=== PATIENT | female | born 1945 | race Caucasian/White ===

== ENCOUNTER 2017-12-06 15:16 | Emergency (ER) | payer MEDICARE ==
[2017-12-06] MEDS ORDERED: Sulfamethoxazole/Trimethoprim 800-160 MG Tab PO ONE (15:17)
[2017-12-06 15:32] VITALS: BP 148/77
--- NOTE | 2017-12-06 17:03 | EDM.PDOC ---
ED HPI GENERAL MEDICAL PROBLEM - General Chief Complaint: General Stated Complaint: falls, "hands are shaky" Time Seen by Provider: 12/06/17 16:06 Source of Information: Reports: Patient, Family () History Limitations: Reports: No Limitations - History of Present Illness INITIAL COMMENTS - FREE TEXT/NARRATIVE: Marielle is a 72 yo female who presents to the ER via private vehicle, accompanied by her . She has multiple complaints today. is concerned that she has fallen 3 times in the last few weeks. ADmits the first time she fell she was out power walking with him and ended up tripping. She was seen on the 26 of November by Cathi Penaloza and had x-rays of her right shoulder, ribs and right knee, which were unremarkable. This was roughly a week after her fall. She did hit her head on that occasion but had no loss of consciousness. She also complains of hand tremors which she is on propanolol for. We had seen her on the 17 of November and had increased her propanolol but she admits she never increased it and has not taken it for the last few days. She has right lower back pain and also has right knee pain as well still. We had filled out physical therapy form for referral and advised she may take her Tramadol for discomfort on the 30 of November. feels she has been more down, she does take an antidepressant. He feels the falls have brought her down and have made her more scared and worried about things. Right Lower Back Pain Score (Numeric/FACES): 4 - Related Data Allergies Allergy/AdvReac Type Severity Reaction Status Date / Time No Known Allergies Allergy Verified 12/06/17 15:31 Home Meds: Home Meds Cholecalciferol (Vitamin D3) [Vitamin D] 2,000 unit PO DAILY 10/30/13 [History] Multivitamin with Minerals [Multiple Vitamin] 1 tab PO DAILY 10/30/13 [History] Omeprazole [priLOSEC OTC] 20 mg PO DAILY 10/30/13 [History] Simvastatin [Zocor] 20 mg PO DAILY 10/30/13 [History] Aspirin [Adult Low Dose Aspirin EC] 81 mg PO DAILY 04/30/14 [History] Denosumab [Prolia] 60 mg SUBCUT ASDIRECTED 04/30/14 [History] FLUoxetine HCl [Fluoxetine HCl] 40 mg PO DAILY 12/06/17 [History] Propranolol HCl 20 mg PO BID 12/06/17 [History] Vitamin E 400 unit PO DAILY 12/06/17 [History] traMADol HCl [Tramadol HCl] 50 mg PO Q6H PRN 12/06/17 [History] Past Medical History HEENT History: Reports: Hard of Hearing Cardiovascular History: Reports: High Cholesterol Gastrointestinal History: Reports: Chronic Constipation, GERD, PUD Genitourinary History: Reports: Other (See Below) Other Genitourinary History: hematuria Musculoskeletal History: Reports: Arthritis, Osteoporosis Psychiatric History: Reports: Depression Endocrine/Metabolic History: Reports: Vitamin D Deficiency Hematologic History: Reports: Iron Deficiency - Past Surgical History GI Surgical History: Reports: Appendectomy Social & Family History - Tobacco Use Smoking Status *Q: Never Smoker - Recreational Drug Use Recreational Drug Use: No ED ROS GENERAL - Review of Systems Review Of Systems: See Below Constitutional: Reports: Fatigue. Denies: Fever, Chills HEENT: Reports: No Symptoms Respiratory: Reports: No Symptoms Cardiovascular: Reports: No Symptoms GI/Abdominal: Reports: No Symptoms : Reports: Frequency Musculoskeletal: Reports: Shoulder Pain, Joint Pain, Muscle Stiffness Neurological: Reports: Headache, Weakness. Denies: Change in Speech Psychiatric: Reports: Confusion ED EXAM, GENERAL - Physical Exam Exam: See Below Exam Limited By: No Limitations General Appearance: Alert, No Apparent Distress Eye Exam: Bilateral Eye: EOMI, PERRL Ears: Normal External Exam, Normal Canal, Normal TMs, Hearing Loss, Other ( bilateral hearing aids) Nose: Normal Inspection, Normal Mucosa, No Blood Throat/Mouth: Normal Inspection, Normal Lips, Normal Teeth, Normal Gums, Normal Oropharynx, Normal Voice, No Airway Compromise Head: Atraumatic, Normocephalic Neck: Normal Inspection, Supple, Non-Tender Respiratory/Chest: No Respiratory Distress, Lungs Clear, Normal Breath Sounds, No Accessory Muscle Use Cardiovascular: Regular Rate, Rhythm, No Edema, No Murmur GI/Abdominal: Normal Bowel Sounds, Soft, No Organomegaly, No Abnormal Bruit, No Mass Neurological: Alert, Oriented, No Motor/Sensory Deficits, Confused (slight confusion), Other (Score 23 Mini Mental exam) Psychiatric: Normal Affect, Normal Mood Skin Exam: Warm, Dry, Intact, Normal Color, No Rash Course - Vital Signs Last Recorded V/S: Last Vital Signs Temp 98.1 F 12/06/17 15:23 Pulse 83 12/06/17 15:23 Resp 20 12/06/17 15:23 BP 148/77 H 12/06/17 15:23 Pulse Ox 98 12/06/17 15:23 - Orders/Labs/Meds Orders: Active Orders 24 hr Category Date Time Status Head wo Cont [CT] Stat Exams 12/06/17 16:19 Taken Labs: Laboratory Tests 12/06/17 Range/Units 16:25 Urine Color Yellow (YELLOW) Urine Appearance Slightly cloudy (CLEAR) Urine pH 7.0 (4.5-8.0) Ur Specific [place] 1.020 (1.003-1.020) Urine Protein Negative (NEGATIVE) mg/dL Urine Glucose (UA) Negative (NEGATIVE) mg/dL Urine Ketones 80 H (NEGATIVE) mg/dL Urine Occult Blood Moderate H (NEGATIVE) Urine Nitrite Negative (NEGATIVE) Urine Bilirubin Negative (NEGATIVE) Urine Urobilinogen 4.0 H (0.2-1.0) EU/dL Ur Leukocyte Esterase Moderate H (NEGATIVE) Urine RBC 5-10 H (0-5) /HPF Urine WBC 10-20 H (0-5) /HPF Ur Squamous Epith Cells Few H (NOT SEEN) /HPF Amorphous Sediment Few H (NOT SEEN) /HPF Urine Bacteria Few H (NOT SEEN) /HPF Meds: Medications Discontinued Medications Generic Name Dose Route Start Last Admin Trade Name Freq PRN Reason Stop Dose Admin Trimethoprim/Sulfamethoxazole 1 packet 12/06/17 17:30 Take Home: Sulfameth/Trimet 800-160mg, 2 Pack PO 12/06/17 17:31 ONETIME ONE Departure - Departure Time of Disposition: 17:06 Disposition: Home, Self-Care 01 Clinical Impression: UTI, Urinary tract infectious disease, Frequent falls - Discharge Information Instructions: Urinary Tract Infection, Adult, [id number] Referrals: Anjel Cason PA-C [Primary Care Provider] - Forms: ED Department Discharge Additional Instructions: 1) Bactrim DS - 1 tablet twice a day for 7 days 2) Physical therapy referral as well. 3) Recheck in clinic after finishing antibiotic, sooner if any concerns. 4) Encourage increasing water intake. - Problem List & Annotations (1) UTI, Urinary tract infectious disease SNOMED Code(s): 65975686 Code(s): N39.0 - URINARY TRACT INFECTION, SITE NOT SPECIFIED Status: Acute Current Visit: Yes (2) Frequent falls SNOMED Code(s): 921024642 Code(s): R29.6 - REPEATED FALLS Status: Acute Current Visit: Yes - Problem List Review Problem List Initiated/Reviewed/Updated: Yes - My Orders Last 24 Hours: My Active Orders 12/06/17 16:19 Head wo Cont [CT] Stat - Assessment/Plan Last 24 Hours: My Active Orders 12/06/17 16:19 Head wo Cont [CT] Stat Plan: CT head was negative. Will treat UTI with Bactrim DS. REcommend follow up appointment in clinic after finishing antibiotic. may return sooner if any concerns. Advise increasing water intake. Physical therapy referral given as she had lost her last one. I do feel with her arthralgias it will give her some relief.
[2017-12-06] MEDS ORDERED: Take Home: Sulfamethoxazole/Trimethoprim 800-160 MG Tab, 2 Tab Pack PO ONE (17:30)
== END 2017-12-06 17:50 | disposition home or self-care (01) ==
LOC: CC.ED 15:16
DX: N39.0 Urinary tract infection, site not specified (principal); R29.6 Repeated falls; Z79.82 Long term (current) use of aspirin; Z79.899 Other long term (current) drug therapy
CPT/HCPCS: 70450; 81001; 99283; A9270; 99284

== ENCOUNTER 2019-02-16 12:24 | Emergency (ER) | payer MEDICARE ==
[2019-02-16 12:41] VITALS: BP 119/65; PULSE 83
[2019-02-16 13:24] LABS: CHLORIDE,CL 103 mEq/L (98-106); SODIUM,NA 143 mEq/L (136-145)
--- NOTE | 2019-02-16 14:06 | EDM.PDOC ---
ED HPI GENERAL MEDICAL PROBLEM - General Chief Complaint: General Stated Complaint: NAUSEA Time Seen by Provider: 02/16/19 12:30 Source of Information: Reports: Patient, Family History Limitations: Reports: No Limitations - History of Present Illness INITIAL COMMENTS - FREE TEXT/NARRATIVE: Patient presents to ER with with concerns of not feeling well. States had issues with nausea and vomiting this am. Patient does have some issues with relating story due to memory loss but able "to fill in the blanks" . She has a history of tremors for the last year and was seen by a neurologist a month ago. Sinemet was increased from TID to QID at that time and patient and concerned this is leading to her nausea. She has been on Sinemet for about a year. Does believe the med does help her tremors. Per the neurology note, is concerns for Parkinson's syndrome. She has had balance issues for some time. Did take much conversation to determine why patient was asking to be seen today as concerns of her med have been ongoing for about 3 weeks. states that is unusual for her to call him at work and complain of being "sick". Denies any chest pain, shortness of breath or present nausea. Did have one emesis this am. Complains of not having a good BM for several days, had small one 2 days ago. No fevers. No abdominal pain. Does feel bloated. Onset: Gradual Duration: Week(s): Location: Reports: Abdomen Associated Symptoms: Reports: Confusion, Loss of Appetite, Nausea/Vomiting. Denies: Chest Pain, Cough, Fever/Chills, Headaches, Shortness of Breath, Syncope , Weakness - Related Data Allergies Allergy/AdvReac Type Severity Reaction Status Date / Time No Known Allergies Allergy Verified 02/16/19 12:42 Home Meds: Home Meds Cholecalciferol (Vitamin D3) [Vitamin D] 5,000 unit PO DAILY 10/30/13 [History] Multivitamin with Minerals [Multiple Vitamin] 1 tab PO DAILY 10/30/13 [History] Simvastatin [Zocor] 20 mg PO DAILY 10/30/13 [History] Aspirin [Adult Low Dose Aspirin EC] 81 mg PO DAILY 04/30/14 [History] Denosumab [Prolia] 60 mg SUBCUT ASDIRECTED 04/30/14 [History] FLUoxetine HCl [Fluoxetine HCl] 40 mg PO DAILY 12/06/17 [History] Propranolol HCl 40 mg PO BID 12/06/17 [History] Vitamin E 400 unit PO DAILY 12/06/17 [History] Carbidopa/Levodopa [Carbidopa-Levodopa 25-100 Tab] 25 - 100 mg PO QID 02/16/19 [ History] Omeprazole 20 mg PO DAILY 02/16/19 [History] Past Medical History HEENT History: Reports: Hard of Hearing Cardiovascular History: Reports: High Cholesterol Gastrointestinal History: Reports: Chronic Constipation, GERD, PUD Genitourinary History: Reports: Other (See Below) Other Genitourinary History: hematuria [employer] F[employer]ER History: Reports: Musculoskeletal History: Reports: Arthritis, Osteoporosis Psychiatric History: Reports: Depression Endocrine/Metabolic History: Reports: Vitamin D Deficiency Hematologic History: Reports: Iron Deficiency - Past Surgical History GI Surgical History: Reports: Appendectomy Social & Family History - Family History Family Medical History: Noncontributory - Tobacco Use Smoking Status *Q: Former Smoker Years of Tobacco use: 30 Packs/Tins Daily: 0.2 Used Tobacco, but Quit: Yes Month/Year Tobacco Last Used: 1979 - Caffeine Use Caffeine Use: Reports: Coffee, Soda - Recreational Drug Use Recreational Drug Use: No ED ROS GENERAL - Review of Systems Review Of Systems: See Below Constitutional: Reports: Fatigue, Decreased Appetite. Denies: Fever, Chills, Malaise, Weakness Respiratory: Denies: Shortness of Breath, Cough Cardiovascular: Denies: Chest Pain, Edema, Lightheadedness Endocrine: Reports: Fatigue GI/Abdominal: Reports: Constipation, Decreased Appetite, Distension, Nausea, Vomiting. Denies: Abdominal Pain : Reports: No Symptoms Musculoskeletal: Reports: No Symptoms Skin: Reports: No Symptoms Neurological: Reports: Confusion Psychiatric: Reports: No Symptoms ED EXAM, GENERAL - Physical Exam Exam: See Below Exam Limited By: No Limitations General Appearance: Alert, WD/WN, No Apparent Distress Ears: Normal External Exam, Normal TMs Nose: Normal Inspection, Normal Mucosa, No Blood Throat/Mouth: Normal Inspection, Normal Oropharynx Head: Normocephalic Neck: Normal Inspection, Supple, Non-Tender Respiratory/Chest: No Respiratory Distress, Lungs Clear, Normal Breath Sounds GI/Abdominal: Normal Bowel Sounds, Soft, Non-Tender Extremities: Other (tremors, right greater than left) Neurological: Alert, Oriented (person and place) Skin Exam: Warm, Dry Course - Vital Signs Last Recorded V/S: Last Vital Signs Temp 98.4 F 02/16/19 12:38 Pulse 83 02/16/19 12:38 Resp 18 02/16/19 12:38 BP 119/65 02/16/19 12:38 Pulse Ox 98 02/16/19 12:38 - Orders/Labs/Meds Labs: Laboratory Tests 02/16/19 02/16/19 Range/Units 12:48 12:48 WBC 6.5 (5.0-10.0) 10^3/uL RBC 4.87 (4.00-5.50) 10^6/uL Hgb 14.7 (12.0-16.0) g/dL Hct 44.7 (37.0-47.0) % MCV 91.8 (82.0-94.0) fL MCH 30.2 (27.0-32.0) pg MCHC 32.9 L (33.0-38.0) g/dL RDW Coeff of Catrina 13.9 (11.0-15.0) % Plt Count 309 (150-400) 10^3/uL Neut % (Auto) 67.3 (35-85) % Lymph % (Auto) 22.1 (10-55) % [place] % (Auto) 8.3 (0-16) % Eos % (Auto) 2.0 (0-5) % Baso % (Auto) 0.3 (0-3) % Neut # (Auto) 4.39 (1.80-7.00) 10^3/uL Lymph # (Auto) 1.44 (1.00-4.80) 10^3/uL [place] # (Auto) 0.54 (0.00-0.80) 10^3/uL Eos # (Auto) 0.13 (0.00-0.45) 10^3/uL Baso # (Auto) 0.02 10^3/uL Sodium 143 (136-145) mEq/L Potassium 4.0 (3.5-5.0) mEq/L Chloride 103 (98-106) mEq/L Carbon Dioxide 27 (21-32) mmol/L BUN 9 (7-18) mg/dL Creatinine 0.8 (0.6-1.0) mg/dL Est Cr Clr Drug Dosing 51.03 mL/min Estimated GFR (MDRD) > 60 (>=60) mL/min Glucose 105 H (75-99) mg/dL Calcium 9.8 (8.4-10.1) mg/dL Total Bilirubin 0.7 (0.0-1.0) mg/dL AST 25 (15-37) U/L ALT 6 L (12-78) U/L Alkaline Phosphatase 69 (46-116) U/L C-Reactive Protein < 0.2 L (0.2-0.8) mg/dL Total Protein 7.1 (6.4-8.2) g/dL Albumin 4.1 (3.4-5.0) g/dL - Re-Assessments/Exams Free Text/Narrative Re-Assessment/Exam: 02/16 Labs are normal. Xray shows large amount of stool, no obstruction. Discussed results and medication possible side effects. Is willing to continue to take Sinemet QID as does believe it is necessary to help tremors. Offered enema but declines, feels can do this at home. Will need to start a stool softener. Zofran for nausea. Follow up with Dr. aJmil if side effects persist. verbalizes understanding. Departure - Departure Time of Disposition: 14:03 Disposition: Home, Self-Care 01 Condition: Good Clinical Impression: Constipation - Discharge Information *PRESCRIPTION DRUG MONITORING PROGRAM REVIEWED*: No *COPY OF PRESCRIPTION DRUG MONITORING REPORT IN PATIENT FLO: No Referrals: Bharat Jamil MD [Primary Care Provider] - Forms: ED Department Discharge Additional Instructions: 1. Fleets enema or dulcolax suppository- can obtain from pharmacy 2. Start Colace twice a day 3. Push fluids 4. Zofran 4 mg under tongue as needed for nausea 5. Follow up with Dr. Jamil if continue to have intolerance of Sinemet 6. Call with any questions or concerns. Sepsis Event Note - Evaluation Sepsis Screening Result: No Definite Risk - Focused Exam Date Exam was Performed: 02/18/19 Time Exam was Performed: 20:15
== END 2019-02-16 14:10 | disposition home or self-care (01) ==
LOC: CC.ED 12:24 → SUPCPDRO 12:24 → CC.ED 14:10
DX: K59.00 Constipation, unspecified (principal); E78.00 Pure hypercholesterolemia, unspecified; K21.9 Gastro-esophageal reflux disease without esophagitis; M19.90 Unspecified osteoarthritis, unspecified site; F32.9 Major depressive disorder, single episode, unspecified; Z87.891 Personal history of nicotine dependence; Z79.899 Other long term (current) drug therapy; Z79.82 Long term (current) use of aspirin
CPT/HCPCS: 36415; 74019; 80053; 85025; 86140; 99284; 99285-25

== ENCOUNTER 2019-03-25 16:33 | Emergency (ER) | payer MEDICARE ==
[2019-03-25 16:56] VITALS: BP 148/84; PULSE 82
--- NOTE | 2019-03-25 18:04 | EDM.PDOC ---
ED HPI GENERAL MEDICAL PROBLEM - General Chief Complaint: General Stated Complaint: constipation, abdomen pain Time Seen by Provider: 03/25/19 16:53 Source of Information: Reports: Patient History Limitations: Reports: No Limitations - History of Present Illness INITIAL COMMENTS - FREE TEXT/NARRATIVE: This patient is a 73 year old female that presents to the ER. Patient is with her that is also historian for this patient. Patient reports that today she was out shopping when she started having some mild abdominal pain. Patient reports that it "feels like I have to go, but cant." The reports that he thinks she is constipated. The patent denies rousseau, dizziness, n, v, d, f, chest pain, shortness of breath. The patient has attempted to go the bathroom twice since being in the ER, without success for BM. Onset: Today Onset Date: 03/25/19 Location: Reports: Abdomen Quality: Reports: Other ("feel like need to go, but cant") Severity: Mild Improves with: Reports: None Worsens with: Reports: None Associated Symptoms: Denies: Confusion, Chest Pain, Cough, cough w sputum, Diaphoresis, Fever/Chills, Headaches, Loss of Appetite, Malaise, Nausea/Vomiting , Rash, Seizure, Shortness of Breath, Syncope, Weakness Right Middle Abdomen Pain Score (Numeric/FACES): 2 - Related Data Allergies Allergy/AdvReac Type Severity Reaction Status Date / Time No Known Allergies Allergy Verified 02/16/19 12:42 Home Meds: Home Meds Cholecalciferol (Vitamin D3) [Vitamin D] 5,000 unit PO DAILY 10/30/13 [History] Multivitamin with Minerals [Multiple Vitamin] 1 tab PO DAILY 10/30/13 [History] Simvastatin [Zocor] 20 mg PO DAILY 10/30/13 [History] Aspirin [Adult Low Dose Aspirin EC] 81 mg PO DAILY 04/30/14 [History] FLUoxetine HCl [Fluoxetine HCl] 40 mg PO DAILY 12/06/17 [History] Propranolol HCl 40 mg PO BID 12/06/17 [History] Vitamin E 400 unit PO DAILY 12/06/17 [History] Carbidopa/Levodopa [Carbidopa-Levodopa 25-100 Tab] 25 - 100 mg PO QID 02/16/19 [ History] Omeprazole 20 mg PO DAILY 01/03/20 [History] Past Medical History HEENT History: Reports: Hard of Hearing Cardiovascular History: Reports: High Cholesterol Gastrointestinal History: Reports: Chronic Constipation, GERD, PUD Genitourinary History: Reports: Other (See Below) Other Genitourinary History: hematuria [employer] History: Reports: Musculoskeletal History: Reports: Arthritis, Osteoporosis Neurological History: Reports: Parkinson's Psychiatric History: Reports: Depression Endocrine/Metabolic History: Reports: Vitamin D Deficiency Hematologic History: Reports: Iron Deficiency - Past Surgical History HEENT Surgical History: Reports: None Cardiovascular Surgical History: Reports: None GI Surgical History: Reports: Appendectomy Female Surgical History: Reports: None Endocrine Surgical History: Reports: None Musculoskeletal Surgical History: Reports: None Social & Family History - Family History Family Medical History: Noncontributory - Tobacco Use Smoking Status *Q: Never Smoker Second Hand Smoke Exposure: No - Caffeine Use Caffeine Use: Reports: None - Recreational Drug Use Recreational Drug Use: No ED ROS GENERAL - Review of Systems Review Of Systems: See Below Constitutional: Reports: No Symptoms HEENT: Reports: No Symptoms Respiratory: Reports: No Symptoms Cardiovascular: Reports: No Symptoms Endocrine: Reports: No Symptoms GI/Abdominal: Reports: Abdominal Pain, Constipation. Denies: Nausea, Vomiting Musculoskeletal: Reports: No Symptoms Skin: Reports: No Symptoms Neurological: Reports: No Symptoms Psychiatric: Reports: No Symptoms Hematologic/Lymphatic: Reports: No Symptoms Immunologic: Reports: No Symptoms ED EXAM, GENERAL - Physical Exam Exam: See Below Exam Limited By: No Limitations General Appearance: Alert, WD/WN, No Apparent Distress Eye Exam: Bilateral Eye: Normal Inspection, PERRL Ears: Normal External Exam, Normal Canal, Hearing Grossly Normal, Normal TMs Ear Exam: Bilateral Ear: Auricle Normal, Canal Normal, TM normal Nose: Normal Inspection, Normal Mucosa, No Blood Throat/Mouth: Normal Inspection, Normal Lips, Normal Teeth, Normal Gums, Normal Oropharynx, Normal Voice, No Airway Compromise Head: Atraumatic, Normocephalic Neck: Normal Inspection, Supple, Non-Tender, Full Range of Motion Respiratory/Chest: No Respiratory Distress, Lungs Clear, Normal Breath Sounds, No Accessory Muscle Use, Chest Non-Tender Cardiovascular: Normal Peripheral Pulses, Regular Rate, Rhythm, No Edema, No Gallop, No JVD, No Murmur, No Rub Peripheral Pulses: 2+: Radial (L), Radial (R), Posterior Tibial (L), Posterior Tibial (R) GI/Abdominal: Normal Bowel Sounds, Soft, Non-Tender, No Organomegaly, No Distention, No Abnormal Bruit, No Mass, Pelvis Stable. No: Guarding, Tender Back Exam: Normal Inspection, Full Range of Motion Extremities: Normal Inspection, Normal Range of Motion, Non-Tender, No Pedal Edema, Normal Capillary Refill Neurological: Alert, Oriented, Normal Cognition, Normal Gait, No Motor/Sensory Deficits Psychiatric: Normal Affect, Normal Mood Skin Exam: Warm, Dry, Intact, Normal Color, No Rash Lymphatic: No Adenopathy Course - Vital Signs Last Recorded V/S: Last Vital Signs Temp 98.3 F 03/25/19 16:50 Pulse 82 03/25/19 16:50 Resp 16 03/25/19 16:50 BP 148/84 H 03/25/19 16:50 Pulse Ox 100 03/25/19 16:50 - Orders/Labs/Meds Orders: Active Orders 24 hr Category Date Time Status Enema [RC] ASDIRECTED Care 03/25/19 18:05 Active Abdomen 2V AP Flat Upright [CR] Stat Exams 03/25/19 17:05 Taken Labs: Laboratory Tests 03/25/19 03/25/19 03/25/19 Range/Units 17:05 17:05 17:05 WBC 7.5 (5.0-10.0) 10^3/uL RBC 4.48 (4.00-5.50) 10^6/uL Hgb 13.6 (12.0-16.0) g/dL Hct 41.4 (37.0-47.0) % MCV 92.4 (82.0-94.0) fL MCH 30.4 (27.0-32.0) pg MCHC 32.9 L (33.0-38.0) g/dL RDW Coeff of Catrina 14.1 (11.0-15.0) % Plt Count 279 (150-400) 10^3/uL Neut % (Auto) 70.7 (35-85) % Lymph % (Auto) 16.6 (10-55) % [place] % (Auto) 11.9 (0-16) % Eos % (Auto) 0.7 (0-5) % Baso % (Auto) 0.1 (0-3) % Neut # (Auto) 5.31 (1.80-7.00) 10^3/uL Lymph # (Auto) 1.25 (1.00-4.80) 10^3/uL [place] # (Auto) 0.89 H (0.00-0.80) 10^3/uL Eos # (Auto) 0.05 (0.00-0.45) 10^3/uL Baso # (Auto) 0.01 10^3/uL Sodium 141 (136-145) mEq/L Potassium 3.5 (3.5-5.0) mEq/L Chloride 102 (98-106) mEq/L Carbon Dioxide 28 (21-32) mmol/L BUN 9 (7-18) mg/dL Creatinine 0.7 (0.6-1.0) mg/dL Est Cr Clr Drug Dosing 63.45 mL/min Estimated GFR (MDRD) > 60 (>=60) mL/min Glucose 89 (75-99) mg/dL Calcium 9.3 (8.4-10.1) mg/dL Total Bilirubin 0.6 (0.0-1.0) mg/dL AST 24 (15-37) U/L ALT 36 (12-78) U/L Alkaline Phosphatase 62 (46-116) U/L Total Protein 6.7 (6.4-8.2) g/dL Albumin 3.8 (3.4-5.0) g/dL Amylase 45 (25-115) U/L Lipase 81 (73-393) U/L Urine Color Yellow (YELLOW) Urine Appearance Clear (CLEAR) Urine pH 8.0 (4.5-8.0) Ur Specific [place] 1.015 (1.003-1.020) Urine Protein Negative (NEGATIVE) mg/dL Urine Glucose (UA) Negative (NEGATIVE) mg/dL Urine Ketones 15 H (NEGATIVE) mg/dL Urine Occult Blood Trace-lysed H (NEGATIVE) Urine Nitrite Negative (NEGATIVE) Urine Bilirubin Negative (NEGATIVE) Urine Urobilinogen 0.2 (0.2-1.0) EU/dL Ur Leukocyte Esterase Trace H (NEGATIVE) Urine RBC Not seen (0-5) /HPF Urine WBC 0-5 (0-5) /HPF Meds: Medications Discontinued Medications Generic Name Dose Route Start Last Admin Trade Name Freq PRN Reason Stop Dose Admin Magnesium Citrate 300 ml 02/09/20 18:06 03/25/19 19:04 Citrate Of Magnesia PO 03/25/19 18:07 Not Given ONETIME ONE - Radiology Interpretation Free Text/Narrative:: KUB: Moderate constipation. no obstructive pattern. Departure - Departure Time of Disposition: 18:05 Disposition: Home, Self-Care 01 Condition: Good Clinical Impression: Constipation Qualifiers: Constipation type: unspecified constipation type Qualified Code(s): K59.00 - Constipation, unspecified - Discharge Information *PRESCRIPTION DRUG MONITORING PROGRAM REVIEWED*: Not Applicable *COPY OF PRESCRIPTION DRUG MONITORING REPORT IN PATIENT FLO: Not Applicable Instructions: Constipation, Adult Referrals: Bharat Jamil MD [Primary Care Provider] - Forms: ED Department Discharge Additional Instructions: Followup with primary care provider Return to the ER for worsening of condition or any emergent concerns Increase fluids Attempt fleet enema at home, if no success having bowel movement, then give the Mag Citrate drink in the morning May use over the counter Miralax next time for constipation Sepsis Event Note - Evaluation Sepsis Screening Result: No Definite Risk - Focused Exam Vital Signs: Vital Signs Temp Pulse Resp BP Pulse Ox 03/25/19 16:50 98.3 F 82 16 148/84 H 100 Date Exam was Performed: 03/25/19 Time Exam was Performed: 19:05 - My Orders Last 24 Hours: My Active Orders 03/25/19 17:05 Abdomen 2V AP Flat Upright [CR] Stat 03/25/19 18:05 Enema [RC] ASDIRECTED - Assessment/Plan Last 24 Hours: My Active Orders 03/25/19 17:05 Abdomen 2V AP Flat Upright [CR] Stat 03/25/19 18:05 Enema [RC] ASDIRECTED Plan: PLEASE SEE RN NOTE FOR PFSH
[2019-03-25] MEDS ORDERED: Magnesium Citrate Solution 296 ML Bottle PO ONE (18:06)
[2019-03-25 18:49] LABS: CHLORIDE,CL 102 mEq/L (98-106); SODIUM,NA 141 mEq/L (136-145)
== END 2019-03-25 19:18 | disposition home or self-care (01) ==
LOC: CC.ED 16:33
DX: K59.00 Constipation, unspecified (principal); E78.00 Pure hypercholesterolemia, unspecified; K21.9 Gastro-esophageal reflux disease without esophagitis; M19.90 Unspecified osteoarthritis, unspecified site; F32.9 Major depressive disorder, single episode, unspecified; Z90.49 Acquired absence of other specified parts of digestive tract; Z79.899 Other long term (current) drug therapy; Z79.82 Long term (current) use of aspirin
CPT/HCPCS: 36415; 74019; 80053; 81001; 82150; 83690; 85025; 99283; 99283-25; A9270-GY

== ENCOUNTER → 2019-08-24 | Day surgery (SDC) | payer MEDICARE ==
[~2019-08-24] MED LIST: Ketamine 200 MG/20 ML MDV IV ONE; Propofol 200 MG/20 ML SDV IV ONE; fentaNYL 100 MCG/2 ML SDV IV ONE
[2019-08-24] MEDS: Lactated Ringers 1,000 ML IV SCH (08:33)
[2019-08-24 10:04] VITALS: BP 168/68; PULSE 58
--- NOTE | 2019-08-24 11:17 | OR ---
DATE OF OPERATION: 08/24/2019 PREOPERATIVE DIAGNOSIS: 1. ABDOMINAL PAIN. 2. WEIGHT LOSS. POSTOPERATIVE DIAGNOSIS: 1. ABDOMINAL PAIN. 2. WEIGHT LOSS. SURGEON: Bharat Jamil MD PROCEDURE: 1. ESOPHAGOGASTRODUODENOSCOPY WITH DISTAL ESOPHAGEAL BIOPSIES X2, ANTRAL ROBERT. 2. FULL-LENGTH COLONOSCOPY WITH EXTREMELY POOR PREP. COMPLICATIONS: None. SPECIMEN: 1. Antral ROBERT. 2. Distal esophageal biopsy x2. FINDINGS: 1. Full-length EGD. 2. Large hiatal hernia with spontaneous GERD. 3. Mcqueen esophagus. 4. Full-length colonoscopy with extremely poor prep. 5. No obvious colon abnormalities. RECOMMENDATIONS: Ongoing medical followup. INDICATIONS: The patient has been having weight loss, abdominal pain. She does have occasional altered bowel habits and constipation, diarrhea alternating. Kiara Cason sent her for diagnostic scopes after her CT of the abdomen and pelvis was apparently negative. DESCRIPTION OF PROCEDURE: The patient was prepped and draped, placed in the left lateral decubitus position. A lubricated Olympus gastroscope was inserted over a bit, advanced to cricopharyngeus area and easily intubated in the esophagus. The esophageal lining was benign in its entire course until its most distal aspect. The patient had a large hiatal hernia with spontaneous reflux. 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 Two biopsies were taken of that area. The scope was advanced into the stomach through the pylorus and into the second portion of the duodenum. This and the duodenal bulb were unremarkable. The scope was brought back into the stomach and retroflexed. The upper fundus and cardia were benign other than the large hernia. Upon straightening, the rest of the fundus and antrum were benign. No polyps, masses, ulcerations, or bleeding sites. A CLOtest was obtained. Air was then suctioned from the stomach and the scope removed without complication. A lubricated Olympus colonoscope was then inserted. Unfortunately, the patient has an extremely poor prep. She had a lot of dark-colored liquid stool throughout that made traversing her colon very tenuous. We were able to get all the way to the cecal pouch, irrigate quite thoroughly. No gross abnormalities were seen. There were areas where it was just too hard to suction as she had dark stool with solid particles and not all these areas could be visualized. Approximately half the colon probably was not seen well. Throughout the length of the colon, I could find no polyps, masses, ulceration, or bleeding sites. No vascular abnormalities or signs of colitis. There were no significant diverticula. The rectal vault appeared benign, although I could not retroflex due to the volume of stool safely. Air was then suctioned. Scope removed without complication. ROMEL/SYMONE /[id number]
== END ==
LOC: CC.SDS 08:15
PROVIDERS: ATTEND Family Medicine
DX: K22.70 Barrett's esophagus without dysplasia (principal); K29.70 Gastritis, unspecified, without bleeding; K25.9 Gastric ulcer, unspecified as acute or chronic, without hemorrhage or perforation; K44.9 Diaphragmatic hernia without obstruction or gangrene; K21.0 Gastro-esophageal reflux disease with esophagitis; R19.4 Change in bowel habit; R63.4 Abnormal weight loss; Z11.59 Encounter for screening for other viral diseases; Z79.82 Long term (current) use of aspirin; Z79.899 Other long term (current) drug therapy; Z87.891 Personal history of nicotine dependence; Z68.1 Body mass index [BMI] 19.9 or less, adult
CPT/HCPCS: 00813; 87081; 88305; J2704; J3010; J7120; U0002

== ENCOUNTER 2019-10-09 19:08 | Observation (INO) | payer MEDICARE ==
--- NOTE | 2019-10-09 20:01 | EDM.PDOC ---
ED HPI GENERAL MEDICAL PROBLEM - General Chief Complaint: General Stated Complaint: fall Time Seen by Provider: 10/09/19 19:12 Source of Information: Reports: Patient, EMS, Family History Limitations: Reports: No Limitations - History of Present Illness INITIAL COMMENTS - FREE TEXT/NARRATIVE: Patient presents per EMS after a fall at home. relates that she had been sitting on the couch watching TV. Had gotten up and he heard a "bang". Went in to the kitchen and found her laying over the cupboard door. STates was "hanging by her arm". He relates she had complained of dizziness and felt faint after getting up. He laid her on to the ground and states she was unresponsive for short period of time. Complained of right arm pain after aroused. Called EMS and had reported she was unresponsive and had shallow breathing. On arrival per EMS to the scene, patient was alert. Complained of mild neck pain. Denies head pain. relates she had fallen recently, no head trauma. Is weak as she has not been eating well. Onset: Today, Sudden Duration: Minutes:, Improving Location: Reports: Head, Neck Quality: Reports: Ache Severity: Mild Improves with: Reports: Rest Associated Symptoms: Reports: Confusion, Syncope, Weakness. Denies: Fever/Chills, Loss of Appetite, Nausea/Vomiting, Shortness of Breath Treatments NURSING EDUCATOR: Reports: Cervical Collar, Spinal Immobilization Right Elbow Pain Score (Numeric/FACES): 3 - Related Data Allergies Allergy/AdvReac Type Severity Reaction Status Date / Time No Known Allergies Allergy Verified 10/09/19 19:34 Home Meds: Home Meds Cholecalciferol (Vitamin D3) [Vitamin D] 5,000 unit PO DAILY 10/30/13 [History] Multivitamin with Minerals [Multiple Vitamin] 1 tab PO DAILY 10/30/13 [History] Simvastatin [Zocor] 20 mg PO DAILY 10/30/13 [History] Aspirin [Adult Low Dose Aspirin EC] 81 mg PO DAILY 04/30/14 [History] FLUoxetine HCl [Fluoxetine HCl] 40 mg PO DAILY 12/06/17 [History] Vitamin E 400 unit PO DAILY 12/06/17 [History] Carbidopa/Levodopa [Carbidopa-Levodopa 25-100 Tab] 1 each PO TID 02/16/19 [History] Omeprazole 20 mg PO DAILY 02/16/19 [History] Denosumab [Prolia] 60 mg SUBCUT ASDIRECTED 08/23/19 [History] Past Medical History HEENT History: Reports: Hard of Hearing Cardiovascular History: Reports: High Cholesterol Gastrointestinal History: Reports: Chronic Constipation, GERD, PUD Genitourinary History: Reports: Other (See Below) Other Genitourinary History: hematuria [employer] History: Reports: Musculoskeletal History: Reports: Arthritis, Osteoporosis Neurological History: Reports: Parkinson's Psychiatric History: Reports: Depression Endocrine/Metabolic History: Reports: Vitamin D Deficiency Hematologic History: Reports: Iron Deficiency - Past Surgical History HEENT Surgical History: Reports: None Cardiovascular Surgical History: Reports: None GI Surgical History: Reports: Appendectomy Female Surgical History: Reports: None Endocrine Surgical History: Reports: None Musculoskeletal Surgical History: Reports: None Social & Family History - Family History Family Medical History: Noncontributory - Caffeine Use Caffeine Use: Reports: None ED ROS GENERAL - Review of Systems Review Of Systems: See Below Constitutional: Reports: Malaise, Weakness, Fatigue. Denies: Fever, Chills HEENT: Denies: Ear Pain, Sinus Problem, Throat Pain Respiratory: Denies: Shortness of Breath, Cough Cardiovascular: Reports: Lightheadedness. Denies: Chest Pain Endocrine: Reports: Fatigue GI/Abdominal: Denies: Abdominal Pain, Nausea, Vomiting Musculoskeletal: Reports: Neck Pain Skin: Reports: Pallor Neurological: Reports: Weakness ED EXAM, GENERAL - Physical Exam Exam: See Below Exam Limited By: No Limitations General Appearance: Alert, WD/WN, No Apparent Distress Ears: Normal External Exam, Normal TMs Nose: Normal Inspection, Normal Mucosa, No Blood Throat/Mouth: Normal Inspection, Normal Oropharynx Head: Normocephalic Neck: Normal Inspection, Supple, Other (c-colllar intact) Respiratory/Chest: No Respiratory Distress, Lungs Clear, Normal Breath Sounds Cardiovascular: Regular Rate, Rhythm GI/Abdominal: Normal Bowel Sounds, Soft Extremities: Normal Inspection, No Pedal Edema Neurological: Alert, Oriented (person and place) Skin Exam: Warm, Dry Course - Vital Signs Last Recorded V/S: Last Vital Signs Temp 97.8 F 10/09/19 19:22 Pulse 77 10/09/19 19:22 Resp 14 10/09/19 19:22 BP 137/75 10/09/19 19:54 Pulse Ox 96 10/09/19 19:22 - Orders/Labs/Meds Orders: Active Orders 24 hr Category Date Time Status Cervical Spine wo Cont [CT] Stat Exams 10/09/19 19:23 Taken Head wo Cont [CT] Stat Exams 10/09/19 19:23 Taken UA RFX OVIDIO AND CULT IF INDIC [URIN] Stat Lab 10/09/19 20:03 Ordered EKG 12 Lead [EK] Stat Ther 10/09/19 20:03 Stop Req Labs: Laboratory Tests 10/09/19 10/09/19 Range/Units 20:10 20:10 WBC 6.9 (5.0-10.0) 10^3/uL RBC 4.38 (4.00-5.50) 10^6/uL Hgb 13.2 (12.0-16.0) g/dL Hct 39.6 (37.0-47.0) % MCV 90.4 (82.0-94.0) fL MCH 30.1 (27.0-32.0) pg MCHC 33.3 (33.0-38.0) g/dL RDW Coeff of Catrina 13.5 (11.0-15.0) % Plt Count 276 (150-400) 10^3/uL Neut % (Auto) 74.7 (35-85) % Lymph % (Auto) 14.4 (10-55) % [place] % (Auto) 9.9 (0-16) % Eos % (Auto) 0.9 (0-5) % Baso % (Auto) 0.1 (0-3) % Neut # (Auto) 5.18 (1.80-7.00) 10^3/uL Lymph # (Auto) 1.00 (1.00-4.80) 10^3/uL [place] # (Auto) 0.69 (0.00-0.80) 10^3/uL Eos # (Auto) 0.06 (0.00-0.45) 10^3/uL Baso # (Auto) 0.01 10^3/uL Sodium 139 (136-145) mEq/L Potassium 3.4 L (3.5-5.0) mEq/L Chloride 104 (98-106) mEq/L Carbon Dioxide 25 (21-32) mmol/L BUN 14 D (7-18) mg/dL Creatinine 0.7 (0.6-1.0) mg/dL Est Cr Clr Drug Dosing 46.79 mL/min Estimated GFR (MDRD) > 60 (>=60) mL/min Glucose 95 (75-99) mg/dL Calcium 8.6 (8.4-10.1) mg/dL Total Bilirubin 0.4 (0.0-1.0) mg/dL AST 14 L (15-37) U/L ALT 10 L (12-78) U/L Alkaline Phosphatase 59 (46-116) U/L Total Protein 6.2 L (6.4-8.2) g/dL Albumin 3.5 (3.4-5.0) g/dL Departure - Departure Time of Disposition: 20:49 Disposition: Refer to Observation Condition: Fair Clinical Impression: Near syncope - Discharge Information *PRESCRIPTION DRUG MONITORING PROGRAM REVIEWED*: No *COPY OF PRESCRIPTION DRUG MONITORING REPORT IN PATIENT FLO: No Referrals: Bharat Jamil MD [Primary Care Provider] - Forms: ED Department Discharge Sepsis Event Note (ED) - Evaluation Sepsis Screening Result: No Definite Risk - Focused Exam Vital Signs: Vital Signs Temp Pulse Resp BP BP Pulse Ox 10/09/19 19:54 137/75 10/09/19 19:22 97.8 F 77 14 138/76 96 - Problem List & Annotations (1) Near syncope SNOMED Code(s): 282374147 Code(s): R55 - SYNCOPE AND COLLAPSE Status: Acute Priority: High Current Visit: Yes - Problem List Review Problem List Initiated/Reviewed/Updated: Yes - My Orders Last 24 Hours: My Active Orders 10/09/19 19:23 Cervical Spine wo Cont [CT] Stat Head wo Cont [CT] Stat 10/09/19 20:03 UA RFX OVIDIO AND CULT IF INDIC [URIN] Stat EKG 12 Lead [EK] Stat - Assessment/Plan Admission H&P: Please use this note as an admission H&P Last 24 Hours: My Active Orders 10/09/19 19:23 Cervical Spine wo Cont [CT] Stat Head wo Cont [CT] Stat 10/09/19 20:03 UA RFX OVIDIO AND CULT IF INDIC [URIN] Stat EKG 12 Lead [EK] Stat Assessment:: Near Syncope Plan: Patient will be admitted to observation. Will continue with cardiac monitoring and neuro checks. Repeat labs in am.
[2019-10-09 20:28] LABS: CHLORIDE,CL 104 mEq/L (98-106); SODIUM,NA 139 mEq/L (136-145)
[2019-10-09] MEDS ORDERED: Acetaminophen 325 MG Tab PO PRN (23:58)
[2019-10-09] MEDS ORDERED: Ondansetron 4 MG Tab.DIS PO PRN (23:58)
[2019-10-09] MEDS ORDERED: Sodium Chloride 0.9% 10 ML Syringe FLUSH PRN (23:58)
[2019-10-09] MEDS ORDERED: Ondansetron 4 MG/2 ML SDV IV PRN (23:58)
[2019-10-10 07:22] LABS: CHLORIDE,CL 106 mEq/L (98-106); SODIUM,NA 139 mEq/L (136-145)
[2019-10-10] MEDS ORDERED: Aspirin 81 MG Tab.EC PO SCH (08:00)
[2019-10-10] MEDS ORDERED: Cholecalciferol (Vitamin D3) 25 MCG Tab PO SCH (08:30)
[2019-10-10] MEDS ORDERED: OMEPRAZOLE 20 MG PO SCH (09:00)
[2019-10-10] MEDS: LEVODOPA PO SCH ×2 (09:29→13:51)
[2019-10-10] MEDS: CARBIDOPA PO SCH ×2 (09:29→13:51)
[2019-10-10] MEDS ORDERED: FLUOXETINE 40 MG PO SCH (09:30)
[2019-10-10 12:47] VITALS: BP 133/74; PULSE 80
[2019-10-10] MEDS ORDERED: SIMVASTATIN 20 MG PO SCH (20:00)
--- NOTE | 2019-10-10 20:31 | PCM.DCSUM1 ---
Discharge Summary - Hospital Course Free Text/Narrative:: Marielle is a 74 year old female who presented to ER per EMS after a fall at home. Had been sitting on the cough watching TV and had gotten up and felt "lightheaded". She had fallen over the cupboard door. states she was "hanging" over the door by her arm. laid her down to the ground and she was unresponsive for short period of time. concerned that her breathing was shallow so called 911. She complained of right arm pain after arousing. On arrival to the scene, per EMS, patient was alert, complained of mild neck pain. IN ER, patient was alert. Answers questions appropriately. Oriented to person and place. GCS 15. CT scan of head and neck were negative. Labs normal. EKG showed junctional rhythm. Admitted for neuro checks, cardiac monitoring. Diagnosis: Stroke: No Modified Kingman Scale: No Symptoms at All Modified Kingman Scale Score: 0 - Discharge Data Discharge Date: 10/10/19 Discharge Disposition: Home, Self-Care 01 Condition: Good - Referral to Home Health Primary Care Physician: Bharat Jamil MD - Discharge Diagnosis/Problem(s) (1) Near syncope SNOMED Code(s): 767637992 ICD Code: R55 - SYNCOPE AND COLLAPSE Status: Acute Priority: High - Patient Summary/Data Complications: none Consults: Consultations 10/10/19 08:49 Consult to Physical Therapy [PT Evaluation and Treatment] [CONS] Routine Hospital Course: Patient doing well this afternoon. Has been ambulating with staff with standby assist, feels more steady this afternoon. cardiac monitor shows NSR, unchanged. Labs remain stable this am, troponin negative. Did have echocardiogram and carotid ultrasound this afternoon. Meal intake fair. No headache, chest discomfort, shortness of breath, nausea or vomiting. Right elbow is mildly tender, has abrasion from fall but good range of motion. - Patient Instructions Diet: Usual Diet as Tolerated Activity: As Tolerated - Discharge Plan *PRESCRIPTION DRUG MONITORING PROGRAM REVIEWED*: No *COPY OF PRESCRIPTION DRUG MONITORING REPORT IN PATIENT FLO: No Home Medications: Home Meds Cholecalciferol (Vitamin D3) [Vitamin D3] 5,000 unit PO DAILY 10/30/13 [History] Multivitamin with Minerals [Multiple Vitamin] 1 tab PO DAILY 10/30/13 [History] Simvastatin [Zocor] 20 mg PO DAILY 10/30/13 [History] Aspirin [Adult Low Dose Aspirin EC] 81 mg PO DAILY 04/30/14 [History] FLUoxetine HCl [Fluoxetine HCl] 40 mg PO DAILY 12/06/17 [History] Vitamin E 400 unit PO DAILY 12/06/17 [History] Carbidopa/Levodopa [Carbidopa-Levodopa 25-100 Tab] 1 each PO TID 02/16/19 [History] Omeprazole 20 mg PO DAILY 02/16/19 [History] Denosumab [Prolia] 60 mg SUBCUT ASDIRECTED 08/23/19 [History] Forms: ED Department Discharge Referrals: Bharat Jamil MD [Primary Care Provider] - (Follow up in one week with Dr. Jamil. ) - Discharge Summary/Plan Comment DC Time >30 min.: No - General Info Date of Service: 10/10/19 Admission Dx/Problem (Free Text: Near Syncope Functional Status: Reports: Pain Controlled, Tolerating Diet, Ambulating - Review of Systems General: Reports: Weakness, Fatigue HEENT: Denies: Ear Pain, Sinus Congestion, Sore Throat Pulmonary: Denies: Shortness of Breath, Cough Cardiovascular: Denies: Chest Pain, Edema, Lightheadedness Gastrointestinal: Denies: Abdominal Pain, Nausea, Vomiting Genitourinary: Reports: No Symptoms Musculoskeletal: Reports: No Symptoms Skin: Reports: Other (abrasion right elbow) Neurological: Reports: Weakness Psychiatric: Reports: No Symptoms - Patient Data Vitals - Most Recent: Last Vital Signs Temp 96.9 F 10/10/19 12:00 Pulse 80 10/10/19 12:00 Resp 16 10/10/19 12:00 BP 133/74 10/10/19 12:00 Pulse Ox 97 10/10/19 12:00 Weight - Most Recent: 92 lb 6.4 oz Lab Results - Last 24 hrs: Laboratory Results - last 24 hr 10/09/19 10/09/19 10/10/19 Range/Units 20:10 22:00 07:00 WBC 5.0 (5.0-10.0) 10^3/uL RBC 4.34 (4.00-5.50) 10^6/uL Hgb 13.1 (12.0-16.0) g/dL Hct 39.7 (37.0-47.0) % MCV 91.5 (82.0-94.0) fL MCH 30.2 (27.0-32.0) pg MCHC 33.0 (33.0-38.0) g/dL RDW Coeff of Catrina 13.6 (11.0-15.0) % Plt Count 246 (150-400) 10^3/uL Neut % (Auto) 61.1 (35-85) % Lymph % (Auto) 27.0 (10-55) % [place] % (Auto) 10.3 (0-16) % Eos % (Auto) 1.4 (0-5) % Baso % (Auto) 0.2 (0-3) % Neut # (Auto) 3.03 (1.80-7.00) 10^3/uL Lymph # (Auto) 1.34 (1.00-4.80) 10^3/uL [place] # (Auto) 0.51 (0.00-0.80) 10^3/uL Eos # (Auto) 0.07 (0.00-0.45) 10^3/uL Baso # (Auto) 0.01 10^3/uL Sodium 139 (136-145) mEq/L Potassium 3.4 L (3.5-5.0) mEq/L Chloride 104 (98-106) mEq/L Carbon Dioxide 25 (21-32) mmol/L BUN 14 D (7-18) mg/dL Creatinine 0.7 (0.6-1.0) mg/dL Est Cr Clr Drug Dosing 46.79 mL/min Estimated GFR (MDRD) > 60 (>=60) mL/min Glucose 95 (75-99) mg/dL Calcium 8.6 (8.4-10.1) mg/dL Total Bilirubin 0.4 (0.0-1.0) mg/dL AST 14 L (15-37) U/L ALT 10 L (12-78) U/L Alkaline Phosphatase 59 (46-116) U/L Troponin I (0.00-0.06) ng/mL Total Protein 6.2 L (6.4-8.2) g/dL Albumin 3.5 (3.4-5.0) g/dL Urine Color Light yellow (YELLOW) Urine Appearance Clear (CLEAR) Urine pH 7.5 (4.5-8.0) Ur Specific [place] 1.015 (1.003-1.020) Urine Protein Negative (NEGATIVE) mg/dL Urine Glucose (UA) Negative (NEGATIVE) mg/dL Urine Ketones 80 H (NEGATIVE) mg/dL Urine Occult Blood Trace-lysed H (NEGATIVE) Urine Nitrite Negative (NEGATIVE) Urine Bilirubin Negative (NEGATIVE) Urine Urobilinogen 0.2 (0.2-1.0) EU/dL Ur Leukocyte Esterase Trace H (NEGATIVE) Urine RBC 0-5 (0-5) /HPF Urine WBC 0-5 (0-5) /HPF Ur Epithelial Cells Few H (NOT SEEN) /HPF 10/10/19 Range/Units 07:00 WBC (5.0-10.0) 10^3/uL RBC (4.00-5.50) 10^6/uL Hgb (12.0-16.0) g/dL Hct (37.0-47.0) % MCV (82.0-94.0) fL MCH (27.0-32.0) pg MCHC (33.0-38.0) g/dL RDW Coeff of Catrina (11.0-15.0) % Plt Count (150-400) 10^3/uL Neut % (Auto) (35-85) % Lymph % (Auto) (10-55) % [place] % (Auto) (0-16) % Eos % (Auto) (0-5) % Baso % (Auto) (0-3) % Neut # (Auto) (1.80-7.00) 10^3/uL Lymph # (Auto) (1.00-4.80) 10^3/uL [place] # (Auto) (0.00-0.80) 10^3/uL Eos # (Auto) (0.00-0.45) 10^3/uL Baso # (Auto) 10^3/uL Sodium 139 (136-145) mEq/L Potassium 3.9 (3.5-5.0) mEq/L Chloride 106 (98-106) mEq/L Carbon Dioxide 27 (21-32) mmol/L BUN 11 (7-18) mg/dL Creatinine 0.6 (0.6-1.0) mg/dL Est Cr Clr Drug Dosing 53.60 mL/min Estimated GFR (MDRD) > 60 (>=60) mL/min Glucose 89 (75-99) mg/dL Calcium 8.1 L (8.4-10.1) mg/dL Total Bilirubin (0.0-1.0) mg/dL AST (15-37) U/L ALT (12-78) U/L Alkaline Phosphatase (46-116) U/L Troponin I < 0.017 (0.00-0.06) ng/mL Total Protein (6.4-8.2) g/dL Albumin (3.4-5.0) g/dL Urine Color (YELLOW) Urine Appearance (CLEAR) Urine pH (4.5-8.0) Ur Specific [place] (1.003-1.020) Urine Protein (NEGATIVE) mg/dL Urine Glucose (UA) (NEGATIVE) mg/dL Urine Ketones (NEGATIVE) mg/dL Urine Occult Blood (NEGATIVE) Urine Nitrite (NEGATIVE) Urine Bilirubin (NEGATIVE) Urine Urobilinogen (0.2-1.0) EU/dL Ur Leukocyte Esterase (NEGATIVE) Urine RBC (0-5) /HPF Urine WBC (0-5) /HPF Ur Epithelial Cells (NOT SEEN) /HPF Med Orders - Current: Current Medications Discontinued Medications Acetaminophen (Tylenol) 650 mg PO Q4H PRN PRN Reason: Pain (Mild 1-3)/fever Aspirin (Halfprin) 81 mg PO DAILY [facility] Last Admin: 10/10/19 09:34 Dose: 81 mg Documented by: Carbidopa/Levodopa (Sinemet 25-100 Mg) 1 tab PO TID [facility] Last Admin: 10/10/19 13:51 Dose: 1 tab Documented by: Cholecalciferol (Vitamin D3) 125 mcg PO DAILY [facility] Last Admin: 10/10/19 09:34 Dose: 125 mcg Documented by: Fluoxetine 40 Mg Cap (Pt Own Med) 0 each PO DAILY [facility] Last Admin: 10/10/19 09:26 Dose: 1 each Documented by: Omeprazole 20 Mg (Pt Own Med) 0 mg PO ACBRK [facility] Last Admin: 10/10/19 09:26 Dose: 20 mg Documented by: Ondansetron HCl (Zofran Odt) 4 mg PO Q4H PRN PRN Reason: nausea, able to take PO Ondansetron HCl (Zofran) 4 mg IV Q4H PRN PRN Reason: Nausea/Vomiting Simvastatin (Zocor) 20 mg PO BEDTIME RADHA Sodium Chloride (Saline Flush) 10 ml FLUSH ASDIRECTED PRN PRN Reason: Keep Vein Open - Exam General: Reports: Alert, Oriented HEENT: Reports: Mucous Membr. Moist/[place] Neck: Reports: Supple Lungs: Reports: Clear to Auscultation, Normal Respiratory Effort Cardiovascular: Reports: Regular Rate, Regular Rhythm GI/Abdominal Exam: Normal Bowel Sounds, Soft, Non-Tender Extremities: Normal Inspection, No Pedal Edema Skin: Reports: Warm, Dry Wound/Incisions: Reports: No Drainage Neurological: Reports: No New Focal Deficit
== END 2019-10-10 15:29 | disposition home or self-care (01) ==
LOC: CC.ED 19:08 → CC.MS 20:59 → UNDOADMOB 21:00 → CC.MS 21:00 → CC.ED 21:00
PROVIDERS: ADMIT Physician Assistant Medical; ATTEND Family Medicine
DX: R55 Syncope and collapse (principal); E78.00 Pure hypercholesterolemia, unspecified; M54.2 Cervicalgia; Z79.82 Long term (current) use of aspirin; Z79.899 Other long term (current) drug therapy; W19.XXXA Unspecified fall, initial encounter
CPT/HCPCS: 36415; 70450; 72125; 80048; 80053; 81001; 84484; 85025; 93005; 93306; 93880; 97161-GP; 99217; 99220; 99285-25; A9270-GY; G0378

== ENCOUNTER 2020-04-03 16:35 | Observation (INO) | payer MEDICARE ==
[2020-04-03] MEDS ORDERED: Acetaminophen 500 MG Tab PO ONE (17:01)
[2020-04-03 17:31] LABS: PTT,PARTIAL THROMBOPLSTIN TIME 23.7 SEC (23.2-32.3)
[2020-04-03 17:37] LABS: CHLORIDE,CL 106 mEq/L (98-106); SODIUM,NA 145 mEq/L (136-145)
--- NOTE | 2020-04-03 18:03 | EDM.PDOC ---
ED HPI GENERAL MEDICAL PROBLEM - General Chief Complaint: General Stated Complaint: RUNNING PULSE/CHILLS/POST NASAL DRIP Time Seen by Provider: 04/03/20 17:20 Source of Information: Reports: Patient, RN History Limitations: Reports: No Limitations - History of Present Illness INITIAL COMMENTS - FREE TEXT/NARRATIVE: Pts states that she has had chills since Tuesday where she just can't warm up. Today she was more confused and he states that her pulse was rapid and bounding. Ambulance states that she was confused when they picked her up. No COVID exposure [place] aware [place] He noted that this afternoon she was shaky so brought her to ER. On admit her pulse was initially elevated as well as her fever. She was given tylenol and temp did come down as well as pulse and she became more alert and answered questions. She did states that she had some burning when urinating. Does not know when it started. No diarrhea but is concerned for constipation. Thinks she had a BM yesterday. No URI symptoms reported by . Onset: Gradual Duration: Getting Worse Location: Reports: Generalized - Related Data Allergies Allergy/AdvReac Type Severity Reaction Status Date / Time No Known Allergies Allergy Verified 04/03/20 17:59 Home Meds: Home Meds Cholecalciferol (Vitamin D3) [Vitamin D3] 5,000 unit PO DAILY 10/30/13 [History] Multivitamin with Minerals [Multiple Vitamin] 1 tab PO DAILY 10/30/13 [History] Simvastatin [Zocor] 20 mg PO DAILY 10/30/13 [History] Aspirin [Adult Low Dose Aspirin EC] 81 mg PO DAILY 04/30/14 [History] Carbidopa/Levodopa [Carbidopa-Levodopa 25-100 Tab] 1 each PO QID 02/16/19 [History] Omeprazole 20 mg PO DAILY 02/16/19 [History] Denosumab [Prolia] 60 mg SUBCUT ASDIRECTED 08/23/19 [History] Mirtazapine 15 mg PO BEDTIME 03/27/20 [History] Past Medical History HEENT History: Reports: Hard of Hearing Cardiovascular History: Reports: High Cholesterol Gastrointestinal History: Reports: Chronic Constipation, GERD, PUD Genitourinary History: Reports: Other (See Below) Other Genitourinary History: hematuria [employer] History: Reports: Musculoskeletal History: Reports: Arthritis, Osteoporosis Neurological History: Reports: Parkinson's Psychiatric History: Reports: Depression Endocrine/Metabolic History: Reports: Vitamin D Deficiency Hematologic History: Reports: Iron Deficiency - Past Surgical History HEENT Surgical History: Reports: None Other HEENT Surgeries/Procedures: lens replaced Cardiovascular Surgical History: Reports: None GI Surgical History: Reports: Appendectomy Female Surgical History: Reports: Tubal Ligation Endocrine Surgical History: Reports: None Neurological Surgical History: Reports: None Musculoskeletal Surgical History: Reports: None Social & Family History - Family History Family Medical History: No Pertinent Family History - Tobacco Use Tobacco Use Status *Q: Never Tobacco User Second Hand Smoke Exposure: No - Caffeine Use Caffeine Use: Reports: None - Living Situation & Occupation Living situation: Reports: , with Spouse Occupation: Employed ED ROS GENERAL - Review of Systems Review Of Systems: See Below Constitutional: Reports: Fever, Chills, Weakness HEENT: Reports: No Symptoms Respiratory: Reports: No Symptoms Cardiovascular: Reports: No Symptoms GI/Abdominal: Reports: Constipation. Denies: Diarrhea : Reports: Dysuria, Incontinence. Denies: Frequency Musculoskeletal: Reports: No Symptoms Skin: Reports: No Symptoms Neurological: Reports: Confusion, Weakness Psychiatric: Reports: No Symptoms ED EXAM, GENERAL - Physical Exam Exam: See Below Exam Limited By: No Limitations General Appearance: Alert, WD/WN, No Apparent Distress Ears: Normal External Exam, Normal Canal, Normal TMs Nose: Normal Inspection Throat/Mouth: Normal Inspection, Normal Oropharynx Head: Atraumatic, Normocephalic Neck: Normal Inspection, Supple, Non-Tender, Full Range of Motion Respiratory/Chest: No Respiratory Distress, Lungs Clear, Normal Breath Sounds Cardiovascular: Normal Peripheral Pulses, Regular Rate, Rhythm, No Edema GI/Abdominal: Normal Bowel Sounds, Soft, Non-Tender Back Exam: Normal Inspection, Full Range of Motion Extremities: Normal Inspection, Normal Range of Motion Neurological: Alert, Oriented Skin Exam: Warm, Dry, Intact Course - Vital Signs Last Recorded V/S: Last Vital Signs Temp 102 F H 04/03/20 17:15 Pulse 86 04/03/20 17:12 Resp 18 04/03/20 17:12 BP 154/84 H 04/03/20 17:12 Pulse Ox - Orders/Labs/Meds Orders: Active Orders 24 hr Category Date Time Status Chest 1V Frontal [CR] Stat Exams 04/03/20 17:02 Ordered CULTURE BLOOD [BC] Stat Lab 04/03/20 17:34 Received CULTURE BLOOD [BC] Stat Lab 04/03/20 17:34 Received CULTURE URINE [RM] Stat Lab 04/03/20 17:41 Received Blood Culture x2 Reflex Set [OM.PC] Stat Oth 04/03/20 17:29 Ordered Labs: Laboratory Tests 04/03/20 04/03/20 04/03/20 Range/Units 17:02 17:02 17:02 WBC 6.0 (5.0-10.0) 10^3/uL RBC 4.69 (4.00-5.50) 10^6/uL Hgb 13.9 (12.0-16.0) g/dL Hct 41.6 (37.0-47.0) % MCV 88.7 (82.0-94.0) fL MCH 29.6 (27.0-32.0) pg MCHC 33.4 (33.0-38.0) g/dL RDW Coeff of Catrina 13.7 (11.0-15.0) % Plt Count 282 (150-400) 10^3/uL Neut % (Auto) 43.7 (35-85) % Lymph % (Auto) 44.4 (10-55) % [place] % (Auto) 9.8 (0-16) % Eos % (Auto) 1.8 (0-5) % Baso % (Auto) 0.3 (0-3) % Neut # (Auto) 2.61 (1.80-7.00) 10^3/uL Lymph # (Auto) 2.66 (1.00-4.80) 10^3/uL [place] # (Auto) 0.59 (0.00-0.80) 10^3/uL Eos # (Auto) 0.11 (0.00-0.45) 10^3/uL Baso # (Auto) 0.02 10^3/uL PT 11.7 (9.7-12.3) SEC INR 1.16 (0.92-1.18) APTT 23.7 (23.2-32.3) SEC D-Dimer, Quantitative 0.44 (0.00-0.50) Sodium (136-145) mEq/L Potassium (3.5-5.0) mEq/L Chloride (98-106) mEq/L Carbon Dioxide (21-32) mmol/L BUN (7-18) mg/dL Creatinine (0.6-1.0) mg/dL Est Cr Clr Drug Dosing mL/min Estimated GFR (MDRD) (>=60) mL/min Glucose (75-99) mg/dL Lactic Acid (0.4-2.0) mmol/L Calcium (8.4-10.1) mg/dL Total Bilirubin (0.0-1.0) mg/dL AST (15-37) U/L ALT (12-78) U/L Alkaline Phosphatase (46-116) U/L Troponin I (0.00-0.06) ng/mL NT-Pro-B Natriuret Pep (0-1000) pg/mL Total Protein (6.4-8.2) g/dL Albumin (3.4-5.0) g/dL Urine Color (YELLOW) Urine Appearance (CLEAR) Urine pH (4.5-8.0) Ur Specific [place] (1.003-1.020) Urine Protein (NEGATIVE) mg/dL Urine Glucose (UA) (NEGATIVE) mg/dL Urine Ketones (NEGATIVE) mg/dL Urine Occult Blood (NEGATIVE) Urine Nitrite (NEGATIVE) Urine Bilirubin (NEGATIVE) Urine Urobilinogen (0.2-1.0) EU/dL Ur Leukocyte Esterase (NEGATIVE) Urine RBC (0-5) /HPF Urine WBC (0-5) /HPF Urine WBC Clumps (NOT SEEN) /HPF Ur Epithelial Cells (NOT SEEN) /HPF Urine Bacteria (NOT SEEN) /HPF Urinalysis Comment SARS CoV-2 RNA Rapid [place]GET[place] Negative (NEGATIVE) 04/03/20 04/03/20 04/03/20 Range/Units 17:02 17:02 17:41 WBC (5.0-10.0) 10^3/uL RBC (4.00-5.50) 10^6/uL Hgb (12.0-16.0) g/dL Hct (37.0-47.0) % MCV (82.0-94.0) fL MCH (27.0-32.0) pg MCHC (33.0-38.0) g/dL RDW Coeff of [place] (11.0-15.0) % Plt Count (150-400) 10^3/uL Neut % (Auto) (35-85) % Lymph % (Auto) (10-55) % [place] % (Auto) (0-16) % Eos % (Auto) (0-5) % Baso % (Auto) (0-3) % Neut # (Auto) (1.80-7.00) 10^3/uL Lymph # (Auto) (1.00-4.80) 10^3/uL [place] # (Auto) (0.00-0.80) 10^3/uL Eos # (Auto) (0.00-0.45) 10^3/uL Baso # (Auto) 10^3/uL PT (9.7-12.3) SEC INR (0.92-1.18) APTT (23.2-32.3) SEC D-Dimer, Quantitative (0.00-0.50) Sodium 145 (136-145) mEq/L Potassium 3.0 L D (3.5-5.0) mEq/L Chloride 106 (98-106) mEq/L Carbon Dioxide 24 (21-32) mmol/L BUN 21 H (7-18) mg/dL Creatinine 0.8 (0.6-1.0) mg/dL Est Cr Clr Drug Dosing 48.06 mL/min Estimated GFR (MDRD) > 60 (>=60) mL/min Glucose 90 (75-99) mg/dL Lactic Acid 1.9 (0.4-2.0) mmol/L Calcium 9.2 (8.4-10.1) mg/dL Total Bilirubin 0.7 (0.0-1.0) mg/dL AST 17 (15-37) U/L ALT 12 (12-78) U/L Alkaline Phosphatase 67 (46-116) U/L Troponin I < 0.017 (0.00-0.06) ng/mL NT-Pro-B Natriuret Pep 31 (0-1000) pg/mL Total Protein 6.9 (6.4-8.2) g/dL Albumin 4.1 (3.4-5.0) g/dL Urine Color Yellow (YELLOW) Urine Appearance Clear (CLEAR) Urine pH 6.5 (4.5-8.0) Ur Specific [place] 1.020 (1.003-1.020) Urine Protein Negative (NEGATIVE) mg/dL Urine Glucose (UA) Negative (NEGATIVE) mg/dL Urine Ketones 40 H (NEGATIVE) mg/dL Urine Occult Blood Trace-intact H (NEGATIVE) Urine Nitrite Negative (NEGATIVE) Urine Bilirubin Negative (NEGATIVE) Urine Urobilinogen 0.2 (0.2-1.0) EU/dL Ur Leukocyte Esterase Moderate H (NEGATIVE) Urine RBC 5-10 H (0-5) /HPF Urine WBC 50-75 H (0-5) /HPF Urine WBC Clumps Few H (NOT SEEN) /HPF Ur Epithelial Cells Few H (NOT SEEN) /HPF Urine Bacteria Moderate H (NOT SEEN) /HPF Urinalysis Comment SARS CoV-2 RNA Rapid GE[place]GETTE (NEGATIVE) Meds: Medications Discontinued Medications Generic Name Dose Route Start Last Admin Trade Name Freq PRN Reason Stop Dose Admin Acetaminophen 1,000 mg 04/03/20 17:01 04/03/20 17:15 Tylenol Extra Strength PO 04/03/20 17:02 1,000 mg ONETIME ONE Administration - Re-Assessments/Exams Free Text/Narrative Re-Assessment/Exam: 04/03/20 18:[address] Jamil and he agrees with admit. Will admit observation with IV antibiotics and potassium replacement. and pt are in agreement. Departure - Departure Time of Disposition: 18:06 Disposition: Refer to Observation Condition: Fair Clinical Impression: Fever of undetermined origin, UTI, Urinary tract infectious disease - Discharge Information *PRESCRIPTION DRUG MONITORING PROGRAM REVIEWED*: Not Applicable *COPY OF PRESCRIPTION DRUG MONITORING REPORT IN PATIENT FLO: Not Applicable Sepsis Event Note (ED) - Evaluation Sepsis Screening Result: No Definite Risk - Focused Exam Vital Signs: Vital Signs Temp Temp Pulse Resp BP 04/03/20 17:15 102 F H 04/03/20 17:12 102 F H 86 18 154/84 H - Problem List & Annotations (1) Fever of undetermined origin SNOMED Code(s): 9820526 Code(s): R50.9 - FEVER, UNSPECIFIED Status: Acute Priority: High (2) UTI, Urinary tract infectious disease SNOMED Code(s): 13780951 Code(s): N39.0 - URINARY TRACT INFECTION, SITE NOT SPECIFIED Status: Acute Priority: High - Problem List Review Problem List Initiated/Reviewed/Updated: Yes - My Orders Last 24 Hours: My Active Orders 04/03/20 17:02 Chest 1V Frontal [CR] Stat 04/03/20 17:29 Blood Culture x2 Reflex Set [OM.PC] Stat 04/03/20 17:34 CULTURE BLOOD [BC] Stat CULTURE BLOOD [BC] Stat 04/03/20 17:41 CULTURE URINE [RM] Stat - Assessment/Plan Admission H&P: Please use this note as an admission H&P Last 24 Hours: My Active Orders 04/03/20 17:02 Chest 1V Frontal [CR] Stat 04/03/20 17:29 Blood Culture x2 Reflex Set [OM.PC] Stat 04/03/20 17:34 CULTURE BLOOD [BC] Stat CULTURE BLOOD [BC] Stat 04/03/20 17:41 CULTURE URINE [RM] Stat Plan: Admit to observation with IV antibiotics and K+ replacement. will repeat labs in the AM.
[2020-04-03] MEDS ORDERED: Sodium Chloride 0.9% 10 ML Syringe FLUSH PRN (18:41)
[2020-04-03] MEDS ORDERED: Acetaminophen 325 MG Tab PO PRN (18:41)
[2020-04-03] MEDS ORDERED: Potassium Chloride 20 MEQ in Premix Bag 1 BAG IV ONE (19:28)
[2020-04-03] MEDS: MIRTAZAPINE 15 MG PO SCH (19:54)
[2020-04-03] MEDS: LEVODOPA PO SCH (19:55)
[2020-04-03] MEDS: CARBIDOPA PO SCH (19:55)
[2020-04-03] MEDS: cefTRIAXone 1 GM Vial IVPUSH SCH (19:56)
[2020-04-03] MEDS: Pantoprazole 40 MG Vial IVPUSH SCH (20:03)
[2020-04-03] MEDS: Enoxaparin 40 MG/0.4 ML Syringe SUBCUT SCH (20:03)
[2020-04-03] MEDS ORDERED: Sodium Chloride 0.9% 250 ML IV SCH (20:15)
[2020-04-04] MEDS: LEVODOPA PO SCH ×4 (06:13→19:36)
[2020-04-04] MEDS: CARBIDOPA PO SCH ×4 (06:13→19:36)
[2020-04-04 07:22] LABS: CHLORIDE,CL 108 mEq/L (98-106); SODIUM,NA 145 mEq/L (136-145)
[2020-04-04] MEDS: Aspirin 81 MG Tab.EC PO SCH (07:58)
[2020-04-04] MEDS: Pantoprazole 40 MG Vial IVPUSH SCH ×2 (07:58→19:29)
[2020-04-04] MEDS: Simvastatin 20 MG Tab ** OWN MED PO SCH (07:58)
[2020-04-04] MEDS ORDERED: Omeprazole [Omeprazole] 20 MG PO SCH (08:00)
[2020-04-04] MEDS: Cholecalciferol (Vitamin D3) 25 MCG Tab PO SCH (08:13)
--- NOTE | 2020-04-04 10:46 | PN ---
DATE: 04/04/2020 S: Mrs. Pierre was admitted yesterday by Kiara Cason for fever. She came in with tachycardia that her found at home. She had not really been feeling bad other than the fact that she had an elevated temp. She denied that she had any cough or abdominal pain. She is confused with Parkinson's dementia, but she denied any urinary complaints. Kiara Cason did appropriate workup in the emergency room and admitted her for fever, started her on Rocephin. The patient is feeling fine since being here. She has been on some IV fluids and this morning once again denies any complaints. O: HEENT: Today is grossly benign. NECK: Supple. Veins are flat. LUNGS: Sounds appear clear throughout. CARDIAC: Tones are regular. ABDOMEN: She has no flank pain or abdominal pain to palpation. EXTREMITIES: No peripheral edema. Chest x-ray is reviewed and appears clear. Lab work is reviewed from admission. This patient's potassium was down at 3 and her urine looks like it was positive and culture is pending. ASSESSMENT: 1. FEVER SECONDARY TO URINARY TRACT INFECTION. 2. HYPOKALEMIA. 3. ADVANCED PARKINSON'S WITH DEMENTIA. P: We will continue with IV Rocephin for now. She has been getting IV potassium replacement. Her potassium is back into the normal range. No magnesium was done on admit and I will order one today. Her white count is normal. If she is doing well, hopefully home tomorrow. ASADP/MODL /[id number]
[2020-04-04] MEDS: cefTRIAXone 1 GM Vial IVPUSH SCH (19:22)
[2020-04-04] MEDS: Enoxaparin 40 MG/0.4 ML Syringe SUBCUT SCH (19:35)
[2020-04-04] MEDS: MIRTAZAPINE 15 MG PO SCH (19:36)
[2020-04-04] MEDS ORDERED: ALPRAZolam 0.25 MG Tab PO ONE (20:58)
[2020-04-05] MEDS: LEVODOPA PO SCH ×3 (07:38→11:32)
[2020-04-05] MEDS: CARBIDOPA PO SCH ×3 (07:38→11:32)
[2020-04-05] MEDS: Pantoprazole 40 MG Vial IVPUSH SCH ×2 (07:38→07:47)
[2020-04-05] MEDS: Cholecalciferol (Vitamin D3) 25 MCG Tab PO SCH ×2 (07:39→09:46)
[2020-04-05] MEDS: Simvastatin 20 MG Tab ** OWN MED PO SCH ×2 (07:39→09:46)
[2020-04-05] MEDS: Aspirin 81 MG Tab.EC PO SCH ×2 (07:39→09:46)
[2020-04-05] MEDS ORDERED: Pantoprazole 40 MG Tab.CR PO STA (09:11)
[2020-04-05 12:45] VITALS: BP 118/53; PULSE 66
[2020-04-05] MEDS ORDERED: Cefuroxime 250 MG Tab PO ONE (13:13)
--- NOTE | 2020-04-05 13:28 | PCM.DCSUM1 ---
Discharge Summary - Hospital Course Free Text/Narrative:: Marielle presented to ER with increased confusion and increased heart rate. Noticed "shaking by ". History of dementia. Did have fever on arrival to ER, was given Tylenol with good response for fever. As fever dropped so did heart rate. Did have burning with urination. No diarrhea, possibly constipated. No covid exposure. No shortness of breath, cough or chest discomfort. Labs done. Normal WBC, CRP negative. Potassium slightly low at 3.0. UA positive for leukocytes and WBC clumps. Culture ordered. Admitted and started on IV fluids, IV Rocephin. Diagnosis: Stroke: No Modified [place] Scale: No Symptoms at All Modified [place] Scale Score: 0 - Discharge Data Discharge Date: 04/05/20 Discharge Disposition: Home, W Home Health Agency 06 Condition: Fair - Referral to Home Health Date of Face to Face Encounter: 04/05/20 Reason for Homebound Status: Unable to drive due to confusion Primary Care Physician: Bharat Jamil MD Skilled Need: Monitor mental status, ability to care for self, ADLS. PT/OT to follow for strengthening, home safety. adaptations to home as needed - Discharge Diagnosis/Problem(s) (1) Fever of undetermined origin SNOMED Code(s): 6282132 ICD Code: R50.9 - FEVER, UNSPECIFIED Status: Acute Priority: High Current Visit: Yes (2) UTI, Urinary tract infectious disease SNOMED Code(s): 96533630 ICD Code: N39.0 - URINARY TRACT INFECTION, SITE NOT SPECIFIED Status: Acute Priority: High Current Visit: Yes - Patient Summary/Data Complications: none Consults: Consultations 04/03/20 18:41 PT Evaluation and Treatment [CONS] Routine Hospital Course: Patient is doing well. Returned back now to her usual state at home per . Is restless at present. This am was very lethargic due to being given Xanax last evening for agitation. Did not eat breakfast or take her meds. Now has been up ambulating, took a shower, ate lunch. She denies any pain. No nausea or vomiting. No abdominal discomfort. Did have fever at 102 on admit to ER, now afebrile. Labs stable. WBC 3.3. CRP negative. Potassium has returned to normal now at 3.6. Urine culture contaminated. Due to WBC clumps however in urine, will discharge home on Ceftin. Follow up in [address] Jamil - Patient Instructions Diet: Usual Diet as Tolerated Activity: As Tolerated - Discharge Plan *PRESCRIPTION DRUG MONITORING PROGRAM REVIEWED*: Not Applicable *COPY OF PRESCRIPTION DRUG MONITORING REPORT IN PATIENT FLO: Not Applicable Prescriptions/Med Rec: Cefuroxime [Ceftin] 250 mg PO BID #14 tab Home Medications: Home Meds Cholecalciferol (Vitamin D3) [Vitamin D3] 5,000 unit PO DAILY 10/30/13 [History] Multivitamin with Minerals [Multiple Vitamin] 1 tab PO DAILY 10/30/13 [History] Simvastatin [Zocor] 20 mg PO DAILY 10/30/13 [History] Aspirin [Adult Low Dose Aspirin EC] 81 mg PO DAILY 04/30/14 [History] Carbidopa/Levodopa [Carbidopa-Levodopa 25-100 Tab] 1 each PO QID 02/16/19 [History] Omeprazole 20 mg PO DAILY 02/16/19 [History] Denosumab [Prolia] 60 mg SUBCUT ASDIRECTED 08/23/19 [History] Mirtazapine 15 mg PO BEDTIME 03/27/20 [History] Cefuroxime [Ceftin] 250 mg PO BID #14 tab 04/05/20 [Rx] Patient Handouts: Fever, Adult, Urinary Tract Infection, Adult, [id number] Forms: ED Department Discharge Referrals: Bharat Jamil MD [Primary Care Provider] - (Hospital follow up in [address] Jamil ) - Discharge Summary/Plan Comment DC Time >30 min.: No - General Info Date of Service: 04/05/20 Admission Dx/Problem (Free Text: Fever UTI Functional Status: Reports: Pain Controlled, Tolerating Diet, Ambulating - Review of Systems General: Reports: Weakness. Denies: Fever, Fatigue, Malaise, Chills HEENT: Reports: No Symptoms Pulmonary: Denies: Shortness of Breath, Cough Cardiovascular: Denies: Chest Pain, Lightheadedness Gastrointestinal: Denies: Abdominal Pain, Nausea, Vomiting Genitourinary: Reports: No Symptoms Musculoskeletal: Reports: No Symptoms Skin: Reports: No Symptoms Neurological: Reports: Confusion - Patient Data Vitals - Most Recent: Last Vital Signs Temp 98.2 F 04/05/20 12:00 Pulse 66 04/05/20 12:00 Resp 18 04/05/20 12:00 BP 118/53 L 04/05/20 12:00 Pulse Ox 97 04/05/20 12:00 Weight - Most Recent: 120 lb 6.4 oz OVIDIO Results - Last 24 hrs: Microbiology 04/03/20 17:41 Urine Culture - Final Urine, Voided 04/03/20 17:34 Aerobic Blood Culture - Preliminary Blood - Venous - Lab Draw NO GROWTH AFTER 1 DAY Anaerobic Blood Culture - Preliminary NO GROWTH AFTER 1 DAY 04/03/20 17:34 Aerobic Blood Culture - Preliminary Blood - Venous NO GROWTH AFTER 1 DAY Anaerobic Blood Culture - Preliminary NO GROWTH AFTER 1 DAY Med Orders - Current: Current Medications Acetaminophen (Tylenol) 650 mg PO Q4H PRN PRN Reason: Pain (Mild 1-3)/fever Aspirin (Halfprin) 81 mg PO DAILY [facility] Last Admin: 04/05/20 09:46 Dose: Not Given Documented by: Carbidopa/Levodopa (Sinemet 25-100 Mg) 1 tab PO 0700,1100,1500,1900 [facility] Last Admin: 04/05/20 11:32 Dose: 1 tab Documented by: Ceftriaxone Sodium (Rocephin) 1 gm IVPUSH BEDTIME [facility] Last Admin: 04/04/20 19:22 Dose: 1 gm Documented by: Cholecalciferol (Vitamin D3) 125 mcg PO DAILY [facility] Last Admin: 04/05/20 09:46 Dose: Not Given Documented by: Enoxaparin Sodium (Lovenox) 40 mg SUBCUT BEDTIME [facility] Last Admin: 04/04/20 19:35 Dose: 40 mg Documented by: Mirtazapine (Remeron) 15 mg PO BEDTIME [facility] Last Admin: 04/04/20 19:36 Dose: 15 mg Documented by: Omeprazole [ (Omeprazole] 20 Mg) 20 mg PO DAILY [facility] Pantoprazole Sodium (Protonix Iv) 40 mg IVPUSH Q12H [facility] Last Admin: 04/05/20 07:47 Dose: Not Given Documented by: Simvastatin (Zocor) 20 mg PO DAILY [facility] Last Admin: 04/05/20 09:46 Dose: Not Given Documented by: Sodium Chloride (Saline Flush) 10 ml FLUSH ASDIRECTED PRN PRN Reason: Keep Vein Open Discontinued Medications Acetaminophen (Tylenol Extra Strength) 1,000 mg PO ONETIME ONE Stop: 04/03/20 17:02 Last Admin: 04/03/20 17:15 Dose: 1,000 mg Documented by: Alprazolam (Xanax) 0.25 mg PO NOW ONE Stop: 04/04/20 20:59 Last Admin: 04/04/20 21:09 Dose: 0.25 mg Documented by: Cefuroxime Axetil (Ceftin) 250 mg PO NOW ONE Stop: 04/05/20 13:14 Potassium Chloride 20 meq/ (Premix) 100 mls @ 25 mls/hr IV ONETIME ONE Stop: 04/03/20 23:27 Last Admin: 04/03/20 20:47 Dose: 25 mls/hr Documented by: Sodium Chloride (Normal Saline) 250 mls @ 62.5 mls/hr IV ASDIRECTED RADHA Stop: 04/04/20 00:30 Last Admin: 04/03/20 20:45 Dose: 62.5 mls/hr Documented by: Pantoprazole Sodium (Protonix) 40 mg PO STAT STA Stop: 04/05/20 09:12 Last Admin: 04/05/20 11:20 Dose: Not Given Documented by: - Exam General: Reports: Alert, Oriented (person only), Cooperative HEENT: Reports: Mucous Membr. Moist/[place] Neck: Reports: Supple Lungs: Reports: Clear to Auscultation, Normal Respiratory Effort Cardiovascular: Reports: Regular Rate, Regular Rhythm GI/Abdominal Exam: Normal Bowel Sounds, Soft, Non-Tender Extremities: Normal Inspection, No Pedal Edema Skin: Reports: Warm, Dry Neurological: Reports: No New Focal Deficit
== END 2020-04-05 14:03 | disposition home health service (06) ==
LOC: CC.ED 16:35 → UNDOADMOB 18:20 → CC.MS 18:20 → INTOOBSV 18:20 → OBSVTOIN 18:20 → CC.MS 18:22
PROVIDERS: ADMIT Physician Assistant Medical; ATTEND Family Medicine
DX: R50.9 Fever, unspecified (principal); N39.0 Urinary tract infection, site not specified; J43.9 Emphysema, unspecified; D72.829 Elevated white blood cell count, unspecified; E78.00 Pure hypercholesterolemia, unspecified; K21.9 Gastro-esophageal reflux disease without esophagitis; K59.09 Other constipation; K44.9 Diaphragmatic hernia without obstruction or gangrene; Z20.822 Contact with and (suspected) exposure to COVID-19; M19.011 Primary osteoarthritis, right shoulder; M19.012 Primary osteoarthritis, left shoulder; G20 Parkinson's disease; F02.80 Dementia in other diseases classified elsewhere, unspecified severity, without behavioral disturbance, psychotic disturbance, mood disturbance, and anxiety; E87.6 Hypokalemia; Z79.82 Long term (current) use of aspirin; Z79.899 Other long term (current) drug therapy; Z98.890 Other specified postprocedural states
CPT/HCPCS: 36415; 71045; 80048; 80053; 81001; 83605; 83735; 83880; 84484; 85025; 85379; 85610; 85730; 86140; 87040; 87086; 93005; 93010; 96372; 96374; 96375; 96376; 97161-GP; 99217; 99220; 99225; 99285-25; A9270-GY; C9113; G0378; J0696; J1650; J3480; J7050; U0002

== ENCOUNTER 2020-04-25 14:33 | Emergency (ER) | payer MEDICARE ==
[2020-04-25 14:49] VITALS: PULSE 84
[2020-04-25 15:25] LABS: CHLORIDE,CL 106 mEq/L (98-106); SODIUM,NA 148 mEq/L (136-145)
[2020-04-25 15:31] VITALS: BP 138/71
[2020-04-25] MEDS: Potassium Chloride 20 MEQ in Premix Bag 1 BAG IV ONE (15:55)
[2020-04-25] MEDS: Sodium Chloride 0.9% 1,000 ML IV ONE (15:55)
--- NOTE | 2020-04-25 16:32 | EDM.PDOC ---
ED HPI GENERAL MEDICAL PROBLEM - General Chief Complaint: General Stated Complaint: ABD PAIN Time Seen by Provider: 04/25/20 15:15 Source of Information: Reports: Patient, Family History Limitations: Reports: Altered Mental Status (dementia) - History of Present Illness INITIAL COMMENTS - FREE TEXT/NARRATIVE: Marielle is a 74 yo female who presents to the ED via EMS with a 1.5 day history of diarrhea, although she reports to nursing staff she has had diarrhea for the past week. She reports she is weak. She denies any abdominal pain to myself, but reports LLQ abdominal pain to nurse. She does have dementia and is a poor historian. Has had a decreased appetite and admits she hasn't been drinking as much as she should. reports he also has had diarrhea, worse than she has. Do not believe they have eaten anything abnormal. No recent travel. No blood in stool or black stools. She denies any dizziness, headache, body aches, chest pain, shortness of breath. Has been somewhat nauseated and has decreased appetite. Location: Reports: Abdomen Associated Symptoms: Reports: Confusion (baseline), Loss of Appetite, Nausea /Vomiting, Weakness. Denies: Chest Pain, Cough, cough w sputum, Diaphoresis, Fever/Chills, Headaches, Malaise, Rash, Seizure, Shortness of Breath, Syncope Lower Abdomen Pain Score (Numeric/FACES): 5 - Related Data Allergies Allergy/AdvReac Type Severity Reaction Status Date / Time No Known Allergies Allergy Verified 04/03/20 17:59 Home Meds: Home Meds Cholecalciferol (Vitamin D3) [Vitamin D3] 5,000 unit PO DAILY 10/30/13 [History] Multivitamin with Minerals [Multiple Vitamin] 1 tab PO DAILY 10/30/13 [History] Simvastatin [Zocor] 20 mg PO DAILY 10/30/13 [History] Aspirin [Adult Low Dose Aspirin EC] 81 mg PO DAILY 04/30/14 [History] Carbidopa/Levodopa [Carbidopa-Levodopa 25-100 Tab] 1 each PO QID 02/16/19 [History] Omeprazole 20 mg PO DAILY 02/16/19 [History] Denosumab [Prolia] 60 mg SUBCUT ASDIRECTED 08/23/19 [History] Mirtazapine 15 mg PO BEDTIME 03/27/20 [History] Potassium Chloride 40 meq PO DAILY #14 tablet.er 04/25/20 [Rx] Past Medical History HEENT History: Reports: Hard of Hearing Cardiovascular History: Reports: High Cholesterol Gastrointestinal History: Reports: Chronic Constipation, GERD, PUD Genitourinary History: Reports: Other (See Below) Other Genitourinary History: hematuria [employer] History: Reports: Musculoskeletal History: Reports: Arthritis, Osteoporosis Neurological History: Reports: Parkinson's Psychiatric History: Reports: Depression Endocrine/Metabolic History: Reports: Vitamin D Deficiency Hematologic History: Reports: Iron Deficiency - Past Surgical History HEENT Surgical History: Reports: None Other HEENT Surgeries/Procedures: lens replaced Cardiovascular Surgical History: Reports: None GI Surgical History: Reports: Appendectomy Female Surgical History: Reports: Tubal Ligation Endocrine Surgical History: Reports: None Neurological Surgical History: Reports: None Musculoskeletal Surgical History: Reports: None Social & Family History - Family History Family Medical History: No Pertinent Family History - Tobacco Use Tobacco Use Status *Q: Never Tobacco User Second Hand Smoke Exposure: No - Caffeine Use Caffeine Use: Reports: None - Recreational Drug Use Recreational Drug Use: No - Living Situation & Occupation Living situation: Reports: , with Spouse Occupation: Employed ED ROS GENERAL - Review of Systems Review Of Systems: Comprehensive ROS is negative, except as noted in HPI. (poor historian, assisted with ROS) ED EXAM, GENERAL - Physical Exam Exam: See Below Exam Limited By: Altered Mental Status (dementia, baseline) General Appearance: Alert, WD/WN, No Apparent Distress Eye Exam: Bilateral Eye: EOMI, PERRL Throat/Mouth: Normal Inspection, Normal Lips, Normal Teeth, Normal Gums, Normal Oropharynx, Normal Voice, No Airway Compromise Head: Atraumatic, Normocephalic Neck: Normal Inspection, Supple, Non-Tender, Full Range of Motion Respiratory/Chest: No Respiratory Distress, Lungs Clear, Normal Breath Sounds, No Accessory Muscle Use, Chest Non-Tender Cardiovascular: Normal Peripheral Pulses, Regular Rate, Rhythm, No Edema, No Gallop, No JVD, No Murmur, No Rub GI/Abdominal: Normal Bowel Sounds, Soft, Non-Tender, No Organomegaly, No Distention, No Abnormal Bruit, No Mass Extremities: Normal Inspection, Normal Range of Motion, Non-Tender, Normal Capillary Refill, No Pedal Edema Neurological: Alert, Oriented, Normal Gait, No Motor/Sensory Deficits Psychiatric: Normal Affect, Normal Mood Skin Exam: Warm, Dry, Intact, Normal Color, No Rash Lymphatic: No Adenopathy Course - Vital Signs Last Recorded V/S: Last Vital Signs Temp 98.4 F 04/25/20 14:48 Pulse 84 04/25/20 14:48 Resp 20 04/25/20 14:48 BP 138/71 04/25/20 15:31 Pulse Ox 97 04/25/20 14:48 - Orders/Labs/Meds Labs: Laboratory Tests 04/25/20 04/25/20 Range/Units 15:09 15:09 WBC 4.8 L (5.0-10.0) 10^3/uL RBC 4.40 (4.00-5.50) 10^6/uL Hgb 13.1 (12.0-16.0) g/dL Hct 39.0 (37.0-47.0) % MCV 88.6 (82.0-94.0) fL MCH 29.8 (27.0-32.0) pg MCHC 33.6 (33.0-38.0) g/dL RDW Coeff of Catrina 13.6 (11.0-15.0) % Plt Count 269 (150-400) 10^3/uL Neut % (Auto) 55.9 (35-85) % Lymph % (Auto) 31.3 (10-55) % [place] % (Auto) 11.4 (0-16) % Eos % (Auto) 1.2 (0-5) % Baso % (Auto) 0.2 (0-3) % Neut # (Auto) 2.70 (1.80-7.00) 10^3/uL Lymph # (Auto) 1.51 (1.00-4.80) 10^3/uL [place] # (Auto) 0.55 (0.00-0.80) 10^3/uL Eos # (Auto) 0.06 (0.00-0.45) 10^3/uL Baso # (Auto) 0.01 10^3/uL Sodium 148 H (136-145) mEq/L Potassium 2.9 L* (3.5-5.0) mEq/L Chloride 106 (98-106) mEq/L Carbon Dioxide 26 (21-32) mmol/L BUN 17 (7-18) mg/dL Creatinine 0.9 (0.6-1.0) mg/dL Est Cr Clr Drug Dosing 42.72 mL/min Estimated GFR (MDRD) > 60 (>=60) mL/min Glucose 87 (75-99) mg/dL Calcium 9.4 (8.4-10.1) mg/dL Total Bilirubin 0.5 (0.0-1.0) mg/dL AST 15 (15-37) U/L ALT 17 (12-78) U/L Alkaline Phosphatase 56 (46-116) U/L C-Reactive Protein < 0.2 L (0.2-0.8) mg/dL Total Protein 6.6 (6.4-8.2) g/dL Albumin 3.8 (3.4-5.0) g/dL Amylase 48 (25-115) U/L Lipase 69 L (73-393) U/L Meds: Medications Discontinued Medications Generic Name Dose Route Start Last Admin Trade Name Freq PRN Reason Stop Dose Admin Sodium Chloride 1,000 mls @ 999 mls/hr 04/25/20 15:44 04/25/20 15:55 Normal Saline IV 04/25/20 16:44 999 mls/hr .BOLUS ONE Administration Potassium Chloride 20 meq/ 100 mls @ 25 mls/hr 04/25/20 15:45 04/25/20 15:55 Premix IV 04/25/20 19:44 25 mls/hr ONETIME ONE Administration Sodium Chloride 250 mls @ 100 mls/hr 04/25/20 18:45 04/25/20 18:48 Normal Saline IV 100 mls/hr ASDIRECTED RADHA Administration Departure - Departure Time of Disposition: 16:35 Disposition: Home, Self-Care 01 Condition: Fair Clinical Impression: Viral gastroenteritis, Diarrhea - Discharge Information *PRESCRIPTION DRUG MONITORING PROGRAM REVIEWED*: Not Applicable *COPY OF PRESCRIPTION DRUG MONITORING REPORT IN PATIENT FLO: Not Applicable Prescriptions: Potassium Chloride 40 meq PO DAILY #14 tablet.er Instructions: Viral Gastroenteritis, Adult, [id number], Food Choices to Help Relieve Diarrhea, Adult, Diarrhea, Adult, [id number] Referrals: Bharat Jamil MD [Primary Care Provider] - Forms: ED Department Discharge Additional Instructions: - Rest and push fluids - Colome diet until diarrhea improves - Recommend starting potassium supplement 40 meq daily for the next week - Follow up with PCP for recheck in the next week, sooner if symptoms persist Sepsis Event Note (ED) - Evaluation Sepsis Screening Result: No Definite Risk - Problem List & Annotations (1) Diarrhea SNOMED Code(s): 68386542 Code(s): R19.7 - DIARRHEA, UNSPECIFIED Status: Acute (2) Viral gastroenteritis SNOMED Code(s): 451651857 Code(s): A08.4 - VIRAL INTESTINAL INFECTION, UNSPECIFIED Status: Acute (3) Hypokalemia SNOMED Code(s): 41897401 Code(s): E87.6 - HYPOKALEMIA Status: Acute - Problem List Review Problem List Initiated/Reviewed/Updated: Yes - Assessment/Plan Assessment:: Viral Gastroenteritis Diarrhea Plan: Labs all stable except potassium 2.9. Patient given 1 L fluid bolus and 20 meq KCL. Will discharge home on oral potassium for the next week. Recommend follow up Tuesday for recheck if diarrhea continues, otherwise follow up with PCP 1 week for recheck potassium. Patient discharge in satisfactory condition following completion of IVF.
[2020-04-25] MEDS: Sodium Chloride 0.9% 250 ML IV SCH (18:48)
== END 2020-04-25 20:15 | disposition home or self-care (01) ==
LOC: CC.ED 14:33
DX: A08.4 Viral intestinal infection, unspecified (principal); E78.00 Pure hypercholesterolemia, unspecified; K21.9 Gastro-esophageal reflux disease without esophagitis; M19.90 Unspecified osteoarthritis, unspecified site; G20 Parkinson's disease; Z79.82 Long term (current) use of aspirin
CPT/HCPCS: 36415; 80053; 82150; 83690; 85025; 86140; 96365; 96366; 99283; 99284-25; J3480; J7030; J7050

== ENCOUNTER 2020-05-05 15:15 | Emergency (ER) | payer MEDICARE ==
[2020-05-05 15:53] VITALS: PULSE 93
[2020-05-05] MEDS ORDERED: fentaNYL 100 MCG/2 ML SDV IVPUSH ONE (16:07)
[2020-05-05 16:31] VITALS: BP 165/94
--- NOTE | 2020-05-05 16:50 | EDM.PDOC ---
ED HPI GENERAL MEDICAL PROBLEM - General Chief Complaint: General Stated Complaint: fall Time Seen by Provider: 05/05/20 15:40 - History of Present Illness INITIAL COMMENTS - FREE TEXT/NARRATIVE: Marielle is a 74 yo female who presents to the ED after sustaining a fall in her home just prior to arrival. Patient is a poor historian d/t underlying dementia. Patient is alert but disoriented. reports this is patient's baseline. She is anxious and unable to verbalize where she is having pain. Does say her left wrist is hurting. reports she was wearing slipper socks, standing on a throw rug. Reports the rug slipped out from under her as it was on hard wood floor and patient face planted into the floor. Does have small laceration to left cheek, otherwise no obvious injuries. GCS 14 due to underlying dementia. C collar placed as patient was having some neck pain. reports prior to fall she was doing well, at baseline. They deny any other injuries. Onset: Today, Sudden Location: Reports: Generalized Associated Symptoms: Reports: Confusion (baseline dementia). Denies: Chest Pain, Cough, cough w sputum, Diaphoresis, Fever/Chills, Headaches, Loss of Appetite, Malaise, Nausea/Vomiting, Rash, Seizure, Shortness of Breath, Syncope, Weakness - Related Data Allergies Allergy/AdvReac Type Severity Reaction Status Date / Time No Known Allergies Allergy Verified 05/05/20 15:48 Home Meds: Home Meds Cholecalciferol (Vitamin D3) [Vitamin D3] 5,000 unit PO DAILY 10/30/13 [History] Multivitamin with Minerals [Multiple Vitamin] 1 tab PO DAILY 10/30/13 [History] Simvastatin [Zocor] 20 mg PO DAILY 10/30/13 [History] Aspirin [Adult Low Dose Aspirin EC] 81 mg PO DAILY 04/30/14 [History] Carbidopa/Levodopa [Carbidopa-Levodopa 25-100 Tab] 1 each PO QID 02/16/19 [History] Omeprazole 20 mg PO DAILY 02/16/19 [History] Denosumab [Prolia] 60 mg SUBCUT ASDIRECTED 08/23/19 [History] Mirtazapine 15 mg PO BEDTIME 03/27/20 [History] Potassium Chloride 40 meq PO DAILY #14 tablet.er 04/25/20 [Rx] Past Medical History HEENT History: Reports: Hard of Hearing Cardiovascular History: Reports: High Cholesterol Gastrointestinal History: Reports: Chronic Constipation, GERD, PUD Genitourinary History: Reports: Other (See Below) Other Genitourinary History: hematuria [employer] INS[employer] History: Reports: Musculoskeletal History: Reports: Arthritis, Osteoporosis Neurological History: Reports: Parkinson's Psychiatric History: Reports: Depression Endocrine/Metabolic History: Reports: Vitamin D Deficiency Hematologic History: Reports: Iron Deficiency - Past Surgical History HEENT Surgical History: Reports: None Other HEENT Surgeries/Procedures: lens replaced Cardiovascular Surgical History: Reports: None GI Surgical History: Reports: Appendectomy Female Surgical History: Reports: Tubal Ligation Endocrine Surgical History: Reports: None Neurological Surgical History: Reports: None Musculoskeletal Surgical History: Reports: None Social & Family History - Family History Family Medical History: No Pertinent Family History - Tobacco Use Tobacco Use Status *Q: Never Tobacco User Second Hand Smoke Exposure: No - Caffeine Use Caffeine Use: Reports: None - Recreational Drug Use Recreational Drug Use: No - Living Situation & Occupation Living situation: Reports: , with Spouse Occupation: Employed ED ROS GENERAL - Review of Systems Review Of Systems: Comprehensive ROS is negative, except as noted in HPI. ED EXAM, GENERAL - Physical Exam Exam: See Below Exam Limited By: No Limitations General Appearance: Alert, WD/WN, Anxious, Mild Distress Eye Exam: Bilateral Eye: EOMI, Normal Fundi, Normal Inspection, PERRL Ears: Normal External Exam, Normal Canal, Hearing Grossly Normal, Normal TMs Nose: Normal Inspection, Normal Mucosa, No Blood Throat/Mouth: Normal Inspection, Normal Lips, Normal Teeth, Normal Gums, Normal Oropharynx, Normal Voice, No Airway Compromise Head: Atraumatic, Normocephalic Neck: Normal Inspection, Supple, Non-Tender, Full Range of Motion Respiratory/Chest: No Respiratory Distress, Lungs Clear, Normal Breath Sounds, No Accessory Muscle Use, Chest Non-Tender Cardiovascular: Normal Peripheral Pulses, Regular Rate, Rhythm, No Edema, No Gallop, No JVD, No Murmur, No Rub GI/Abdominal: Normal Bowel Sounds, Soft, Non-Tender, No Organomegaly, No Distention, No Abnormal Bruit, No Mass Back Exam: Normal Inspection, Full Range of Motion. No: Decreased Range of Motion, Muscle Spasm, Paraspinal Tenderness, Vertebral Tenderness Extremities: Normal Inspection, Normal Range of Motion, Non-Tender, Normal Capillary Refill, No Pedal Edema Neurological: Alert, CN II-XII Intact, Normal Cognition, Normal Gait, Normal Reflexes, No Motor/Sensory Deficits, Disoriented Psychiatric: Anxious Skin Exam: Wound/Incision (1 cm laceration to left cheek) Course - Vital Signs Last Recorded V/S: Last Vital Signs Temp 97.4 F 05/05/20 15:52 Pulse 93 05/05/20 15:52 Resp 20 05/05/20 15:52 BP 165/94 H 05/05/20 16:31 Pulse Ox 100 05/05/20 15:52 - Orders/Labs/Meds Orders: Active Orders 24 hr Category Date Time Status C-Spine [Cervical Spine wo Cont] [CT] Stat Exams 05/05/20 15:38 Taken Head wo Cont [CT] Stat Exams 05/05/20 15:40 Taken Max Facial Sinus wo Cont [CT] Stat Exams 05/05/20 15:38 Taken Meds: Medications Discontinued Medications Generic Name Dose Route Start Last Admin Trade Name Kai PRN Reason Stop Dose Admin Fentanyl 25 mcg 05/05/20 16:07 05/05/20 16:15 Fentanyl 100 Mcg/2 Ml Sdv IVPUSH 05/05/20 16:08 25 mcg ONETIME ONE Administration - Re-Assessments/Exams Free Text/Narrative Re-Assessment/Exam: Head, c-spine and maxillofacial CT all without acute findings. Left wrist xray without acute findings. C collar removed. Patient is up ambulatory in ED without complaints. Steri strips applied to laceration on left cheek. Discussed concern of patient living alone with . He reports he feels things are going okay at home and he does not have concern of her being home. Is only alone for a few hours in the morning while works. = Departure - Departure Time of Disposition: 16:48 Disposition: Home, Self-Care 01 Condition: Fair Clinical Impression: Fall at home, Laceration of cheek, left - Discharge Information *PRESCRIPTION DRUG MONITORING PROGRAM REVIEWED*: Not Applicable *COPY OF PRESCRIPTION DRUG MONITORING REPORT IN PATIENT FLO: Not Applicable Instructions: Facial Laceration, [id number] Referrals: Bharat Jamil MD [Primary Care Provider] - Forms: ED Department Discharge Additional Instructions: - Ice affected areas - Tylenol or ibuprofen as needed for any discomfort - Leave steri strips on until they fall off on own - Recommend removing scatter rugs and wear gripper socks/slippers to prevent falls - Follow up with PCP for recheck as needed Sepsis Event Note (ED) - Evaluation Sepsis Screening Result: No Definite Risk - Problem List & Annotations (1) Fall at home SNOMED Code(s): 30239248 Code(s): W19.XXXA - UNSPECIFIED FALL, INITIAL ENCOUNTER; Y92.009 - UNSP PLACE IN UNSP NON-INSTITUT (PRIVATE) RESIDENCE PLACE Status: Acute (2) Simple laceration of face SNOMED Code(s): 093914920 Code(s): S01.81XA - LACERATION W/O FOREIGN BODY OF OTH PART OF HEAD, INIT ENCNTR Status: Acute - My Orders Last 24 Hours: My Active Orders 05/05/20 15:38 C-Spine [Cervical Spine wo Cont] [CT] Stat Max Facial Sinus wo Cont [CT] Stat 05/05/20 15:40 Head wo Cont [CT] Stat - Assessment/Plan Last 24 Hours: My Active Orders 05/05/20 15:38 C-Spine [Cervical Spine wo Cont] [CT] Stat Max Facial Sinus wo Cont [CT] Stat 05/05/20 15:40 Head wo Cont [CT] Stat Assessment:: Fall at home Facial laceration Plan: As above.
== END 2020-05-05 16:59 | disposition home or self-care (01) ==
LOC: CC.ED 15:15
DX: S01.412A Laceration without foreign body of left cheek and temporomandibular area, initial encounter (principal); E78.00 Pure hypercholesterolemia, unspecified; K21.9 Gastro-esophageal reflux disease without esophagitis; M19.90 Unspecified osteoarthritis, unspecified site; G20 Parkinson's disease; F02.80 Dementia in other diseases classified elsewhere, unspecified severity, without behavioral disturbance, psychotic disturbance, mood disturbance, and anxiety; Z79.82 Long term (current) use of aspirin; Z79.899 Other long term (current) drug therapy; W01.0XXA Fall on same level from slipping, tripping and stumbling without subsequent striking against object, initial encounter; Y92.009 Unspecified place in unspecified non-institutional (private) residence as the place of occurrence of the external cause
CPT/HCPCS: 70450; 70486; 72125; 73100-LT; 96374; 99284; 99284-25; J3010

== ENCOUNTER 2020-05-14 17:22 | Emergency (ER) | payer MEDICARE ==
[2020-05-14 17:28] VITALS: BP 117/66; PULSE 79
[2020-05-14 17:51] LABS: CHLORIDE,CL 103 mEq/L (98-106); SODIUM,NA 143 mEq/L (136-145)
--- NOTE | 2020-05-14 18:26 | EDM.PDOC ---
ED HPI GENERAL MEDICAL PROBLEM - General Chief Complaint: General Stated Complaint: fall Time Seen by Provider: 05/14/20 17:23 Source of Information: Reports: Patient, EMS, Family History Limitations: Reports: Altered Mental Status - History of Present Illness INITIAL COMMENTS - FREE TEXT/NARRATIVE: Marielle is a 74 year old female who presents to ER per EMS after 2 falls this af ternoon. was concerned and felt she "needed to be checked out". Is worried as she is weak and doesn't eat or drink much. Has to arrange food for her for each day as he is gone to teach at [employer] every day until 12 noon. States she was still in bed when he got home today. Does relate patient is getting more confused and unsteady. Has had 3 ambulance rides and 3 visits to the ER since the 25 of April. Relates falling more often. Does not have family close by to help with her during the day. Has meals delivered every day and portions them out for her but she doesn't ever really eat them and he is not sure how to get her to eat. He did hear her holler with each fall, was able to pick her up off the floor. Unsure if "she passed out". Was more limp the second time but denied any pain with getting her up. Patient denies any pain. No nausea/vomiting/shortness of breath. Onset: Today, Sudden Duration: Hour(s):, Waxing/Waning Location: Reports: Generalized Associated Symptoms: Reports: Confusion, Loss of Appetite, Weakness. Denies: Chest Pain, Cough, Fever/Chills, Nausea/Vomiting, Shortness of Breath - Related Data Allergies Allergy/AdvReac Type Severity Reaction Status Date / Time No Known Allergies Allergy Verified 05/05/20 15:48 Home Meds: Home Meds Cholecalciferol (Vitamin D3) [Vitamin D3] 5,000 unit PO DAILY 10/30/13 [History] Multivitamin with Minerals [Multiple Vitamin] 1 tab PO DAILY 10/30/13 [History] Simvastatin [Zocor] 20 mg PO DAILY 10/30/13 [History] Aspirin [Adult Low Dose Aspirin EC] 81 mg PO DAILY 04/30/14 [History] Carbidopa/Levodopa [Carbidopa-Levodopa 25-100 Tab] 1 each PO QID 02/16/19 [History] Omeprazole 20 mg PO DAILY 02/16/19 [History] Denosumab [Prolia] 60 mg SUBCUT ASDIRECTED 08/23/19 [History] Mirtazapine 15 mg PO BEDTIME 03/27/20 [History] Potassium Chloride 40 meq PO DAILY #14 tablet.er 04/25/20 [Rx] Past Medical History HEENT History: Reports: Hard of Hearing Cardiovascular History: Reports: High Cholesterol Gastrointestinal History: Reports: Chronic Constipation, GERD, PUD Genitourinary History: Reports: Other (See Below) Other Genitourinary History: hematuria 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: Musculoskeletal History: Reports: Arthritis, Osteoporosis Neurological History: Reports: Parkinson's Psychiatric History: Reports: Depression Endocrine/Metabolic History: Reports: Vitamin D Deficiency Hematologic History: Reports: Iron Deficiency - Past Surgical History HEENT Surgical History: Reports: None Other HEENT Surgeries/Procedures: lens replaced Cardiovascular Surgical History: Reports: None GI Surgical History: Reports: Appendectomy Female Surgical History: Reports: Tubal Ligation Endocrine Surgical History: Reports: None Neurological Surgical History: Reports: None Musculoskeletal Surgical History: Reports: None Social & Family History - Family History Family Medical History: No Pertinent Family History - Tobacco Use Tobacco Use Status *Q: Never Tobacco User - Caffeine Use Caffeine Use: Reports: None - Recreational Drug Use Recreational Drug Use: No - Living Situation & Occupation Living situation: Reports: , with Spouse Occupation: Employed ED ROS GENERAL - Review of Systems Review Of Systems: See Below Constitutional: Reports: Weakness, Fatigue. Denies: Fever, Chills, Malaise HEENT: Denies: Ear Pain, Sinus Problem, Throat Pain Respiratory: Denies: Shortness of Breath, Cough Cardiovascular: Denies: Chest Pain, Edema, Lightheadedness Endocrine: Reports: Fatigue GI/Abdominal: Denies: Abdominal Pain, Constipation, Diarrhea, Nausea, Vomiting : Denies: Dysuria Musculoskeletal: Reports: No Symptoms Skin: Reports: No Symptoms Neurological: Reports: Confusion, Pre-Existing Deficit ED EXAM, GENERAL - Physical Exam Exam: See Below Exam Limited By: No Limitations General Appearance: Alert, WD/WN, No Apparent Distress Eye Exam: Bilateral Eye: EOMI, PERRL Ears: Normal External Exam, Normal TMs Nose: Normal Inspection, Normal Mucosa, No Blood Throat/Mouth: Normal Inspection, Normal Oropharynx Head: Normocephalic Neck: Normal Inspection, Supple, Non-Tender Respiratory/Chest: No Respiratory Distress, Lungs Clear, Normal Breath Sounds Cardiovascular: Regular Rate, Rhythm GI/Abdominal: Normal Bowel Sounds, Soft, Non-Tender Extremities: Other Neurological: Alert, Oriented (person and place. Unable to recall events of day, does not recall if ate, does not know president. ) Skin Exam: Warm, Dry Course - Vital Signs Last Recorded V/S: Last Vital Signs Temp 96.9 F 05/14/20 17:23 Pulse 79 05/14/20 17:23 Resp 18 05/14/20 17:23 BP 117/66 05/14/20 17:23 Pulse Ox 99 05/14/20 17:23 - Orders/Labs/Meds Orders: Active Orders 24 hr Category Date Time Status CULTURE URINE [RM] Stat Lab 05/14/20 18:10 Received NS + KCl 20mEq/L [Normal Saline with 20 mEq KCl] 1,000 Med 05/14/20 18:45 Active ml IV ASDIRECTED Medication Orders Potassium Chloride/Sodium Chloride (Normal Saline With 20 Meq Kcl) 1,000 mls @ 250 mls/hr IV ASDIRECTED RADHA Last Admin: 05/14/20 18:46 Dose: 250 mls/hr Documented by: VASILIY Labs: Laboratory Tests 05/14/20 05/14/20 05/14/20 Range/Units 17:40 17:40 18:10 WBC 5.3 (5.0-10.0) 10^3/uL RBC 4.73 (4.00-5.50) 10^6/uL Hgb 13.9 (12.0-16.0) g/dL Hct 42.4 (37.0-47.0) % MCV 89.6 (82.0-94.0) fL MCH 29.4 (27.0-32.0) pg MCHC 32.8 L (33.0-38.0) g/dL RDW Coeff of Catrina 13.9 (11.0-15.0) % Plt Count 228 (150-400) 10^3/uL Neut % (Auto) 67.3 (35-85) % Lymph % (Auto) 21.1 (10-55) % [place] % (Auto) 10.6 (0-16) % Eos % (Auto) 0.8 (0-5) % Baso % (Auto) 0.2 (0-3) % Neut # (Auto) 3.57 (1.80-7.00) 10^3/uL Lymph # (Auto) 1.12 (1.00-4.80) 10^3/uL [place] # (Auto) 0.56 (0.00-0.80) 10^3/uL Eos # (Auto) 0.04 (0.00-0.45) 10^3/uL Baso # (Auto) 0.01 10^3/uL Sodium 143 (136-145) mEq/L Potassium 3.1 L (3.5-5.0) mEq/L Chloride 103 (98-106) mEq/L Carbon Dioxide 23 (21-32) mmol/L BUN 19 H (7-18) mg/dL Creatinine 0.7 (0.6-1.0) mg/dL Est Cr Clr Drug Dosing 54.70 mL/min Estimated GFR (MDRD) > 60 (>=60) mL/min Glucose 82 (75-99) mg/dL Calcium 8.7 (8.4-10.1) mg/dL C-Reactive Protein < 0.2 L (0.2-0.8) mg/dL Urine Color Dark yellow (YELLOW) Urine Appearance Clear (CLEAR) Urine pH 6.0 (4.5-8.0) Ur Specific [place] >= 1.030 H (1.003-1.020) Urine Protein 100 H (NEGATIVE) mg/dL Urine Glucose (UA) Negative (NEGATIVE) mg/dL Urine Ketones 40 H (NEGATIVE) mg/dL Urine Occult Blood Negative (NEGATIVE) Urine Nitrite Negative (NEGATIVE) Urine Bilirubin Negative (NEGATIVE) Urine Urobilinogen 1.0 (0.2-1.0) EU/dL Ur Leukocyte Esterase Trace H (NEGATIVE) Urine RBC 0-5 (0-5) /HPF Urine WBC 20-30 H (0-5) /HPF Ur Epithelial Cells Moderate H (NOT SEEN) /HPF Urine Mucus Few H (NOT SEEN) /HPF Meds: Medications Generic Name Dose Route Start Last Admin Trade Name Freq PRN Reason Stop Dose Admin Potassium Chloride/Sodium Chloride 1,000 mls @ 250 mls/hr 05/14/20 18:45 05/14/20 18:46 Normal Saline With 20 Meq Kcl IV 250 mls/hr ASDIRECTED [facility] Administration - Re-Assessments/Exams Free Text/Narrative Re-Assessment/Exam: 05/14/20 Expressed concern to about patient safety as she is home for 4-5 hours every day and has had much more difficulties over the last 2 months. he relates he has 2 months left of teaching but does feel he needs help with her at home as does not eat or drink and is unsteady. Advised to talk to social sciences chair about any type of services that may be available as he has no family close by and would like to finish out the year teaching and then will have the summer at home with her. Advised to get Ensure for her to drink, leave easily accessible to her during the day, ie. cut up fruit, granola bars, yogurt, water bottles. Labs noted. Potassium 3.1. He is unsure if she has been taking her pills. Has history of hypokalemia, is prescribed to take 40 meq daily. Specific gravity of urine greater than 1.030. Will give 500 ml of fluid over the next 2 hours before return home. Will culture urine, 10-20 WBC noted but many 05/14/20 21:08 Ambulating well. IV fluids infused. Departure - Departure Time of Disposition: 21:09 Disposition: Home, Self-Care 01 Condition: Fair Clinical Impression: Dehydration, Hypokalemia - Discharge Information *PRESCRIPTION DRUG MONITORING PROGRAM REVIEWED*: No *COPY OF PRESCRIPTION DRUG MONITORING REPORT IN PATIENT FLO: No Instructions: Dehydration, Adult, [id number] Referrals: PCP,None [Primary Care Provider] - Forms: ED Department Discharge Additional Instructions: 1. Push fluids 2. Consider having water bottle and Ensure available for her to sip on through day 3. Small, easily obtainable snacks for patient to eat during the day 4. Contact social sciences chair to determine if any available services for assistance in your home Sepsis Event Note (ED) - Evaluation Sepsis Screening Result: No Definite Risk - Focused Exam Vital Signs: Vital Signs Temp Pulse Resp BP Pulse Ox 05/14/20 17:23 96.9 F 79 18 117/66 99 - My Orders Last 24 Hours: My Active Orders 05/14/20 18:10 CULTURE URINE [RM] Stat 05/14/20 18:45 NS + KCl 20mEq/L [Normal Saline with 20 mEq KCl] 1,000 ml IV ASDIRECTED - Assessment/Plan Last 24 Hours: My Active Orders 05/14/20 18:10 CULTURE URINE [RM] Stat 05/14/20 18:45 NS + KCl 20mEq/L [Normal Saline with 20 mEq KCl] 1,000 ml IV ASDIRECTED
[2020-05-14] MEDS ORDERED: NS + KCl 20mEq/L 1,000 ML IV SCH (18:45)
== END 2020-05-14 21:14 | disposition home or self-care (01) ==
LOC: CC.ED 17:22
DX: E86.0 Dehydration (principal); E87.6 Hypokalemia; E78.00 Pure hypercholesterolemia, unspecified; K21.9 Gastro-esophageal reflux disease without esophagitis; M19.90 Unspecified osteoarthritis, unspecified site; G20 Parkinson's disease; Z79.82 Long term (current) use of aspirin; Z79.899 Other long term (current) drug therapy
CPT/HCPCS: 36415; 80048; 81001; 85025; 86140; 87086; 96365; 96366; 99284; 99285-25; J3480

== ENCOUNTER 2020-06-10 12:03 | Inpatient (IN) | payer MEDICARE ==
[2020-06-10 12:38] LABS: CHLORIDE,CL 105 mEq/L (98-106); SODIUM,NA 146 mEq/L (136-145)
--- NOTE | 2020-06-10 12:50 | EDM.PDOC ---
ED HPI GENERAL MEDICAL PROBLEM - General Chief Complaint: General Stated Complaint: weakness Time Seen by Provider: 06/10/20 12:25 Source of Information: Reports: Patient, RN History Limitations: Reports: Altered Mental Status (known dementia) - History of Present Illness INITIAL COMMENTS - FREE TEXT/NARRATIVE: Marielle is a 75 yo female who is brought into the ED via [facility] d/t weakness and dehydration. Patient has been not eating or drinking well for awhile now. She states she had called the cassy from [facility] [employer] [facility] and came and checked on her today. 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 She states her memory isn't very good. States she knows she is at the hospital in [place]. She denies any headaches, shortness of breath, cough, chest pain, abdominal pain, diarrhea, N/V. States she is just really weak as she doesn't eat or drink much. Has been to the hospital via EMS 4 times now since April for recurrent falls. She denies any falls today. Denies any injuries. - Related Data Allergies Allergy/AdvReac Type Severity Reaction Status Date / Time No Known Allergies Allergy Verified 06/10/20 12:06 Home Meds: Home Meds Cholecalciferol (Vitamin D3) [Vitamin D3] 5,000 unit PO DAILY 10/30/13 [History] Multivitamin with Minerals [Multiple Vitamin] 1 tab PO DAILY 10/30/13 [History] Simvastatin [Zocor] 20 mg PO DAILY 10/30/13 [History] Aspirin [Adult Low Dose Aspirin EC] 81 mg PO DAILY 04/30/14 [History] Carbidopa/Levodopa [Carbidopa-Levodopa 25-100 Tab] 1 each PO QID 02/16/19 [History] Omeprazole 20 mg PO DAILY 02/16/19 [History] Denosumab [Prolia] 60 mg SUBCUT ASDIRECTED 08/23/19 [History] Mirtazapine 15 mg PO BEDTIME 03/27/20 [History] Potassium Chloride 40 meq PO DAILY #14 tablet.er 04/25/20 [Rx] Past Medical History HEENT History: Reports: Hard of Hearing Cardiovascular History: Reports: High Cholesterol Gastrointestinal History: Reports: Chronic Constipation, GERD, PUD Genitourinary History: Reports: Other (See Below) Other Genitourinary History: 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: Musculoskeletal History: Reports: Arthritis, Osteoporosis Neurological History: Reports: Parkinson's Psychiatric History: Reports: Depression Endocrine/Metabolic History: Reports: Vitamin D Deficiency Hematologic History: Reports: Iron Deficiency - Past Surgical History HEENT Surgical History: Reports: None Other HEENT Surgeries/Procedures: lens replaced Cardiovascular Surgical History: Reports: None GI Surgical History: Reports: Appendectomy Female Surgical History: Reports: Tubal Ligation Endocrine Surgical History: Reports: None Neurological Surgical History: Reports: None Musculoskeletal Surgical History: Reports: None Social & Family History - Family History Family Medical History: No Pertinent Family History - Caffeine Use Caffeine Use: Reports: None - Living Situation & Occupation Living situation: Reports: , with Spouse Occupation: Employed ED ROS GENERAL - Review of Systems Review Of Systems: See Below Constitutional: Reports: Weakness, Fatigue, Decreased Appetite. Denies: Fever HEENT: Reports: No Symptoms Respiratory: Denies: Shortness of Breath, Wheezing, Cough Cardiovascular: Denies: Chest Pain, Edema, Orthopnea, Palpitations GI/Abdominal: Denies: Abdominal Pain, Diarrhea, Nausea, Vomiting : Reports: No Symptoms Musculoskeletal: Reports: No Symptoms Neurological: Reports: Pre-Existing Deficit, Difficulty Walking, Weakness. Denies: Headache, Numbness, Syncope, Tingling Psychiatric: Reports: No Symptoms ED EXAM, GENERAL - Physical Exam Exam: See Below Exam Limited By: Altered Mental Status (normal cognition, alert and orientated to place) General Appearance: Lethargic, Thin, Cachetic Ears: Normal External Exam, Normal TMs Nose: Normal Inspection, No Blood Throat/Mouth: Other (dry oral mucosa, lips) Neck: Normal Inspection, Supple Respiratory/Chest: No Respiratory Distress, Lungs Clear, Normal Breath Sounds, No Accessory Muscle Use Cardiovascular: Normal Peripheral Pulses, Regular Rate, Rhythm, No Edema GI/Abdominal: Normal Bowel Sounds, Soft, Non-Tender, No Distention, No Mass Extremities: Normal Inspection, No Pedal Edema Neurological: Alert, Oriented, Normal Cognition, No Motor/Sensory Deficits, Memory Loss Recent Events. No: Inattentive, Disoriented Psychiatric: Normal Affect, Normal Mood Course - Vital Signs Last Recorded V/S: Last Vital Signs Temp 99.2 F 06/10/20 15:08 Pulse 86 06/10/20 15:08 Resp 16 06/10/20 15:08 BP 138/78 06/10/20 15:08 Pulse Ox 99 06/10/20 15:08 - Orders/Labs/Meds Orders: Active Orders 24 hr Category Date Time Status UA RFX OVIDIO AND CULT IF INDIC [URIN] Stat Lab 06/10/20 12:14 Ordered NS + KCl 20mEq/L [Normal Saline with 20 mEq KCl] 1,000 Med 06/10/20 13:15 Active ml IV ASDIRECTED Medication Orders Aspirin (Aspirin 81 Mg Tab.Ec) 81 mg PO DAILY RADHA Carbidopa/Levodopa (Carbidopa/Levodopa 25-100 Mg Tab Pt Own) 1 tab PO DAILY@0700,1100,1500,1900 RADHA Last Admin: 06/10/20 18:02 Dose: 1 tab Documented by: AYUSH Docusate Sodium (Docusate Sodium 100 Mg Cap) 100 mg PO BID PRN PRN Reason: Constipation Enoxaparin Sodium (Enoxaparin 40 Mg/0.4 Ml Syringe) 40 mg SUBCUT BEDTIME RADHA Potassium Chloride/Sodium Chloride (Normal Saline With 20 Meq Kcl) 1,000 mls @ 999 mls/hr IV ASDIRECTED RADHA Last Admin: 06/10/20 13:45 Dose: 999 mls/hr Documented by: AYUSH Mirtazapine (Mirtazapine 15 Mg Tab Pt Own) 15 mg PO BEDTIME RADHA Omeprazole 20 Mg Tablet.Dr Pt Own* * 0 mg PO DAILY RADHA Potassium Chloride 20 Meq Tablet.Er Pt Own 0 meq PO DAILY RADHA Simvastatin (Simvastatin 20 Mg Tab Pt Own) 20 mg PO BEDTIME [facility] Labs: Laboratory Tests 06/10/20 06/10/20 Range/Units 12:14 12:14 WBC 3.4 L (5.0-10.0) 10^3/uL RBC 4.89 (4.00-5.50) 10^6/uL Hgb 14.7 (12.0-16.0) g/dL Hct 43.9 (37.0-47.0) % MCV 89.8 (82.0-94.0) fL MCH 30.1 (27.0-32.0) pg MCHC 33.5 (33.0-38.0) g/dL RDW Coeff of Catrina 14.4 (11.0-15.0) % Plt Count 225 (150-400) 10^3/uL Neut % (Auto) 57.3 (35-85) % Lymph % (Auto) 31.1 (10-55) % [place] % (Auto) 9.6 (0-16) % Eos % (Auto) 1.7 (0-5) % Baso % (Auto) 0.3 (0-3) % Neut # (Auto) 1.97 (1.80-7.00) 10^3/uL Lymph # (Auto) 1.07 (1.00-4.80) 10^3/uL [place] # (Auto) 0.33 (0.00-0.80) 10^3/uL Eos # (Auto) 0.06 (0.00-0.45) 10^3/uL Baso # (Auto) 0.01 10^3/uL Sodium 146 H (136-145) mEq/L Potassium 3.0 L (3.5-5.0) mEq/L Chloride 105 (98-106) mEq/L Carbon Dioxide 24 (21-32) mmol/L BUN 19 H (7-18) mg/dL Creatinine 0.7 (0.6-1.0) mg/dL Est Cr Clr Drug Dosing TNP Estimated GFR (MDRD) > 60 (>=60) mL/min Glucose 95 (75-99) mg/dL Calcium 9.0 (8.4-10.1) mg/dL Total Bilirubin 0.7 (0.0-1.0) mg/dL AST 16 (15-37) U/L ALT 13 (12-78) U/L Alkaline Phosphatase 57 (46-116) U/L C-Reactive Protein < 0.2 L (0.2-0.8) mg/dL Total Protein 6.6 (6.4-8.2) g/dL Albumin 3.7 (3.4-5.0) g/dL Meds: Medications Generic Name Dose Route Start Last Admin Trade Name Freq PRN Reason Stop Dose Admin Aspirin 81 mg 06/11/20 08:00 Aspirin 81 Mg Tab.Ec PO DAILY RADHA Carbidopa/Levodopa 1 tab 06/10/20 19:00 06/10/20 18:02 Carbidopa/Levodopa 25-100 Mg Tab Pt Own PO 1 tab DAILY@0700,1100,1500,1900 RADHA Administration Docusate Sodium 100 mg 06/10/20 15:00 Docusate Sodium 100 Mg Cap PO BID PRN Constipation Enoxaparin Sodium 40 mg 06/10/20 20:00 Enoxaparin 40 Mg/0.4 Ml Syringe SUBCUT BEDTIME RADHA Potassium Chloride/Sodium Chloride 1,000 mls @ 999 mls/hr 06/10/20 13:15 06/10/20 13:45 Normal Saline With 20 Meq Kcl IV 999 mls/hr ASDIRECTED RADHA Administration Mirtazapine 15 mg 06/10/20 20:00 Mirtazapine 15 Mg Tab Pt Own PO BEDTIME RADHA Omeprazole 20 Mg 0 mg 06/11/20 08:[address] Pt Own* PO * DAILY RADHA Potassium Chloride 0 meq 06/11/20 08:00 20 Meq Tablet.Er PO Pt Own DAILY RADHA Simvastatin 20 mg 06/10/20 20:00 Simvastatin 20 Mg Tab Pt Own PO BEDTIME RADHA Departure - Departure Time of Disposition: 13:13 Disposition: Refer to Observation Clinical Impression: Dehydration, Hypokalemia - Discharge Information *PRESCRIPTION DRUG MONITORING PROGRAM REVIEWED*: Not Applicable *COPY OF PRESCRIPTION DRUG MONITORING REPORT IN PATIENT FLO: Not Applicable Sepsis Event Note (ED) - Evaluation Sepsis Screening Result: No Definite Risk - Focused Exam Vital Signs: Vital Signs Temp Pulse Resp BP Pulse Ox 06/10/20 12:07 98.0 F 87 20 138/88 95 - Problem List & Annotations (1) Hypokalemia SNOMED Code(s): 69041786 Code(s): E87.6 - HYPOKALEMIA Status: Acute Current Visit: Yes (2) Dehydration SNOMED Code(s): 10317326 Code(s): E86.0 - DEHYDRATION Status: Acute Current Visit: Yes - My Orders Last 24 Hours: My Active Orders 06/10/20 12:14 UA RFX OVIDIO AND CULT IF INDIC [URIN] Stat 06/10/20 13:15 NS + KCl 20mEq/L [Normal Saline with 20 mEq KCl] 1,000 ml IV ASDIRECTED - Assessment/Plan Admission H&P: Please use this note as an admission H&P Last 24 Hours: My Active Orders 06/10/20 12:14 UA RFX OVIDIO AND CULT IF INDIC [URIN] Stat 06/10/20 13:15 NS + KCl 20mEq/L [Normal Saline with 20 mEq KCl] 1,000 ml IV ASDIRECTED Plan: Marielle will be admitted under observation status for IV fluids. Urinalysis still pending. Discussed findings with Marielle and her . Dr. Jamil consulted and agrees with admission at this time for observation. Will give potassium supplementation.
[2020-06-10] MEDS: NS + KCl 20mEq/L 1,000 ML IV SCH ×2 (13:45→19:55)
[2020-06-10] MEDS ORDERED: Docusate Sodium 100 MG Cap PO PRN (15:00)
[2020-06-10] MEDS: CARBIDOPA PO SCH (18:02)
[2020-06-10] MEDS: LEVODOPA PO SCH (18:02)
[2020-06-10] MEDS: Enoxaparin 40 MG/0.4 ML Syringe SUBCUT SCH (19:55)
[2020-06-10] MEDS: MIRTAZAPINE 15 MG PO SCH (20:00)
[2020-06-10] MEDS: SIMVASTATIN 20 MG PO SCH (20:00)
[2020-06-10] MEDS: Temazepam 15 MG Cap PO PRN (22:57)
[2020-06-11] MEDS: NS + KCl 20mEq/L 1,000 ML IV SCH ×2 (03:59→14:05)
[2020-06-11] MEDS: LEVODOPA PO SCH ×4 (06:27→18:53)
[2020-06-11] MEDS: CARBIDOPA PO SCH ×4 (06:27→18:53)
[2020-06-11 07:35] LABS: CHLORIDE,CL 110 mEq/L (98-106); SODIUM,NA 146 mEq/L (136-145)
[2020-06-11] MEDS: Aspirin 81 MG Tab.EC PO SCH (07:49)
[2020-06-11] MEDS ORDERED: POTASSIUM CHLORIDE 20 MEQ PO SCH (08:00)
--- NOTE | 2020-06-11 10:08 | PCM.PN ---
- General Info Date of Service: 06/11/20 Subjective Update: Marielle is a 75 yo female who was admitted to the hospital yesterday from the ED with weakness and dehydration. Patient has not had an appetite lately and admitted she doesn't drink very much fluids. States he does harp on her all the time about drinking fluids and eating. She states today she is feeling better. Continues to have a dry mouth. Has been up to the bathroom without difficulty. Denies any new onset of symptoms. - Review of Systems General: Reports: Weakness. Denies: Fever HEENT: Reports: No Symptoms Pulmonary: Reports: No Symptoms Cardiovascular: Reports: No Symptoms Gastrointestinal: Reports: Decreased Appetite. Denies: Diarrhea, Nausea, Vomiting Musculoskeletal: Reports: No Symptoms Skin: Reports: No Symptoms Neurological: Reports: Confusion, Pre-Existing Deficit - Patient Data Vitals - Most Recent: Last Vital Signs Temp 98.1 F 06/11/20 07:47 Pulse 83 06/11/20 07:47 Resp 18 06/11/20 07:47 BP 153/92 H 06/11/20 07:47 Pulse Ox 97 06/11/20 07:47 Weight - Most Recent: 110 lb I&O - Last 24 Hours: Intake & Output 06/10/20 06/11/20 06/11/20 22:59 06:59 14:59 Intake Total 1000 Balance 1000 Lab Results Last 24 Hours: Laboratory Results - last 24 hr 06/10/20 06/10/20 06/10/20 Range/Units 12:14 12:14 12:14 WBC 3.4 L (5.0-10.0) 10^3/uL RBC 4.89 (4.00-5.50) 10^6/uL Hgb 14.7 (12.0-16.0) g/dL Hct 43.9 (37.0-47.0) % MCV 89.8 (82.0-94.0) fL MCH 30.1 (27.0-32.0) pg MCHC 33.5 (33.0-38.0) g/dL RDW Coeff of [place]rina 14.4 (11.0-15.0) % Plt Count 225 (150-400) 10^3/uL Neut % (Auto) 57.3 (35-85) % Lymph % (Auto) 31.1 (10-55) % [place] % (Auto) 9.6 (0-16) % Eos % (Auto) 1.7 (0-5) % Baso % (Auto) 0.3 (0-3) % Neut # (Auto) 1.97 (1.80-7.00) 10^3/uL Lymph # (Auto) 1.07 (1.00-4.80) 10^3/uL [place] # (Auto) 0.33 (0.00-0.80) 10^3/uL Eos # (Auto) 0.06 (0.00-0.45) 10^3/uL Baso # (Auto) 0.01 10^3/uL Add Manual Diff Neutrophils % (Manual) (35-85) % Lymphocytes % (Manual) (21-55) % Monocytes % (Manual) (2-12) % Eosinophils % (Manual) (0-5) % Sodium 146 H (136-145) mEq/L Potassium 3.0 L (3.5-5.0) mEq/L Chloride 105 (98-106) mEq/L Carbon Dioxide 24 (21-32) mmol/L BUN 19 H (7-18) mg/dL Creatinine 0.7 (0.6-1.0) mg/dL Est Cr Clr Drug Dosing TNP Estimated GFR (MDRD) > 60 (>=60) mL/min Glucose 95 (75-99) mg/dL Calcium 9.0 (8.4-10.1) mg/dL Total Bilirubin 0.7 (0.0-1.0) mg/dL AST 16 (15-37) U/L ALT 13 (12-78) U/L Alkaline Phosphatase 57 (46-116) U/L C-Reactive Protein < 0.2 L (0.2-0.8) mg/dL Total Protein 6.6 (6.4-8.2) g/dL Albumin 3.7 (3.4-5.0) g/dL Urine Color Dark yellow (YELLOW) Urine Appearance Turbid (CLEAR) Urine pH 6.5 (4.5-8.0) Ur Specific [place] >= 1.030 H (1.003-1.020) Urine Protein 30 H (NEGATIVE) mg/dL Urine Glucose (UA) Negative (NEGATIVE) mg/dL Urine Ketones 80 H (NEGATIVE) mg/dL Urine Occult Blood Trace-lysed H (NEGATIVE) Urine Nitrite Negative (NEGATIVE) Urine Bilirubin Moderate H (NEGATIVE) Urine Urobilinogen 1.0 (0.2-1.0) EU/dL Ur Leukocyte Esterase Negative (NEGATIVE) Urine RBC 0-5 (0-5) /HPF Urine WBC 0-5 (0-5) /HPF Amorphous Sediment Many H (NOT SEEN) /HPF Urinalysis Comment 06/11/20 06/11/20 Range/Units 07:20 07:20 WBC 3.1 L (5.0-10.0) 10^3/uL RBC 3.93 L (4.00-5.50) 10^6/uL Hgb 11.7 L (12.0-16.0) g/dL Hct 36.4 L (37.0-47.0) % MCV 92.6 (82.0-94.0) fL MCH 29.8 (27.0-32.0) pg MCHC 32.1 L (33.0-38.0) g/dL RDW Coeff of [place] 14.5 (11.0-15.0) % Plt Count 183 (150-400) 10^3/uL Neut % (Auto) (35-85) % Lymph % (Auto) (10-55) % [place] % (Auto) (0-16) % Eos % (Auto) (0-5) % Baso % (Auto) (0-3) % Neut # (Auto) (1.80-7.00) 10^3/uL Lymph # (Auto) (1.00-4.80) 10^3/uL [place] # (Auto) (0.00-0.80) 10^3/uL Eos # (Auto) (0.00-0.45) 10^3/uL Baso # (Auto) 10^3/uL Add Manual Diff Yes Neutrophils % (Manual) 31 L (35-85) % Lymphocytes % (Manual) 56 H (21-55) % Monocytes % (Manual) 9 (2-12) % Eosinophils % (Manual) 4 (0-5) % Sodium 146 H (136-145) mEq/L Potassium 3.3 L (3.5-5.0) mEq/L Chloride 110 H (98-106) mEq/L Carbon Dioxide 23 (21-32) mmol/L BUN 10 (7-18) mg/dL Creatinine 0.6 (0.6-1.0) mg/dL Est Cr Clr Drug Dosing 62.83 Estimated GFR (MDRD) > 60 (>=60) mL/min Glucose 73 L (75-99) mg/dL Calcium 7.7 L (8.4-10.1) mg/dL Total Bilirubin (0.0-1.0) mg/dL AST (15-37) U/L ALT (12-78) U/L Alkaline Phosphatase (46-116) U/L C-Reactive Protein (0.2-0.8) mg/dL Total Protein (6.4-8.2) g/dL Albumin (3.4-5.0) g/dL Urine Color (YELLOW) Urine Appearance (CLEAR) Urine pH (4.5-8.0) Ur Specific [place] (1.003-1.020) Urine Protein (NEGATIVE) mg/dL Urine Glucose (UA) (NEGATIVE) mg/dL Urine Ketones (NEGATIVE) mg/dL Urine Occult Blood (NEGATIVE) Urine Nitrite (NEGATIVE) Urine Bilirubin (NEGATIVE) Urine Urobilinogen (0.2-1.0) EU/dL Ur Leukocyte Esterase (NEGATIVE) Urine RBC (0-5) /HPF Urine WBC (0-5) /HPF Amorphous Sediment (NOT SEEN) /HPF Urinalysis Comment Med Orders - Current: Current Medications Aspirin (Aspirin 81 Mg Tab.Ec) 81 mg PO DAILY [facility] Last Admin: 06/11/20 07:49 Dose: 81 mg Documented by: Carbidopa/Levodopa (Carbidopa/Levodopa 25-100 Mg Tab Pt Own) 1 tab PO DAILY@0700,1100,1500,1900 [facility] Last Admin: 06/11/20 06:27 Dose: 1 tab Documented by: Docusate Sodium (Docusate Sodium 100 Mg Cap) 100 mg PO BID PRN PRN Reason: Constipation Enoxaparin Sodium (Enoxaparin 40 Mg/0.4 Ml Syringe) 40 mg SUBCUT BEDTIME [facility] Last Admin: 06/10/20 19:55 Dose: 40 mg Documented by: Potassium Chloride/Sodium Chloride (Normal Saline With 20 Meq Kcl) 1,000 mls @ 75 mls/hr IV ASDIRECTED [facility] Last Admin: 06/11/20 03:59 Dose: 125 mls/hr Documented by: Mirtazapine (Mirtazapine 15 Mg Tab Pt Own) 15 mg PO BEDTIME [facility] Last Admin: 06/10/20 20:00 Dose: 15 mg Documented by: Omeprazole 20 Mg Tablet.Dr Pt Own* * 0 mg PO DAILY [facility] Potassium Chloride 20 Meq Tablet.Er Pt Own 0 meq PO DAILY [facility] Simvastatin (Simvastatin 20 Mg Tab Pt Own) 20 mg PO BEDTIME [facility] Last Admin: 06/10/20 20:00 Dose: 20 mg Documented by: Temazepam (Temazepam 15 Mg Cap) 15 mg PO BEDTIME PRN PRN Reason: Sleep Last Admin: 06/10/20 22:57 Dose: 15 mg Documented by: - Exam General: Alert, Cooperative, No Acute Distress Lungs: Clear to Auscultation, Normal Respiratory Effort Cardiovascular: Regular Rate, Regular Rhythm GI/Abdominal Exam: Normal Bowel Sounds, Soft, No Distention Extremities: Normal Inspection, No Pedal Edema Peripheral Pulses: 1+: Dorsalis Pedis (L), Dorsalis Pedis (R) Skin: Warm, Dry, Intact Neurological: No New Focal Deficit Psy/Mental Status: Alert, Normal Affect, Normal Mood - Patient Data Lab Results Last 24 hrs: Laboratory Results - last 24 hr 06/10/20 06/10/20 06/10/20 Range/Units 12:14 12:14 12:14 WBC 3.4 L (5.0-10.0) 10^3/uL RBC 4.89 (4.00-5.50) 10^6/uL Hgb 14.7 (12.0-16.0) g/dL Hct 43.9 (37.0-47.0) % MCV 89.8 (82.0-94.0) fL MCH 30.1 (27.0-32.0) pg MCHC 33.5 (33.0-38.0) g/dL RDW Coeff of [place] 14.4 (11.0-15.0) % Plt Count 225 (150-400) 10^3/uL Neut % (Auto) 57.3 (35-85) % Lymph % (Auto) 31.1 (10-55) % [place] % (Auto) 9.6 (0-16) % Eos % (Auto) 1.7 (0-5) % Baso % (Auto) 0.3 (0-3) % Neut # (Auto) 1.97 (1.80-7.00) 10^3/uL Lymph # (Auto) 1.07 (1.00-4.80) 10^3/uL [place] # (Auto) 0.33 (0.00-0.80) 10^3/uL Eos # (Auto) 0.06 (0.00-0.45) 10^3/uL Baso # (Auto) 0.01 10^3/uL Add Manual Diff Neutrophils % (Manual) (35-85) % Lymphocytes % (Manual) (21-55) % Monocytes % (Manual) (2-12) % Eosinophils % (Manual) (0-5) % Sodium 146 H (136-145) mEq/L Potassium 3.0 L (3.5-5.0) mEq/L Chloride 105 (98-106) mEq/L Carbon Dioxide 24 (21-32) mmol/L BUN 19 H (7-18) mg/dL Creatinine 0.7 (0.6-1.0) mg/dL Est Cr Clr Drug Dosing TNP Estimated GFR (MDRD) > 60 (>=60) mL/min Glucose 95 (75-99) mg/dL Calcium 9.0 (8.4-10.1) mg/dL Total Bilirubin 0.7 (0.0-1.0) mg/dL AST 16 (15-37) U/L ALT 13 (12-78) U/L Alkaline Phosphatase 57 (46-116) U/L C-Reactive Protein < 0.2 L (0.2-0.8) mg/dL Total Protein 6.6 (6.4-8.2) g/dL Albumin 3.7 (3.4-5.0) g/dL Urine Color Dark yellow (YELLOW) Urine Appearance Turbid (CLEAR) Urine pH 6.5 (4.5-8.0) Ur Specific [place] >= 1.030 H (1.003-1.020) Urine Protein 30 H (NEGATIVE) mg/dL Urine Glucose (UA) Negative (NEGATIVE) mg/dL Urine Ketones 80 H (NEGATIVE) mg/dL Urine Occult Blood Trace-lysed H (NEGATIVE) Urine Nitrite Negative (NEGATIVE) Urine Bilirubin Moderate H (NEGATIVE) Urine Urobilinogen 1.0 (0.2-1.0) EU/dL Ur Leukocyte Esterase Negative (NEGATIVE) Urine RBC 0-5 (0-5) /HPF Urine WBC 0-5 (0-5) /HPF Amorphous Sediment Many H (NOT SEEN) /HPF Urinalysis Comment 06/11/20 06/11/20 Range/Units 07:20 07:20 WBC 3.1 L (5.0-10.0) 10^3/uL RBC 3.93 L (4.00-5.50) 10^6/uL Hgb 11.7 L (12.0-16.0) g/dL Hct 36.4 L (37.0-47.0) % MCV 92.6 (82.0-94.0) fL MCH 29.8 (27.0-32.0) pg MCHC 32.1 L (33.0-38.0) g/dL RDW Coeff of [place] 14.5 (11.0-15.0) % Plt Count 183 (150-400) 10^3/uL Neut % (Auto) (35-85) % Lymph % (Auto) (10-55) % [place] % (Auto) (0-16) % Eos % (Auto) (0-5) % Baso % (Auto) (0-3) % Neut # (Auto) (1.80-7.00) 10^3/uL Lymph # (Auto) (1.00-4.80) 10^3/uL [place] # (Auto) (0.00-0.80) 10^3/uL Eos # (Auto) (0.00-0.45) 10^3/uL Baso # (Auto) 10^3/uL Add Manual Diff Yes Neutrophils % (Manual) 31 L (35-85) % Lymphocytes % (Manual) 56 H (21-55) % Monocytes % (Manual) 9 (2-12) % Eosinophils % (Manual) 4 (0-5) % Sodium 146 H (136-145) mEq/L Potassium 3.3 L (3.5-5.0) mEq/L Chloride 110 H (98-106) mEq/L Carbon Dioxide 23 (21-32) mmol/L BUN 10 (7-18) mg/dL Creatinine 0.6 (0.6-1.0) mg/dL Est Cr Clr Drug Dosing 62.83 Estimated GFR (MDRD) > 60 (>=60) mL/min Glucose 73 L (75-99) mg/dL Calcium 7.7 L (8.4-10.1) mg/dL Total Bilirubin (0.0-1.0) mg/dL AST (15-37) U/L ALT (12-78) U/L Alkaline Phosphatase (46-116) U/L C-Reactive Protein (0.2-0.8) mg/dL Total Protein (6.4-8.2) g/dL Albumin (3.4-5.0) g/dL Urine Color (YELLOW) Urine Appearance (CLEAR) Urine pH (4.5-8.0) Ur Specific [place] (1.003-1.020) Urine Protein (NEGATIVE) mg/dL Urine Glucose (UA) (NEGATIVE) mg/dL Urine Ketones (NEGATIVE) mg/dL Urine Occult Blood (NEGATIVE) Urine Nitrite (NEGATIVE) Urine Bilirubin (NEGATIVE) Urine Urobilinogen (0.2-1.0) EU/dL Ur Leukocyte Esterase (NEGATIVE) Urine RBC (0-5) /HPF Urine WBC (0-5) /HPF Amorphous Sediment (NOT SEEN) /HPF Urinalysis Comment Result Diagrams: 06/11/20 07:20 06/11/20 07:20 Sepsis Event Note - Evaluation Sepsis Screening Result: No Definite Risk - Focused Exam Vital Signs: Vital Signs Temp Pulse Resp BP Pulse Ox 06/11/20 07:47 98.1 F 83 18 153/92 H 97 06/11/20 04:00 96.9 F 66 16 103/62 95 06/10/20 23:47 99.1 F 87 18 143/72 H 99 - Problem List & Annotations (1) Hypokalemia SNOMED Code(s): 28239887 Code(s): E87.6 - HYPOKALEMIA Status: Acute Current Visit: Yes (2) Dehydration SNOMED Code(s): 42704795 Code(s): E86.0 - DEHYDRATION Status: Acute Current Visit: Yes - Problem List Review Problem List Initiated/Reviewed/Updated: Yes - My Orders Last 24 Hours: My Active Orders 06/10/20 13:15 NS + KCl 20mEq/L [Normal Saline with 20 mEq KCl] 1,000 ml IV ASDIRECTED 06/10/20 14:29 Resuscitation Status Routine 06/10/20 15:00 Docusate Sodium [Colace] 100 mg PO BID PRN 06/10/20 15:08 Patient Status [ADT] Routine Cardiac Monitoring [RC] 08,1999 Oxygen Therapy [RC] .PRN Up With Assistance [RC] .PRN Vital Signs [RC] 0000,0400,0800,1200,1600,2000 06/10/20 Dinner Regular Diet [DIET] 06/10/20 19:00 Carbidopa/Levodopa [Sinemet 25-100 mg] 1 tab PO DAILY@0700,1100,1500,1900 06/10/20 20:00 Enoxaparin [Lovenox] 40 mg SUBCUT BEDTIME Mirtazapine [Remeron] 15 mg PO BEDTIME Simvastatin [Zocor] 20 mg PO BEDTIME 06/10/20 22:19 Temazepam [Restoril] 15 mg PO BEDTIME PRN 06/11/20 02:14 Antiembolic Devices [RC] 1000,2200 06/11/20 08:00 Aspirin [Halfprin] 81 mg PO DAILY Omeprazole [Omeprazole] 0 mg PO DAILY Potassium Chloride [Potassium Chloride] 0 meq PO DAILY 06/11/20 09:57 PT Evaluation and Treatment [CONS] Routine - Plan Plan:: Potassium slightly improved today to 3.3. is present and feels Marielle is doing a lot better. She continues to not have much of an appetite and doesn't feel like drinking a lot. Discussed diet with Marielle and importance of caloric intake and fluids. Will have PT evaluate today. IV fluids decreased to 75ml/hr. Will plan for discharge tomorrow. discussed home health with Marielle and her which they are agreeable to.
[2020-06-11] MEDS: Potassium Chloride 10% 20 MEQ/15 ML Soln 15 ML UD Cup PO SCH (11:12)
[2020-06-11] MEDS: Enoxaparin 40 MG/0.4 ML Syringe SUBCUT SCH (19:48)
[2020-06-11] MEDS: MIRTAZAPINE 15 MG PO SCH (19:49)
[2020-06-11] MEDS: SIMVASTATIN 20 MG PO SCH (19:49)
[2020-06-11] MEDS: Temazepam 15 MG Cap PO PRN (20:31)
[2020-06-12] MEDS: NS + KCl 20mEq/L 1,000 ML IV SCH (03:30)
[2020-06-12] MEDS: LEVODOPA PO SCH ×4 (06:37→20:54)
[2020-06-12] MEDS: CARBIDOPA PO SCH ×4 (06:37→20:54)
[2020-06-12] MEDS: Aspirin 81 MG Tab.EC PO SCH (08:12)
[2020-06-12] MEDS: Potassium Chloride 10% 20 MEQ/15 ML Soln 15 ML UD Cup PO SCH (08:12)
[2020-06-12 09:05] LABS: CHLORIDE,CL 110 mEq/L (98-106); SODIUM,NA 145 mEq/L (136-145)
[2020-06-12] MEDS ORDERED: Bisacodyl 10 MG Supp RECTAL ONE (11:05)
--- NOTE | 2020-06-12 15:13 | PCM.PN ---
- General Info Date of Service: 06/12/20 Subjective Update: 06/11/2020 Marielle is a 75 yo female who was admitted to the hospital yesterday from the ED with weakness and dehydration. Patient has not had an appetite lately and admitted she doesn't drink very much fluids. States he does harp on her all the time about drinking fluids and eating. She states today she is feeling better. Continues to have a dry mouth. Has been up to the bathroom without difficulty. Denies any new onset of symptoms. 06/12/2020 Marielle is not feeling well upon my arrival this morning. is present. She is complaining of abdominal pain and stating she has to go to the bathroom. Nursing staff did help patient to the bathroom. She was unable to have a bowel movement. Patient given a suppository. Nursing staff do state concerns of dementia and being alone. Patient has had multiple falls in the last month. She does care for herself in the morning until her gets home from work at noon. Functional Status: Reports: Ambulating, Urinating. Denies: Tolerating Diet - Review of Systems General: Reports: Fatigue HEENT: Reports: No Symptoms Pulmonary: Reports: No Symptoms Cardiovascular: Reports: No Symptoms Gastrointestinal: Reports: Abdominal Pain, Constipation. Denies: Diarrhea, Nausea, Vomiting Genitourinary: Reports: No Symptoms Skin: Reports: No Symptoms Neurological: Reports: Confusion, Pre-Existing Deficit. Denies: Dizziness, Headache - Patient Data Vitals - Most Recent: Last Vital Signs Temp 97.6 F 06/12/20 12:00 Pulse 75 06/12/20 12:00 Resp 18 06/12/20 12:00 BP 128/64 06/12/20 12:00 Pulse Ox 96 06/12/20 12:00 Weight - Most Recent: 110 lb I&O - Last 24 Hours: Intake & Output 06/12/20 06/12/20 06/12/20 06:59 14:59 22:59 Intake Total 1000 Balance 1000 Lab Results Last 24 Hours: Laboratory Results - last 24 hr 06/12/20 06/12/20 Range/Units 08:51 08:51 WBC 3.4 L (5.0-10.0) 10^3/uL RBC 4.42 (4.00-5.50) 10^6/uL Hgb 13.1 (12.0-16.0) g/dL Hct 40.5 (37.0-47.0) % MCV 91.6 (82.0-94.0) fL MCH 29.6 (27.0-32.0) pg MCHC 32.3 L (33.0-38.0) g/dL RDW Coeff of [place] 14.7 (11.0-15.0) % Plt Count 203 (150-400) 10^3/uL Neut % (Auto) 33.2 L (35-85) % Lymph % (Auto) 49.3 (10-55) % [place] % (Auto) 10.8 (0-16) % Eos % (Auto) 6.4 H (0-5) % Baso % (Auto) 0.3 (0-3) % Neut # (Auto) 1.14 L (1.80-7.00) 10^3/uL Lymph # (Auto) 1.69 (1.00-4.80) 10^3/uL [place] # (Auto) 0.37 (0.00-0.80) 10^3/uL Eos # (Auto) 0.22 (0.00-0.45) 10^3/uL Baso # (Auto) 0.01 10^3/uL Sodium 145 (136-145) mEq/L Potassium 4.1 D (3.5-5.0) mEq/L Chloride 110 H (98-106) mEq/L Carbon Dioxide 22 (21-32) mmol/L BUN 5 L (7-18) mg/dL Creatinine 0.5 L (0.6-1.0) mg/dL Est Cr Clr Drug Dosing 75.40 mL/min Estimated GFR (MDRD) > 60 (>=60) mL/min Glucose 103 H D (75-99) mg/dL Calcium 8.5 (8.4-10.1) mg/dL Med Orders - Current: Current Medications Aspirin (Aspirin 81 Mg Tab.Ec) 81 mg PO DAILY [facility] Last Admin: 06/12/20 08:12 Dose: 81 mg Documented by: Carbidopa/Levodopa (Carbidopa/Levodopa 25-100 Mg Tab Pt Own) 1 tab PO DAILY@0700,1100,1500,1900 [facility] [place] Last Admin: 06/12/20 14:59 Dose: 1 tab Documented by: Docusate Sodium (Docusate Sodium 100 Mg Cap) 100 mg PO BID PRN PRN Reason: Constipation Enoxaparin Sodium (Enoxaparin 40 Mg/0.4 Ml Syringe) 40 mg SUBCUT BEDTIME [facility] [place] Last Admin: 06/11/20 19:48 Dose: 40 mg Documented by: Potassium Chloride/Sodium Chloride (Normal Saline With 20 Meq Kcl) 1,000 mls @ 75 mls/hr IV ASDIRECTED [facility] [place] Last Admin: 06/12/20 03:30 Dose: 75 mls/hr Documented by: Mirtazapine (Mirtazapine 15 Mg Tab Pt Own) 15 mg PO BEDTIME [facility] [place] Last Admin: 06/11/20 19:49 Dose: 15 mg Documented by: Omeprazole 20 Mg Tablet.Dr Pt Own* * 0 mg PO DAILY [facility] [place] Potassium Chloride (Potassium Chloride 10% 20 Meq/15 Ml Soln 15 Ml Ud Cup) 20 meq PO DAILY [facility] [place] Last Admin: 06/12/20 08:12 Dose: 20 meq Documented by: Simvastatin (Simvastatin 20 Mg Tab Pt Own) 20 mg PO BEDTIME [facility] [place] Last Admin: 06/11/20 19:49 Dose: 20 mg Documented by: Temazepam (Temazepam 15 Mg Cap) 15 mg PO BEDTIME PRN PRN Reason: Sleep Last Admin: 06/11/20 20:31 Dose: 15 mg Documented by: Discontinued Medications Bisacodyl (Bisacodyl 10 Mg Supp) 10 mg RECTAL ONETIME ONE Stop: 06/12/20 11:06 Last Admin: 06/12/20 11:00 Dose: 10 mg Documented by: Potassium Chloride 20 Meq Tablet.Er Pt Own 0 meq PO DAILY [facility] [place] Last Admin: 06/11/20 11:13 Dose: Not Given Documented by: - Exam General: Alert, Cooperative Lungs: Clear to Auscultation, Normal Respiratory Effort Cardiovascular: Regular Rhythm, Tachycardia GI/Abdominal Exam: Normal Bowel Sounds, Soft, No Organomegaly, No Distention Skin: Warm, Dry, Intact Psy/Mental Status: Alert, Normal Mood, Anxious - Patient Data Lab Results Last 24 hrs: Laboratory Results - last 24 hr 06/12/20 06/12/20 Range/Units 08:51 08:51 WBC 3.4 L (5.0-10.0) 10^3/uL RBC 4.42 (4.00-5.50) 10^6/uL Hgb 13.1 (12.0-16.0) g/dL Hct 40.5 (37.0-47.0) % MCV 91.6 (82.0-94.0) fL MCH 29.6 (27.0-32.0) pg MCHC 32.3 L (33.0-38.0) g/dL RDW Coeff of [place] 14.7 (11.0-15.0) % Plt Count 203 (150-400) 10^3/uL Neut % (Auto) 33.2 L (35-85) % Lymph % (Auto) 49.3 (10-55) % [place] % (Auto) 10.8 (0-16) % Eos % (Auto) 6.4 H (0-5) % Baso % (Auto) 0.3 (0-3) % Neut # (Auto) 1.14 L (1.80-7.00) 10^3/uL Lymph # (Auto) 1.69 (1.00-4.80) 10^3/uL [place] # (Auto) 0.37 (0.00-0.80) 10^3/uL Eos # (Auto) 0.22 (0.00-0.45) 10^3/uL Baso # (Auto) 0.01 10^3/uL Sodium 145 (136-145) mEq/L Potassium 4.1 D (3.5-5.0) mEq/L Chloride 110 H (98-106) mEq/L Carbon Dioxide 22 (21-32) mmol/L BUN 5 L (7-18) mg/dL Creatinine 0.5 L (0.6-1.0) mg/dL Est Cr Clr Drug Dosing 75.40 mL/min Estimated GFR (MDRD) > 60 (>=60) mL/min Glucose 103 H D (75-99) mg/dL Calcium 8.5 (8.4-10.1) mg/dL Result Diagrams: 06/12/20 08:51 06/12/20 08:51 Sepsis Event Note - Evaluation Sepsis Screening Result: No Definite Risk - Focused Exam Vital Signs: Vital Signs Temp Pulse Resp BP Pulse Ox 06/12/20 12:00 97.6 F 75 18 128/64 96 04/29/21 08:00 98 F 76 18 108/62 96 - Problem List & Annotations (1) Hypokalemia SNOMED Code(s): 72713626 Code(s): E87.6 - HYPOKALEMIA Status: Acute Current Visit: Yes (2) Dehydration SNOMED Code(s): 64482639 Code(s): E86.0 - DEHYDRATION Status: Acute Current Visit: Yes (3) Chronic confusion SNOMED Code(s): 915762889 Code(s): R41.0 - DISORIENTATION, UNSPECIFIED Status: Acute Current Visit: Yes - Problem List Review Problem List Initiated/Reviewed/Updated: Yes - Plan Plan:: Potassium slightly improved today to 3.3. is present and feels Marielle is doing a lot better. She continues to not have much of an appetite and doesn't feel like drinking a lot. Discussed diet with Marielle and importance of caloric intake and fluids. Will have PT evaluate today. IV fluids decreased to 75ml/hr. Will plan for discharge tomorrow. discussed home health with Marielle and her which they are agreeable to. 06/12/2020 Patient given suppository for abdominal pain. Patient did have large bowel movement with no further complaints of discomfort. Patient shows obvious anxiety when is not around. She has been ambulatory with nurse walking the hallways with a steady gait. Discussed with Becka Long about 24 hr cares after discharge. I am concerned of patient safety while caring for self. Will switch to acute status today. CBC and BMP stable today. Will reevaluate in am.
[2020-06-12] MEDS ORDERED: Mirtazapine 15 MG Tab PO SCH (20:00)
[2020-06-12] MEDS ORDERED: Simvastatin 20 MG Tab PO SCH (20:00)
[2020-06-12] MEDS: Enoxaparin 40 MG/0.4 ML Syringe SUBCUT SCH (20:54)
[2020-06-12] MEDS: Temazepam 15 MG Cap PO PRN (21:27)
[2020-06-13] MEDS: CARBIDOPA PO SCH (06:21)
[2020-06-13] MEDS: LEVODOPA PO SCH (06:21)
[2020-06-13] MEDS ORDERED: Pantoprazole 40 MG Tab.CR PO SCH (07:00)
[2020-06-13] MEDS: Aspirin 81 MG Tab.EC PO SCH (07:50)
[2020-06-13] MEDS: Potassium Chloride 10% 20 MEQ/15 ML Soln 15 ML UD Cup PO SCH (07:50)
[2020-06-13 09:14] VITALS: BP 118/62; PULSE 88
--- NOTE | 2020-06-13 17:44 | PCM.DCSUM1 ---
Discharge Summary - Hospital Course HPI Initial Comments: Marielle is a 75 yo female who was admitted to the hospital on the 10 of June from the ED with weakness and dehydration. Patient has not had an appetite lately and admitted she doesn't drink very much fluids. Patient has known dementia as it at home alone in the mornings. 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 Diagnosis: Stroke: No - Discharge Data Discharge Date: 06/13/20 Discharge Disposition: Home, W Home Health Agency 06 Condition: Good - Referral to Home Health Date of Face to Face Encounter: 06/13/20 Reason for Homebound Status: Inability to drive due to weakness and dementia Primary Care Physician: Bharat Jamil MD Skilled Need: Nursing for medications. Physical therapy for strengthening. Occupational therapy for ADL's. - Discharge Diagnosis/Problem(s) (1) Hypokalemia SNOMED Code(s): 82409345 ICD Code: E87.6 - HYPOKALEMIA Status: Resolved (2) Dehydration SNOMED Code(s): 92076968 ICD Code: E86.0 - DEHYDRATION Status: Resolved (3) Chronic confusion SNOMED Code(s): 742508392 ICD Code: R41.0 - DISORIENTATION, UNSPECIFIED Status: Chronic - Patient Summary/Data Consults: Consultations 06/11/20 09:57 PT Evaluation and Treatment [CONS] Routine - Patient Instructions Diet: Usual Diet as Tolerated Activity: As Tolerated - Discharge Plan *PRESCRIPTION DRUG MONITORING PROGRAM REVIEWED*: Not Applicable *COPY OF PRESCRIPTION DRUG MONITORING REPORT IN PATIENT FLO: Not Applicable Home Medications: Home Meds Cholecalciferol (Vitamin D3) [Vitamin D3] 5,000 unit PO DAILY 10/30/13 [History] Multivitamin with Minerals [Multiple Vitamin] 1 tab PO DAILY 10/30/13 [History] Simvastatin [Zocor] 20 mg PO DAILY 10/30/13 [History] Aspirin [Adult Low Dose Aspirin EC] 81 mg PO DAILY 04/30/14 [History] Carbidopa/Levodopa [Carbidopa-Levodopa 25-100 Tab] 1 each PO QID 02/16/19 [History] Omeprazole 20 mg PO DAILY 02/16/19 [History] Denosumab [Prolia] 60 mg SUBCUT ASDIRECTED 08/23/19 [History] Mirtazapine 15 mg PO BEDTIME 03/27/20 [History] Potassium Chloride 40 meq PO DAILY #14 tablet.er 04/25/20 [Rx] Docusate Sodium [Colace] 100 mg PO BID PRN cap 06/13/20 [Rx] Oxygen Therapy Mode: Room Air Patient Handouts: Hypokalemia, Dehydration, Adult, [id number] Forms: ED Department Discharge Referrals: Bharat Jamil MD [Primary Care Provider] - (2 weeks) - Discharge Summary/Plan Comment DC Time >30 min.: Yes Discharge Summary/Plan Comment: Will discharge home in the care of daughter and today. Plan for home health. Gladys will stay home at this time to help with 24 hr assistance. Marielle is excited to go home at this time. Is up and dressed and waiting to be discharged. No changes in medications, plan to resume current medications. Will have her follow up with Dr. Jamil in 2 weeks. - General Info Date of Service: 06/13/20 Subjective Update: 06/11/2020 Marielle is a 75 yo female who was admitted to the hospital yesterday from the ED with weakness and dehydration. Patient has not had an appetite lately and admitted she doesn't drink very much fluids. States he does harp on her all the time about drinking fluids and eating. She states today she is feeling better. Continues to have a dry mouth. Has been up to the bathroom without difficulty. Denies any new onset of symptoms. 06/12/2020 Marielle is not feeling well upon my arrival this morning. is present. She is complaining of abdominal pain and stating she has to go to the bathroom. Nursing staff did help patient to the bathroom. She was unable to have a bowel movement. Patient given a suppository. Nursing staff do state concerns of dementia and being alone. Patient has had multiple falls in the last month. She does care for herself in the morning until her gets home from work at noon. 06/13/2020 Marielle is in good spirits this morning and states she is ready to go home. and daughter are present in the room. They state they have moved her bed and TV down to the main floor of the house to make it easier for her. She has no further complaints of abdominal discomfort. She states she is feeling well today. Did discuss home health, which family is in agreement at this time. - Review of Systems General: Reports: No Symptoms HEENT: Reports: No Symptoms Pulmonary: Reports: No Symptoms Cardiovascular: Reports: No Symptoms Gastrointestinal: Reports: No Symptoms Genitourinary: Reports: No Symptoms Musculoskeletal: Reports: No Symptoms Skin: Reports: No Symptoms Neurological: Reports: Pre-Existing Deficit - Patient Data Vitals - Most Recent: Last Vital Signs Temp 98 F 06/13/20 08:00 Pulse 88 06/13/20 08:00 Resp 18 06/13/20 08:00 BP 118/62 06/13/20 08:00 Pulse Ox 98 06/13/20 08:00 Weight - Most Recent: 110 lb Med Orders - Current: Current Medications Discontinued Medications Aspirin (Aspirin 81 Mg Tab.Ec) 81 mg PO DAILY [facility] Last Admin: 06/13/20 07:50 Dose: 81 mg Documented by: Bisacodyl (Bisacodyl 10 Mg Supp) 10 mg RECTAL ONETIME ONE Stop: 06/12/20 11:06 Last Admin: 06/12/20 11:00 Dose: 10 mg Documented by: Carbidopa/Levodopa (Carbidopa/Levodopa 25-100 Mg Tab Pt Own) 1 tab PO DAILY@0700,1100,1500,1900 [facility] Last Admin: 06/13/20 06:21 Dose: 1 tab Documented by: Docusate Sodium (Docusate Sodium 100 Mg Cap) 100 mg PO BID PRN PRN Reason: Constipation Enoxaparin Sodium (Enoxaparin 40 Mg/0.4 Ml Syringe) 40 mg SUBCUT BEDTIME [facility] Last Admin: 06/12/20 20:54 Dose: 40 mg Documented by: Potassium Chloride/Sodium Chloride (Normal Saline With 20 Meq Kcl) 1,000 mls @ 75 mls/hr IV ASDIRECTED [facility] Last Admin: 06/12/20 03:30 Dose: 75 mls/hr Documented by: Mirtazapine (Mirtazapine 15 Mg Tab Pt Own) 15 mg PO BEDTIME [facility] Last Admin: 06/11/20 19:49 Dose: 15 mg Documented by: Mirtazapine (Mirtazapine 15 Mg Tab) 15 mg PO BEDTIME [facility] Last Admin: 06/12/20 20:54 Dose: 15 mg Documented by: Potassium Chloride 20 Meq Tablet.Er Pt Own 0 meq PO DAILY [facility] Last Admin: 06/11/20 11:13 Dose: Not Given Documented by: Pantoprazole Sodium (Pantoprazole 40 Mg Tab.Cr) 40 mg PO ACBREAKFAST [facility] Last Admin: 06/13/20 06:21 Dose: 40 mg Documented by: Potassium Chloride (Potassium Chloride 10% 20 Meq/15 Ml Soln 15 Ml Ud Cup) 20 meq PO DAILY [facility] Last Admin: 06/13/20 07:50 Dose: 20 meq Documented by: Simvastatin (Simvastatin 20 Mg Tab Pt Own) 20 mg PO BEDTIME [facility] Last Admin: 06/11/20 19:49 Dose: 20 mg Documented by: Simvastatin (Simvastatin 20 Mg Tab) 20 mg PO BEDTIME [facility] Last Admin: 06/12/20 20:54 Dose: 20 mg Documented by: Temazepam (Temazepam 15 Mg Cap) 15 mg PO BEDTIME PRN PRN Reason: Sleep Last Admin: 06/12/20 21:27 Dose: 15 mg Documented by: - Exam General: Reports: Alert, Cooperative Lungs: Reports: Clear to Auscultation, Normal Respiratory Effort Cardiovascular: Reports: Regular Rate, Regular Rhythm GI/Abdominal Exam: Normal Bowel Sounds, Soft, Non-Tender Extremities: Normal Inspection, No Pedal Edema Skin: Reports: Warm, Dry, Intact Neurological: Reports: No New Focal Deficit Psy/Mental Status: Reports: Alert, Normal Affect, Normal Mood
== END 2020-06-13 10:30 | disposition home health service (06) | DRG 641 ==
LOC: CC.ED 12:03 → UNDOADMOB 13:49 → CC.MS 13:49 → OBSVTOIN 06-12 17:03
PROVIDERS: ADMIT Physician Assistant Medical; ATTEND Family Medicine
DX: E87.6 Hypokalemia (principal); E86.0 Dehydration; E78.00 Pure hypercholesterolemia, unspecified; H54.7 Unspecified visual loss; K59.09 Other constipation; K21.9 Gastro-esophageal reflux disease without esophagitis; M19.90 Unspecified osteoarthritis, unspecified site; M81.0 Age-related osteoporosis without current pathological fracture; G20 Parkinson's disease; F02.80 Dementia in other diseases classified elsewhere, unspecified severity, without behavioral disturbance, psychotic disturbance, mood disturbance, and anxiety; F32.9 Major depressive disorder, single episode, unspecified; E55.9 Vitamin D deficiency, unspecified; H91.90 Unspecified hearing loss, unspecified ear; Z87.11 Personal history of peptic ulcer disease; E61.1 Iron deficiency; Z90.49 Acquired absence of other specified parts of digestive tract; Z91.81 History of falling; Z98.51 Tubal ligation status; Z79.82 Long term (current) use of aspirin; Z79.899 Other long term (current) drug therapy
CPT/HCPCS: 36415; 80048; 80053; 81001; 85025; 86140; 97116-GP; 97161-GP; A9270-GY; J1650; J3480

== ENCOUNTER 2020-09-25 15:21 | Emergency (ER) | payer MEDICARE ==
[2020-09-25 15:37] VITALS: PULSE 100
[2020-09-25 15:57] LABS: CHLORIDE,CL 108 mEq/L (98-106); SODIUM,NA 143 mEq/L (136-145)
[2020-09-25] MEDS: Sodium Chloride 0.9% 500 ML IV SCH (16:11)
--- NOTE | 2020-09-25 16:13 | EDM.PDOC ---
ED HPI GENERAL MEDICAL PROBLEM - General Chief Complaint: General Stated Complaint: LOSS OF BLOOD PRESSURE Time Seen by Provider: 09/25/20 16:01 Source of Information: Reports: Patient, Family (), RN History Limitations: Reports: Altered Mental Status - History of Present Illness INITIAL COMMENTS - FREE TEXT/NARRATIVE: Pt is known to have alzheimers. states that she would stand up and then she would get pale and seem like she was going to pass out and he would grab her and sit her back down and she would be ok again. He admits that she doesn't drink much unless he gives it to her. He denies that she has fallen. He states that she needs encouragement to remember to swallow and drink but doesn't choke when she does. Onset: Gradual Associated Symptoms: Reports: Syncope - Related Data Allergies Allergy/AdvReac Type Severity Reaction Status Date / Time No Known Allergies Allergy Verified 09/25/20 15:33 Home Meds: Home Meds Cholecalciferol (Vitamin D3) [Vitamin D3] 5,000 unit PO DAILY 10/30/13 [History] Multivitamin with Minerals [Multiple Vitamin] 1 tab PO DAILY 10/30/13 [History] Simvastatin [Zocor] 20 mg PO DAILY 10/30/13 [History] Aspirin [Adult Low Dose Aspirin EC] 81 mg PO DAILY 04/30/14 [History] Carbidopa/Levodopa [Carbidopa-Levodopa 25-100 Tab] 1 each PO QID 02/16/19 [History] Omeprazole 20 mg PO DAILY 02/16/19 [History] Denosumab [Prolia] 60 mg SUBCUT ASDIRECTED 08/23/19 [History] Mirtazapine 15 mg PO BEDTIME 03/27/20 [History] Potassium Chloride 40 meq PO DAILY #14 tablet.er 04/25/20 [Rx] Docusate Sodium [Colace] 100 mg PO BID PRN cap 06/13/20 [Rx] Past Medical History HEENT History: Reports: Hard of Hearing Cardiovascular History: Reports: High Cholesterol Gastrointestinal History: Reports: Chronic Constipation, GERD, PUD Genitourinary History: Reports: Other (See Below) Other Genitourinary History: hematuria 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: Musculoskeletal History: Reports: Arthritis, Osteoporosis Neurological History: Reports: Parkinson's Psychiatric History: Reports: Depression Endocrine/Metabolic History: Reports: Vitamin D Deficiency Hematologic History: Reports: Iron Deficiency - Past Surgical History HEENT Surgical History: Reports: None Other HEENT Surgeries/Procedures: lens replaced Cardiovascular Surgical History: Reports: None GI Surgical History: Reports: Appendectomy Female Surgical History: Reports: Tubal Ligation Endocrine Surgical History: Reports: None Neurological Surgical History: Reports: None Musculoskeletal Surgical History: Reports: None Social & Family History - Family History Family Medical History: No Pertinent Family History - Tobacco Use Tobacco Use Status *Q: Never Tobacco User - Caffeine Use Caffeine Use: Reports: None - Recreational Drug Use Recreational Drug Use: No - Living Situation & Occupation Living situation: Reports: , with Spouse Occupation: Employed ED ROS GENERAL - Review of Systems Review Of Systems: Unable To Obtain Reason Not Obtained: Pt can not answer the questions appropriately. ED EXAM, GENERAL - Physical Exam Exam: See Below Exam Limited By: Altered Mental Status General Appearance: Alert, No Apparent Distress Ears: Normal External Exam, Normal Canal, Normal TMs Throat/Mouth: Normal Inspection, Normal Oropharynx Head: Atraumatic, Normocephalic Neck: Normal Inspection, Supple Respiratory/Chest: No Respiratory Distress, Lungs Clear Cardiovascular: Normal Peripheral Pulses, Regular Rate, Rhythm GI/Abdominal: Normal Bowel Sounds, Soft, Non-Tender Back Exam: Normal Inspection Extremities: Normal Inspection, Normal Capillary Refill Neurological: Alert, Confused Skin Exam: Warm, Dry, Intact Course - Vital Signs Last Recorded V/S: Last Vital Signs Temp 98.7 F 09/25/20 15:35 Pulse 100 09/25/20 15:35 Resp 16 09/25/20 15:35 BP 131/84 09/25/20 15:35 Pulse Ox 96 09/25/20 15:35 - Orders/Labs/Meds Orders: Active Orders 24 hr Category Date Time Status UA W/MICROSCOPIC [URIN] Stat Lab 09/25/20 15:43 Ordered Sodium Chloride 0.9% [Normal Saline] 500 ml Med 09/25/20 16:15 Ordered IV ASDIRECTED Medication Orders Sodium Chloride (Normal Saline) 500 mls @ 999 mls/hr IV ASDIRECTED [facility] Last Admin: 09/25/20 16:11 Dose: 999 mls/hr Documented by: Labs: Laboratory Tests 09/25/20 09/25/20 Range/Units 15:48 15:48 WBC 6.3 (4.0-11.0) 10^3/uL RBC 4.66 (4.00-5.50) x10^6/uL Hgb 14.1 (12.0-16.0) g/dL Hct 42.7 (37.0-47.0) % MCV 91.6 (83.0-97.0) fL MCH 30.3 (27.0-32.0) pg MCHC 33.0 (32.0-36.0) g/dL RDW Coeff of Catrina 13.1 (11.0-15.0) % Plt Count 276 (150-400) 10^3/uL Immature Gran % (Auto) 0.2 (0.0-4.9) % Neut % (Auto) 52.0 (41-71) % Lymph % (Auto) 36.3 (24-44) % Snyder % (Auto) 9.0 (0-10) % Eos % (Auto) 2.2 (0-6) % Baso % (Auto) 0.3 (0-1) % Neut # (Auto) 3.28 (1.80-8.00) x10^3/uL Lymph # (Auto) 2.29 (0.60-5.00) 10^3/uL Snyder # (Auto) 0.57 (0.00-1.50) 10^3/uL Eos # (Auto) 0.14 (0.00-1.50) 10^3/uL Baso # (Auto) 0.02 (0.00-0.50) 10^3/uL Immature Gran # (Auto) 0.01 (0.00-0.49) 10^3/uL Sodium 143 (136-145) mEq/L Potassium 3.6 (3.5-5.0) mEq/L Chloride 108 H (98-106) mEq/L Carbon Dioxide 22 (21-32) mmol/L BUN 25 H D (7-18) mg/dL Creatinine 0.8 D (0.6-1.0) mg/dL Est Cr Clr Drug Dosing 45.41 mL/min Estimated GFR (MDRD) > 60 (>=60) mL/min Glucose 125 H (75-99) mg/dL Calcium 8.9 (8.4-10.1) mg/dL Meds: Medications Generic Name Dose Route Start Last Admin Trade Name Freq PRN Reason Stop Dose Admin Sodium Chloride 500 mls @ 999 mls/hr 09/25/20 16:15 09/25/20 16:11 Normal Saline IV 999 mls/hr ASDIRECTED [facility] Administration - Re-Assessments/Exams Free Text/Narrative Re-Assessment/Exam: 09/25/20 16:55 IV is infused and BP is stable. will discharge at this time. Discussed that her labs are normal at this time. Departure - Departure Time of Disposition: 16:56 Disposition: Home, Self-Care 01 Condition: Fair Clinical Impression: Dehydration symptoms - Discharge Information *PRESCRIPTION DRUG MONITORING PROGRAM REVIEWED*: Not Applicable *COPY OF PRESCRIPTION DRUG MONITORING REPORT IN PATIENT FLO: Not Applicable Forms: ED Department Discharge Additional Instructions: Push fluids on a daily basis. Offer her fluids at least every 2 hours during the day when standing she needs to wait a few seconds to get her balance before walking recheck in the clinic for new concerns. Sepsis Event Note (ED) - Evaluation Sepsis Screening Result: No Definite Risk - Focused Exam Vital Signs: Vital Signs Temp Pulse Resp BP Pulse Ox 09/25/20 15:35 98.7 F 100 16 131/84 96 - Problem List & Annotations (1) Dehydration symptoms SNOMED Code(s): 971055373 Code(s): R63.8 - OTHER SYMPTOMS AND SIGNS CONCERNING FOOD AND FLUID INTAKE Status: Acute Priority: High - Problem List Review Problem List Initiated/Reviewed/Updated: Yes - My Orders Last 24 Hours: My Active Orders 09/25/20 15:43 UA W/MICROSCOPIC [URIN] Stat 09/25/20 16:15 Sodium Chloride 0.9% [Normal Saline] 500 ml IV ASDIRECTED - Assessment/Plan Last 24 Hours: My Active Orders 09/25/20 15:43 UA W/MICROSCOPIC [URIN] Stat 09/25/20 16:15 Sodium Chloride 0.9% [Normal Saline] 500 ml IV ASDIRECTED
[2020-09-25 17:01] VITALS: BP 142/96
== END 2020-09-25 17:10 | disposition home or self-care (01) ==
LOC: CC.ED 15:21
DX: E86.0 Dehydration (principal); K21.9 Gastro-esophageal reflux disease without esophagitis; Z79.899 Other long term (current) drug therapy
CPT/HCPCS: 36415; 80048; 85025; 99284; J7040; 99283

== ENCOUNTER 2020-12-09 13:55 | Emergency (ER) | payer MEDICARE ==
[2020-12-09 14:10] VITALS: BP 120/73; PULSE 94
--- NOTE | 2020-12-09 14:58 | EDM.PDOC ---
ED HPI GENERAL MEDICAL PROBLEM - General Chief Complaint: Gastrointestinal Problem Stated Complaint: CONSTIPATION Time Seen by Provider: 12/09/20 14:25 Source of Information: Reports: Patient, Family History Limitations: Reports: Altered Mental Status (dementia) - History of Present Illness INITIAL COMMENTS - FREE TEXT/NARRATIVE: Marielle is a 75 yo female who is brought into the ED by her with concerns of constipation. Marielle has history of constipation. Her admits she has been giving her a laxative. Last bowel movement was yesterday. Denies any discomfort presently. Is still able to pass gas. States she has been trying to drink more water. Treatments SHIPPING/RECEIVING MANAGER: Reports: Other (see below) Other Treatments SHIPPING/RECEIVING MANAGER: states he gave her some laxative pills - Related Data Allergies Allergy/AdvReac Type Severity Reaction Status Date / Time No Known Allergies Allergy Verified 09/25/20 15:33 Home Meds: Home Meds Cholecalciferol (Vitamin D3) [Vitamin D3] 5,000 unit PO DAILY 10/30/13 [History] Multivitamin with Minerals [Multiple Vitamin] 1 tab PO DAILY 10/30/13 [History] Simvastatin [Zocor] 20 mg PO DAILY 10/30/13 [History] Aspirin [Adult Low Dose Aspirin EC] 81 mg PO DAILY 04/30/14 [History] Carbidopa/Levodopa [Carbidopa-Levodopa 25-100 Tab] 1 each PO QID 02/16/19 [History] Omeprazole 20 mg PO DAILY 02/16/19 [History] Denosumab [Prolia] 60 mg SUBCUT ASDIRECTED 08/23/19 [History] Mirtazapine 15 mg PO BEDTIME 03/27/20 [History] Potassium Chloride 40 meq PO DAILY #14 tablet.er 04/25/20 [Rx] Docusate Sodium [Colace] 100 mg PO BID PRN cap 06/13/20 [Rx] Past Medical History HEENT History: Reports: Hard of Hearing Cardiovascular History: Reports: High Cholesterol Gastrointestinal History: Reports: Chronic Constipation, GERD, PUD Genitourinary History: Reports: Other (See Below) Other Genitourinary History: hematuria 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: Musculoskeletal History: Reports: Arthritis, Osteoporosis Neurological History: Reports: Parkinson's Psychiatric History: Reports: Depression Endocrine/Metabolic History: Reports: Vitamin D Deficiency Hematologic History: Reports: Iron Deficiency - Past Surgical History HEENT Surgical History: Reports: None Other HEENT Surgeries/Procedures: lens replaced Cardiovascular Surgical History: Reports: None GI Surgical History: Reports: Appendectomy Female Surgical History: Reports: Tubal Ligation Endocrine Surgical History: Reports: None Neurological Surgical History: Reports: None Musculoskeletal Surgical History: Reports: None Social & Family History - Family History Family Medical History: No Pertinent Family History - Caffeine Use Caffeine Use: Reports: None - Living Situation & Occupation Living situation: Reports: , with Spouse Occupation: Employed ED ROS GENERAL - Review of Systems Review Of Systems: Comprehensive ROS is negative, except as noted in HPI. ED EXAM, GI/ABD - Physical Exam Exam: See Below Exam Limited By: Altered Mental Status (chronic dementia) General Appearance: Alert, No Apparent Distress. No: Mild Distress, Moderate Distress, Severe Distress Neck: Normal Inspection, Supple Respiratory/Chest: No Respiratory Distress, Lungs Clear, Normal Breath Sounds, No Accessory Muscle Use Cardiovascular: Normal Peripheral Pulses, Regular Rate, Rhythm, No Edema, No Murmur GI/Abdominal Exam: Normal Bowel Sounds, Soft, Non-Tender, No Organomegaly, No Distention, No Abnormal Bruit, No Mass Neurological: Alert Psychiatric: Normal Affect, Normal Mood Skin Exam: Warm, Dry, Intact, Normal Color, No Rash Course - Vital Signs Last Recorded V/S: Last Vital Signs Temp 97.6 F 12/09/20 14:00 Pulse 94 12/09/20 14:00 Resp 16 12/09/20 14:00 BP 120/73 12/09/20 14:00 Pulse Ox 97 12/09/20 14:00 - Orders/Labs/Meds Orders: Active Orders 24 hr Category Date Time Status Abdomen 2V AP Flat Upright [CR] Stat Exams 12/09/20 14:11 Taken Departure - Departure Time of Disposition: 15:46 Disposition: Home, Self-Care 01 Clinical Impression: Constipation Qualifiers: Constipation type: chronic idiopathic constipation Qualified Code(s): K59.04 - Chronic idiopathic constipation - Discharge Information Instructions: Chronic Constipation, Constipation, Adult, [id number] Referrals: Anjel Cason PA-C [Primary Care Provider] - Forms: ED Department Discharge Additional Instructions: 1) Encourage to push fluids 2) Marielle had a bowel movement while waiting in the ED 3) May continue with laxatives. 4) Encourage using stool softener daily, Miralax, Metamucil, etc.. 5) Follow up if any concerns. Sepsis Event Note (ED) - Evaluation Sepsis Screening Result: No Definite Risk - Focused Exam Vital Signs: Vital Signs Temp Pulse Resp BP Pulse Ox 12/09/20 14:00 97.6 F 94 16 120/73 97 - Problem List & Annotations (1) Constipation SNOMED Code(s): 65250308 Code(s): K59.00 - CONSTIPATION, UNSPECIFIED Status: Acute Current Visit: Yes Qualifiers: Constipation type: unspecified constipation type Qualified Code(s): K59.00 - Constipation, unspecified - My Orders Last 24 Hours: My Active Orders 12/09/20 14:11 Abdomen 2V AP Flat Upright [CR] Stat - Assessment/Plan Last 24 Hours: My Active Orders 12/09/20 14:11 Abdomen 2V AP Flat Upright [CR] Stat Plan: X-ray of the abdomen did show stool present. Reviewed images with Dr. Jamil and didn't feel there was any obstruction. Moderate amount of gas. patient did have a bowel movement while in the ED. See additional instructions. Will discharge home at this time in satisfactory condition.
== END 2020-12-09 16:00 | disposition home or self-care (01) ==
LOC: CC.ED 13:55
DX: K59.04 Chronic idiopathic constipation (principal); E78.00 Pure hypercholesterolemia, unspecified; K21.9 Gastro-esophageal reflux disease without esophagitis; Z79.899 Other long term (current) drug therapy
CPT/HCPCS: 74019; 99283-25

== ENCOUNTER 2021-01-29 13:42 | Emergency (ER) | payer MEDICARE ==
[2021-01-29 14:12] VITALS: BP 150/80; PULSE 89
[2021-01-29 14:17] LABS: CHLORIDE,CL 107 mEq/L (98-106); SODIUM,NA 144 mEq/L (136-145)
--- NOTE | 2021-01-29 14:54 | EDM.PDOC ---
ED HPI GENERAL MEDICAL PROBLEM - General Chief Complaint: Abdominal Pain Stated Complaint: hAVING ABDOMINAL PAIN Time Seen by Provider: 01/29/21 13:50 Source of Information: Reports: Patient, Family, RN History Limitations: Reports: Altered Mental Status - History of Present Illness INITIAL COMMENTS - FREE TEXT/NARRATIVE: states that she has been having abdominal pain for several days. He is unsure when her last BM was and she states this AM but she has documented significant dementia and is unreliable to know if it is actual. Onset: Gradual Location: Reports: Abdomen Associated Symptoms: Reports: Loss of Appetite. Denies: Nausea/Vomiting - Related Data Allergies Allergy/AdvReac Type Severity Reaction Status Date / Time No Known Allergies Allergy Verified 12/09/20 19:37 Home Meds: Home Meds Cholecalciferol (Vitamin D3) [Vitamin D3] 5,000 unit PO DAILY 10/30/13 [History] Multivitamin with Minerals [Multiple Vitamin] 1 tab PO DAILY 10/30/13 [History] Simvastatin [Zocor] 20 mg PO DAILY 10/30/13 [History] Aspirin [Adult Low Dose Aspirin EC] 81 mg PO DAILY 04/30/14 [History] Carbidopa/Levodopa [Carbidopa-Levodopa 25-100 Tab] 1 each PO QID 02/16/19 [History] Omeprazole 20 mg PO DAILY 02/16/19 [History] Denosumab [Prolia] 60 mg SUBCUT ASDIRECTED 08/23/19 [History] Mirtazapine 15 mg PO BEDTIME 03/27/20 [History] Potassium Chloride 40 meq PO DAILY #14 tablet.er 04/25/20 [Rx] Docusate Sodium [Colace] 100 mg PO BID PRN cap 06/13/20 [Rx] Past Medical History HEENT History: Reports: Hard of Hearing Cardiovascular History: Reports: High Cholesterol Gastrointestinal History: Reports: Chronic Constipation, GERD, PUD Genitourinary History: Reports: Other (See Below) Other Genitourinary History: hematuria [employer]NIFE History: Reports: Musculoskeletal History: Reports: Arthritis, Osteoporosis Neurological History: Reports: Parkinson's Psychiatric History: Reports: Dementia, Depression Endocrine/Metabolic History: Reports: Vitamin D Deficiency Hematologic History: Reports: Iron Deficiency - Past Surgical History HEENT Surgical History: Reports: None Other HEENT Surgeries/Procedures: lens replaced Cardiovascular Surgical History: Reports: None GI Surgical History: Reports: Appendectomy Female Surgical History: Reports: Tubal Ligation Endocrine Surgical History: Reports: None Neurological Surgical History: Reports: None Musculoskeletal Surgical History: Reports: None Social & Family History - Family History Family Medical History: No Pertinent Family History - Tobacco Use Tobacco Use Status *Q: Never Tobacco User Second Hand Smoke Exposure: No - Caffeine Use Caffeine Use: Reports: None - Living Situation & Occupation Living situation: Reports: , with Spouse Occupation: Employed ED ROS GENERAL - Review of Systems Review Of Systems: Unable To Obtain Reason Not Obtained: Due to dementia ED EXAM, GI/ABD - Physical Exam Exam: See Below Exam Limited By: No Limitations General Appearance: Alert, No Apparent Distress Ears: Normal External Exam, Normal Canal Throat/Mouth: Normal Inspection, Normal Oropharynx Head: Atraumatic, Normocephalic Neck: Normal Inspection, Supple, Non-Tender Respiratory/Chest: No Respiratory Distress, Lungs Clear, Normal Breath Sounds Cardiovascular: Regular Rate, Rhythm GI/Abdominal Exam: Normal Bowel Sounds, Soft, Non-Tender Extremities: Normal Inspection, Normal Capillary Refill Neurological: Alert Skin Exam: Warm, Dry, Intact Course - Vital Signs Last Recorded V/S: Last Vital Signs Temp 97.7 F 01/29/21 14:11 Pulse 89 01/29/21 14:11 Resp 20 01/29/21 14:11 BP 150/80 H 01/29/21 14:11 Pulse Ox 97 01/29/21 14:11 - Orders/Labs/Meds Labs: Laboratory Tests 01/29/21 01/29/21 01/29/21 Range/Units 13:59 13:59 13:59 WBC 5.0 (4.0-11.0) 10^3/uL RBC 4.08 (4.00-5.50) x10^6/uL Hgb 12.6 (12.0-16.0) g/dL Hct 38.2 (37.0-47.0) % MCV 93.6 (83.0-97.0) fL MCH 30.9 (27.0-32.0) pg MCHC 33.0 (32.0-36.0) g/dL RDW Coeff of [place]rina 13.3 (11.0-15.0) % Plt Count 274 (150-400) 10^3/uL Immature Gran % (Auto) 0.0 (0.0-4.9) % Neut % (Auto) 57.9 (41-71) % Lymph % (Auto) 29.9 (24-44) % [place] % (Auto) 10.2 H (0-10) % Eos % (Auto) 1.6 (0-6) % Baso % (Auto) 0.4 (0-1) % Neut # (Auto) 2.91 (1.80-8.00) x10^3/uL Lymph # (Auto) 1.50 (0.60-5.00) 10^3/uL [place] # (Auto) 0.51 (0.00-1.50) 10^3/uL Eos # (Auto) 0.08 (0.00-1.50) 10^3/uL Baso # (Auto) 0.02 (0.00-0.50) 10^3/uL Immature Gran # (Auto) 0.00 (0.00-0.49) 10^3/uL Sodium 144 (136-145) mEq/L Potassium 3.6 (3.5-5.0) mEq/L Chloride 107 H (98-106) mEq/L Carbon Dioxide 28 (21-32) mmol/L BUN 25 H (7-18) mg/dL Creatinine 0.8 (0.6-1.0) mg/dL Est Cr Clr Drug Dosing TNP Estimated GFR (MDRD) > 60 (>=60) mL/min Glucose 113 H (75-99) mg/dL Lactic Acid (0.4-2.0) mmol/L Calcium 8.6 (8.4-10.1) mg/dL Total Bilirubin 0.3 (0.0-1.0) mg/dL AST 14 L (15-37) U/L ALT 12 (12-78) U/L Alkaline Phosphatase 79 (46-116) U/L C-Reactive Protein < 0.2 L (0.2-0.8) mg/dL Total Protein 5.7 L (6.4-8.2) g/dL Albumin 3.5 (3.4-5.0) g/dL Urine Color Yellow (YELLOW) Urine Appearance Clear (CLEAR) Urine pH 6.0 (4.5-8.0) Ur Specific [place] 1.025 H (1.003-1.020) Urine Protein Negative (NEGATIVE) mg/dL Urine Glucose (UA) Negative (NEGATIVE) mg/dL Urine Ketones 15 H (NEGATIVE) mg/dL Urine Occult Blood Trace-intact H (NEGATIVE) Urine Nitrite Negative (NEGATIVE) Urine Bilirubin Negative (NEGATIVE) Urine Urobilinogen 1.0 (0.2-1.0) EU/dL Ur Leukocyte Esterase Negative (NEGATIVE) Urine RBC 5-10 H (0-5) /HPF Urine WBC 0-5 (0-5) /HPF Ur Epithelial Cells Few H (NOT SEEN) /HPF Calcium Oxalate Crystal Few H (NOT SEEN) /HPF Urine Bacteria Few H (NOT SEEN) /HPF Urine Mucus Moderate H (NOT SEEN) /HPF Urinalysis Comment 01/29/21 Range/Units 13:59 WBC (4.0-11.0) 10^3/uL RBC (4.00-5.50) x10^6/uL Hgb (12.0-16.0) g/dL Hct (37.0-47.0) % MCV (83.0-97.0) fL MCH (27.0-32.0) pg MCHC (32.0-36.0) g/dL RDW Coeff of [place]rina (11.0-15.0) % Plt Count (150-400) 10^3/uL Immature Gran % (Auto) (0.0-4.9) % Neut % (Auto) (41-71) % Lymph % (Auto) (24-44) % [place] % (Auto) (0-10) % Eos % (Auto) (0-6) % Baso % (Auto) (0-1) % Neut # (Auto) (1.80-8.00) x10^3/uL Lymph # (Auto) (0.60-5.00) 10^3/uL [place] # (Auto) (0.00-1.50) 10^3/uL Eos # (Auto) (0.00-1.50) 10^3/uL Baso # (Auto) (0.00-0.50) 10^3/uL Immature Gran # (Auto) (0.00-0.49) 10^3/uL Sodium (136-145) mEq/L Potassium (3.5-5.0) mEq/L Chloride (98-106) mEq/L Carbon Dioxide (21-32) mmol/L BUN (7-18) mg/dL Creatinine (0.6-1.0) mg/dL Est Cr Clr Drug Dosing Estimated GFR (MDRD) (>=60) mL/min Glucose (75-99) mg/dL Lactic Acid 1.5 (0.4-2.0) mmol/L Calcium (8.4-10.1) mg/dL Total Bilirubin (0.0-1.0) mg/dL AST (15-37) U/L ALT (12-78) U/L Alkaline Phosphatase (46-116) U/L C-Reactive Protein (0.2-0.8) mg/dL Total Protein (6.4-8.2) g/dL Albumin (3.4-5.0) g/dL Urine Color (YELLOW) Urine Appearance (CLEAR) Urine pH (4.5-8.0) Ur Specific [place] (1.003-1.020) Urine Protein (NEGATIVE) mg/dL Urine Glucose (UA) (NEGATIVE) mg/dL Urine Ketones (NEGATIVE) mg/dL Urine Occult Blood (NEGATIVE) Urine Nitrite (NEGATIVE) Urine Bilirubin (NEGATIVE) Urine Urobilinogen (0.2-1.0) EU/dL Ur Leukocyte Esterase (NEGATIVE) Urine RBC (0-5) /HPF Urine WBC (0-5) /HPF Ur Epithelial Cells (NOT SEEN) /HPF Calcium Oxalate Crystal (NOT SEEN) /HPF Urine Bacteria (NOT SEEN) /HPF Urine Mucus (NOT SEEN) /HPF Urinalysis Comment - Re-Assessments/Exams Free Text/Narrative Re-Assessment/Exam: 01/29/21 1230 xray reviewed with that shows a large amount of stool and that the labs are all normal. Departure - Departure Time of Disposition: 14:50 Disposition: Home, Self-Care 01 Condition: Good Clinical Impression: Constipation Qualifiers: Constipation type: slow transit constipation Qualified Code(s): K59.01 - Slow transit constipation - Discharge Information *PRESCRIPTION DRUG MONITORING PROGRAM REVIEWED*: Not Applicable *COPY OF PRESCRIPTION DRUG MONITORING REPORT IN PATIENT FLO: Not Applicable Instructions: Constipation, Adult Forms: ED Department Discharge Additional Instructions: Magnesium citrate tonight when you get home- Expect that she may have some stomach cramps with this that will resolve when constipation is cleared up. start stool softeners twice a day- every day If she doesn't have large stool by Tuesday morning you can repeat the magnesium citrate Push fluids as much as possible keep track of stools as she won't be able to remember - Problem List & Annotations (1) Constipation SNOMED Code(s): 21722343 Code(s): K59.00 - CONSTIPATION, UNSPECIFIED Status: Acute Priority: High Qualifiers: Constipation type: slow transit constipation Qualified Code(s): K59.01 - Slow transit constipation - Problem List Review Problem List Initiated/Reviewed/Updated: Yes
== END 2021-01-29 15:05 | disposition home or self-care (01) ==
LOC: CC.ED 13:42
DX: K59.01 Slow transit constipation (principal); E78.00 Pure hypercholesterolemia, unspecified; K21.9 Gastro-esophageal reflux disease without esophagitis; M19.90 Unspecified osteoarthritis, unspecified site; G20 Parkinson's disease; F02.80 Dementia in other diseases classified elsewhere, unspecified severity, without behavioral disturbance, psychotic disturbance, mood disturbance, and anxiety; Z79.82 Long term (current) use of aspirin; Z79.899 Other long term (current) drug therapy
CPT/HCPCS: 36415; 74019; 80053; 81001; 83605; 85025; 86140; 99284

== ENCOUNTER 2021-03-01 20:08 | Observation (INO) | payer MEDICARE ==
[2021-03-01 21:02] LABS: CHLORIDE,CL 105 mEq/L (98-106); SODIUM,NA 146 mEq/L (136-145)
[2021-03-01] MEDS ORDERED: Docusate Sodium 100 MG Cap PO PRN (22:11)
[2021-03-01] MEDS ORDERED: Sodium Chloride 0.9% 10 ML Syringe FLUSH PRN (22:13)
[2021-03-01] MEDS ORDERED: Ondansetron 4 MG/2 ML SDV IV PRN (22:13)
[2021-03-01] MEDS ORDERED: Ondansetron 4 MG Tab.DIS PO PRN (22:13)
[2021-03-01] MEDS ORDERED: Acetaminophen 325 MG Tab PO PRN (22:13)
[2021-03-01] MEDS: Sodium Chloride 0.9% 1,000 ML IV SCH (22:46)
[2021-03-02] MEDS: Sodium Chloride 0.9% 1,000 ML IV SCH (05:59)
[2021-03-02] MEDS ORDERED: Pantoprazole 40 MG Tab.CR PO SCH (07:00)
[2021-03-02 07:39] LABS: CHLORIDE,CL 105 mEq/L (98-106); SODIUM,NA 145 mEq/L (136-145)
[2021-03-02] MEDS ORDERED: Potassium Chloride 10 MEQ Tab.ER PO SCH (08:00)
[2021-03-02] MEDS ORDERED: Carbidopa/Levodopa 25-100 MG Tab PO SCH (08:00)
[2021-03-02] MEDS ORDERED: Simvastatin 20 MG Tab PO SCH (08:00)
[2021-03-02] MEDS ORDERED: Aspirin 81 MG Tab.EC PO SCH (08:00)
[2021-03-02] MEDS ORDERED: Cholecalciferol (Vitamin D3) 25 MCG Tab PO SCH (08:00)
[2021-03-02 08:19] VITALS: BP 166/90; PULSE 84
[2021-03-02] MEDS ORDERED: Mirtazapine 15 MG Tab PO SCH (20:00)
== END 2021-03-02 10:30 | disposition home or self-care (01) ==
LOC: CC.ED 20:08 → CC.MS 21:16 → UNDOADMOB 21:40
PROVIDERS: ADMIT Physician Assistant Medical; ATTEND Family Medicine
DX: E86.0 Dehydration (principal); E78.00 Pure hypercholesterolemia, unspecified; K21.9 Gastro-esophageal reflux disease without esophagitis; M81.0 Age-related osteoporosis without current pathological fracture; E55.9 Vitamin D deficiency, unspecified; Z90.49 Acquired absence of other specified parts of digestive tract; Z79.82 Long term (current) use of aspirin; Z98.890 Other specified postprocedural states; Z20.822 Contact with and (suspected) exposure to COVID-19; Z79.899 Other long term (current) drug therapy
CPT/HCPCS: 36415; 71045; 80048; 80053; 81003; 85025; 86140; 93005; 99285-25; A9270-GY; G0378; J7030; U0002

== ENCOUNTER 2021-03-30 15:28 | Emergency (ER) | payer MEDICARE ==
[2021-03-30 15:35] VITALS: BP 164/97; PULSE 90
[2021-03-30] MEDS: Sodium Chloride 0.9% 1,000 ML IV ONE (15:51)
[2021-03-30 15:57] LABS: CHLORIDE,CL 104 mEq/L (98-106); SODIUM,NA 144 mEq/L (136-145)
== END 2021-03-30 18:35 | disposition home or self-care (01) ==
LOC: CC.ED 15:28
DX: E86.0 Dehydration (principal); F03.90 Unspecified dementia, unspecified severity, without behavioral disturbance, psychotic disturbance, mood disturbance, and anxiety; E78.00 Pure hypercholesterolemia, unspecified; K21.9 Gastro-esophageal reflux disease without esophagitis; Z79.899 Other long term (current) drug therapy; Z79.82 Long term (current) use of aspirin
CPT/HCPCS: 36415; 80053; 81001; 83735; 85025; 99283; J7030

== ENCOUNTER 2021-09-06 12:38 | Emergency (ER) | payer MEDICARE ==
[2021-09-06 12:42] VITALS: BP 142/94; PULSE 89
== END 2021-09-06 14:51 | disposition home or self-care (01) ==
LOC: CC.ED 12:38
DX: S72.001A Fracture of unspecified part of neck of right femur, initial encounter for closed fracture (principal); E78.00 Pure hypercholesterolemia, unspecified; K21.9 Gastro-esophageal reflux disease without esophagitis; Z79.899 Other long term (current) drug therapy; Z79.82 Long term (current) use of aspirin; W18.30XA Fall on same level, unspecified, initial encounter
CPT/HCPCS: 99283; 99284